=== PATIENT | female | born 1970 | race Caucasian/White ===

== ENCOUNTER 2017-04-11 14:15 | Inpatient (IN) | payer OTHER ==
[~2017-04-11] VITALS: Ht 160 cm; Wt 50.0 kg
[2017-04-11 13:40] VITALS: BP 138/69; RESP 18
[2017-04-11 14:41] VITALS: PULSE 62
[2017-04-11] MEDS ORDERED: DOCUSATE SODIUM 100 MG CAP PO PRN (15:30)
[2017-04-11] MEDS ORDERED: ALBUTEROL/IPRATROPIUM (NEB) 3 ML AMP HHN PRN (15:30)
[2017-04-11] MEDS ORDERED: hydrALAzine 20 MG INJ IV PRN (15:30)
[2017-04-11] MEDS ORDERED: ACETAMINOPHEN 325 MG TAB PO PRN (15:30)
[2017-04-11] MEDS ORDERED: NITROGLYCERIN (SL) 0.4 MG TAB SL PRN (15:30)
[2017-04-11] MEDS ORDERED: MAGNESIUM HYDROXIDE 30ML CUP PO PRN (15:30)
[2017-04-11] MEDS ORDERED: NA PHOSPHATE/BIPHOS 133 ML ENEMA PR PRN (15:30)
[2017-04-11] MEDS ORDERED: HYDROCODONE/APAP (5/325) TAB PO PRN (15:30)
--- NOTE | 2017-04-11 15:41 | HP ---
Date/Time of Note Date/Time of Note DATE: 04/11/17 TIME: 15:36 Assessment/Plan VTE Prophylaxis VTE Prophylaxis Intervention: heparin Assessment/Plan Chief Complaint/Hosp Course Assessment and plan: 46-year-old female with abdominal pain, with signs of acute cholecystitis, elevated LFTs, pancreatitis, positive drug screen 1. Abdominal pain: Secondary to combination of possible cholecystitis and pancreatitis and also UTI - admit patient to telemetry floor. Check TSH, A1c, lipid panel. Trend her LFTs. Order for MRCP. Get GI and surgery consults. IV fluids, antiemetics 2. UTI: Again broad-spectrum antibiotics, follow final culture results, Tylenol as needed pain fever 3. Positive drug screen: Again positive for lead, opiates, amphetamines. Prior history of heroin abuse -Monitor for withdrawal, counseled on cessation 4. Hypertension: Blood pressure presently stable, hydralazine as needed Problems: HPI/ROS Admit Date/Time Admit Date/Time Apr 11, 2017 at 14:15 Hx of Present Illness 46-year-old female past medical history of 4, IV drug abuse possibly heroin, and hypertension, who presented to outside hospital earlier today because of abdominal pain. Patient states the symptoms have been going on for the last 2 days. Apparently she had eaten some outside food at a fast food joint, a chicken Caesar salad, and the abdominal pain symptoms started right after that. She had nonbilious nonbloody vomiting symptoms and positive nausea , but no upper or lower GI bleeding, no diarrhea or constipation, no chest pain or shortness of breath, no headaches or dizziness or loss of consciousness. When she arrived at the outside hospital she was found with elevated lipase levels, signs of possible acute cholecystitis, positive drug screen for amphetamines, marijuana, and opiates. She also has a positive EU TI, and elevated liver enzymes. PMH/Family/Social Past Surgical History Past Surgical Hx: other ( 4, constructive hernia surgery) Family History Significant Family History: no pertinent family hx Social History Smoking Status: Current every day smoker (Half a pack of cigarettes a day 15 years) Drug Use: other (Methamphetamine, opiates, marijuana, possibly heroin) Exam/Review of Systems Vital Signs Vitals Vital Signs Date Time Temp Pulse Resp B/P Pulse Ox O2 Delivery O2 Flow Rate FiO2 04/11/17 14:41 62 Exam Exam General: Lying in bed, in mild to moderate distress, but answering questions HEENT: Pupils equal round reactive to light extraocular muscles intact Neck: Supple Oscillatory: Clear to auscultation bilaterally Cardiovascular: S1-S2 heard no rubs no gallops Abdomen: Tenderness to palpation epigastric area and right upper quadrant area, normal bowel sounds, no rebound or guarding Muscular skeletal: No lower extremity edema bilaterally Neurologic: No focal deficits Medications Medications Current Medications Ondansetron HCl (Zofran Inj) 4 mg Q6H PRN IV NAUSEA AND/OR VOMITING; Start at 15:30 Acetaminophen (Tylenol Tab) 650 mg Q6H PRN PO PAIN LEVEL 1-3 OR FEVER; Start at 15:30 Acetaminophen/ Hydrocodone Bitart ([place] (5/325)) 1 tab Q6H PRN PO MODERATE PAIN LEVEL 4-6; Start 04/11/17 at 15:30 Morphine Sulfate (morphine) 2 mg Q4H PRN IV SEVERE PAIN LEVEL 7-10; Start 04/11 at 15:30 Docusate Sodium (Colace) 100 mg Q12H PRN PO CONSTIPATION; Start 04/11/17 at 15: 30 Magnesium Hydroxide (Milk Of Mag) 30 ml DAILY PRN PO CONSTIPATION; Start at 15:30 Sodium Biphosphate/ Sodium Phosphate (Fleet Enema) 133 ml DAILY PRN [place] CONSTIPATION; Start 04/11/17 at 15:30 Heparin Sodium (Porcine) (Heparin (5000 Units/0.5 ml)) 5,000 unit Q12 SC ; Start 04/11/17 at 21:00 Lorazepam 0.5 mg 0.5 mg Q6H PRN IV ANXIETY; Start 04/11/17 at 15:30 Sodium Chloride (NS) 1,000 ml @ 100 mls/hr Q10H IV ; Start 04/11/17 at 15:13 Hydralazine HCl (Apresoline) 10 mg Q6H PRN IV ELEVATED BLOOD PRESSURE; Start at 15:30 Nitroglycerin (Nitroglycerin (Sl Tab) 0.4 Mg) 1 tab Q5M PRN SL ANGINA; Start at 15:30 LUCIANO MAIER Apr 11, 2017 15:41
[2017-04-11 15:59] VITALS: BP 158/83; RESP 17
[2017-04-11 16:12] LABS: ALBUMIN 3.3 g/dl (3.3-4.9); BILIRUBIN,DIRECT 2.3 mg/dl (0.00-0.20); BILIRUBIN,INDIRECT 0.6 mg/dl (0-1.1); BILIRUBIN,TOTAL 2.9 mg/dl (0.2-1.3); TOTAL PROTEIN 6.7 g/dl (6.1-8.1)
[2017-04-11] MEDS: ONDANSETRON 4 MG INJ IV PRN ×2 (16:17→22:45)
[2017-04-11] MEDS: SOD CHLORIDE 0.9% 1,000 ML IV SCH (16:17)
[2017-04-11] MEDS: morphine 2 MG INJ IV PRN ×2 (16:17→21:36)
[2017-04-11 16:20] VITALS: Ht 160 cm; Wt 50.0 kg
--- NOTE | 2017-04-11 16:48 | CONS ---
Date/Time of Note Date/Time of Note DATE: 04/11/17 TIME: 16:32 Assessment/Plan Assessment/Plan Additional Assessment/Plan Assessment * Right upper quadrant pain cholelithiasis by CT scan * Elevated transaminases R/O intrahepatic vs extrahepatic etiology R/O choledocholithiasis vs infectious vs others * Drug abuse * History of hypertension Plan * Pain control * Hepatitis profile/RUBY testing * MRCP * NPO * case discussed with Dr Arora * Further orders will depend on clinical course Consultation Date/Type/Reason Admit Date/Time Apr 11, 2017 at 14:15 Date of Consultation: Apr 11, 2017 Type of Consultation: Gastroenterology Reason for Consultation transaminitis/pancreatitis Referring Provider: LUCIANO MAIER Hx of Present Illness 46 year old female with history of drug abuse ,hypertension was transferred to our facility because of abdominal pain and insurance issues.Present condition apparently started 2 day prior to consult at epigastric pain radiating to right upper abdomen and to the back with associated nausea and vomiting She denies any fever ,hematemesis nor chest pain.Workup performed at [facility] revealed Total bilirubin 3.8,alkaline phosphatase 338,ALT 2047,AST 3648 ,WBC 6.[address] abdomen gallbladder thickening,possibility of cholecystitis.Ultrasound revealed multiple gallstones with pericholecystic edema ,gallbladder thickening. Patient was subsequently transferred here Presently patient still right upper quadrant nauseated. Constitutional: improved, no complaints Eyes: no complaints ENT: no complaints Respiratory: no complaints Cardiovascular: no complaints Gastrointestinal: nausea, pain, vomiting Genitourinary: no complaints Musculoskeletal: no complaints Skin: no complaints Neurologic: no complaints Endocrine: no complaints Lymphatic: no complaints Psychological: nl mood/affect, no complaints Immunologic: no complaints Past Medical History Medical History: hypertension Past Surgical History Past Surgical Hx: other ( section) Social History Smoking Status: Current every day smoker (Half a pack of cigarettes a day 15 years) Drug Use: other (Methamphetamine, opiates, marijuana, possibly heroin) Exam/Review of Systems Vital Signs Vitals Vital Signs Date Time Temp Pulse Resp B/P Pulse Ox O2 Delivery O2 Flow Rate FiO2 04/11/17 14:41 62 Exam Constitutional: alert, oriented, well developed Psych: nl mood/affect, no complaints Head: atraumatic, normocephalic Eyes: EOMI, PERRL, nl conjunctiva, nl lids, nl sclera ENMT: nl external ears & nose, nl lips & teeth, nl nasal mucosa & septum Neck: non-tender, supple Respiratory: clear to auscultation, normal air movement Cardiovascular: nl pulses, regular rate and rhythm Gastrointestinal: bowel sounds, other ((+) [place] sign), soft, tender (right upper quadrant) Musculoskeletal: nl extremities to inspection, nl gait and stance Extremities: normal pulses Neurological: nl speech, nl strength Skin: nl turgor, No rash or lesions Lymph: nl lymph nodes Results Results 24 hrs Laboratory Tests Test 04/11/17 15:41 Free Thyroxine 0.76 Medications Medications Current Medications Ondansetron HCl (Zofran Inj) 4 mg Q6H PRN IV NAUSEA AND/OR VOMITING Last administered on 04/11/17 16:17; Admin Dose 4 MG; Start 04/11/17 at 15:30 Acetaminophen (Tylenol Tab) 650 mg Q6H PRN PO PAIN LEVEL 1-3 OR FEVER; Start at 15:30 Acetaminophen/ Hydrocodone Bitart ([place] (5/325)) 1 tab Q6H PRN PO MODERATE PAIN LEVEL 4-6; Start 04/11/17 at 15:30 Morphine Sulfate (morphine) 2 mg Q4H PRN IV SEVERE PAIN LEVEL 7-10 Last administered on 04/11/17 16:17; Admin Dose 2 MG; Start 04/11/17 at 15:30 Docusate Sodium (Colace) 100 mg Q12H PRN PO CONSTIPATION; Start 04/11/17 at 15: 30 Magnesium Hydroxide (Milk Of Mag) 30 ml DAILY PRN PO CONSTIPATION; Start at 15:30 Sodium Biphosphate/ Sodium Phosphate (Fleet Enema) 133 ml DAILY PRN [place] CONSTIPATION; Start 04/11/17 at 15:30 Heparin Sodium (Porcine) (Heparin (5000 Units/0.5 ml)) 5,000 unit Q12 SC ; Start 04/11/17 at 21:00 Lorazepam 0.5 mg 0.5 mg Q6H PRN IV ANXIETY; Start 04/11/17 at 15:30 Sodium Chloride (NS) 1,000 ml @ 100 mls/hr Q10H IV Last administered on 16:17; Admin Dose 100 MLS/HR; Start 04/11/17 at 15:13 Hydralazine HCl (Apresoline) 10 mg Q6H PRN IV ELEVATED BLOOD PRESSURE; Start at 15:30 Nitroglycerin 1 tab 1 tab Q5M PRN SL ANGINA; Start 04/11/17 at 15:30 Piperacillin Sod/ Tazobactam Sod (Zosyn 3.375gm/ 100 ml (Pmx)) 100 ml @ 25 mls/ hr TID@02,10,18 IVPB ; Start 04/11/17 at 18:00 NAVEED IRIZARRY NP Apr 11, 2017 16:42
[2017-04-11] MEDS: PIPER-TAZO 3.375 GM IV (PMX) 100 ML IVPB SCH (17:44)
[2017-04-11 19:47] VITALS: BP 158/97; RESP 19
[2017-04-11 20:10] VITALS: PULSE 55
[2017-04-11] MEDS: HEPARIN 5,000 UNIT/0.5 ML VIAL SC SCH (21:32)
[2017-04-12] MEDS: KETOROLAC 30 MG INJ IV PRN ×3 (00:24→22:59)
[2017-04-12] MEDS: morphine 4 MG/ML VIAL IV PRN ×2 (01:05→14:21)
[2017-04-12] MEDS: SOD CHLORIDE 0.9% 1,000 ML IV SCH ×3 (01:13→11:13)
[2017-04-12] MEDS: PIPER-TAZO 3.375 GM IV (PMX) 100 ML IVPB SCH ×3 (01:51→18:06)
[2017-04-12] MEDS: LORAZEPAM 2 MG INJ IV PRN ×2 (02:04→18:10)
[2017-04-12 07:33] VITALS: BP 159/88; RESP 16
[2017-04-12 08:18] LABS: HAAIG REFLEX REFLEX FILED
[2017-04-12 08:24] LABS: HEMOGLOBIN 13.3 g/dl (12.0-16.0); MEAN CORPUSCULAR HEMOGLOBIN 28.3 pg (29.0-33.0); MEAN CORPUSCULAR HGB CONC 32.4 g/dl (32.0-37.0); MEAN CORPUSCULAR VOLUME 87.2 fl (82.0-101.0); MEAN PLATELET VOLUME 11.6 fl (7.4-10.4); PLATELET COUNT 252 10^3/UL (140-415); RED CELL DISTRIBUTION WIDTH 14.8 % (11.5-14.5); WHITE BLOOD COUNT 5.7 10^3/ul (4.8-10.8)
[2017-04-12 08:36] LABS: POSITIVE DIFF @See below
[2017-04-12 08:46] LABS: ALBUMIN 3.2 g/dl (3.3-4.9); BILIRUBIN,DIRECT 2.8 mg/dl (0.00-0.20); BILIRUBIN,INDIRECT 0.8 mg/dl (0-1.1); BILIRUBIN,TOTAL 3.6 mg/dl (0.2-1.3); TOTAL PROTEIN 6.3 g/dl (6.1-8.1)
[2017-04-12 08:49] LABS: CALCIUM 8.7 mg/dl (8.4-10.2); CHOL/HDL RATIO 7.2 RATIO; CREATININE 0.64 mg/dl (0.44-1.00); MAGNESIUM 1.9 mg/dl (1.7-2.5); PHOSPHORUS 3.3 mg/dl (2.5-4.9); POTASSIUM 3.9 mmol/L (3.5-5.1)
[2017-04-12 09:00] LABS: INR 1.19; PROTIME 15.2 Sec (12.2-14.2); PT RATIO 1.2
[2017-04-12] MEDS: HEPARIN 5,000 UNIT/0.5 ML VIAL SC SCH ×2 (09:14→21:03)
[2017-04-12 09:35] LABS: ANISOCYTOSIS 2+ (0-0); BURR CELLS 2+ (0-0); HYPOCHROMASIA 2+ (0-0); MONOCYTES % (M) 7 % (0-11); PLATELET ESTIMATE NORMAL; POIKILOCYTOSIS 2+ (0-0); POLYCHROMASIA 1+ (0-0)
[2017-04-12 12:59] LABS: THYROID STIMULATING HORMONE 6.81 MIU/L (0.465-4.680)
[2017-04-12 13:17] LABS: HEPATITIS B CORE ANTIBODY REACTIVE (NEGATIVE)
--- NOTE | 2017-04-12 15:01 | PN ---
Date/Time of Note Date/Time of Note DATE: 04/12/17 TIME: 14:58 Assessment/Plan VTE Prophylaxis VTE Prophylaxis Intervention: heparin Lines/Catheters IV Catheter Type (from [facility]): Peripheral IV Urinary Cath still in place: No Assessment/Plan Chief Complaint/Hosp Course Assessment and plan: 46-year-old female with abdominal pain, with signs of acute cholecystitis, elevated LFTs, pancreatitis, positive drug screen, now with positive hepatitis B antigen and antibody findings. 1. Abdominal pain: Secondary to combination of possible cholecystitis, UTI, and possibly active hepatitis B inflammation/infection. Her AST and ALT are significantly elevated, in 4485-6137 range. Also elevated total bilirubin and direct bilirubin. -Continue to trend her LFTs. -Follow-up MRCP result. -Follow-up GI and surgery consult recommended -Continue IV fluids, antiemetics -We will order for more hepatitis B antibodies including delta, core, surface , as well as try to obtain hepatitis B viral load. Also get infectious disease consult. 2. UTI: Again broad-spectrum antibiotics, follow final culture results, Tylenol as needed pain fever 3. Positive drug screen: Again positive for lead, opiates, amphetamines. Prior history of heroin abuse -Monitor for withdrawal, counseled on cessation 4. Hypertension: Blood pressure presently stable, hydralazine as needed Problems: Subjective 24 Hr Interval Summary Free Text/Dictation Patient still with moderate amount of abdominal pain, seen by GI team. Awaiting MRCP. Being evaluated by surgery team right now. Exam/Review of Systems Vital Signs Vitals Vital Signs Date Time Temp Pulse Resp B/P Pulse Ox O2 Delivery O2 Flow Rate FiO2 04/12/17 07:33 98.2 87 16 159/88 97 Intake and Output 04/11/17 04/11/17 04/12/17 15:00 23:00 07:00 Intake Total 1150 ml Balance 1150 ml Exam General: Lying in bed, in mild to moderate distress, but answering questions HEENT: Pupils equal round reactive to light extraocular muscles intact Neck: Supple Oscillatory: Clear to auscultation bilaterally Cardiovascular: S1-S2 heard no rubs no gallops Abdomen: Tenderness to palpation epigastric area and right upper quadrant area, normal bowel sounds, no rebound or guarding Muscular skeletal: No lower extremity edema bilaterally Neurologic: No focal deficits Results Result Diagram: 04/12/1764304/12/1744 Results 24 hrs Laboratory Tests Test 04/11/17 15:41 04/12/17 06:44 Total Bilirubin 2.9 H 3.6 H Direct Bilirubin 2.30 H 2.80 H Indirect Bilirubin 0.6 0.8 Aspartate Amino Transf (AST/SGOT) 3697 H 3830 H Alanine Aminotransferase (ALT/SGPT) 2234 H 2309 H Alkaline Phosphatase 332 H 330 H Total Protein 6.7 6.3 Albumin 3.3 3.2 L Free Thyroxine 0.76 White Blood Count 5.7 Red Blood Count 4.70 Hemoglobin 13.3 Hematocrit 41.0 Mean Corpuscular Volume 87.2 Mean Corpuscular Hemoglobin 28.3 L Mean Corpuscular Hemoglobin Concent 32.4 Red Cell Distribution Width 14.8 H Platelet Count 252 Mean Platelet Volume 11.6 H Neutrophils % Segmented Neutrophils % (Manual) 67 Band Neutrophils % (Manual) 5 H Lymphocytes % Lymphocytes % (Manual) 21 Monocytes % Monocytes % (Manual) 7 Eosinophils % Basophils % Nucleated Red Blood Cells % 0.0 Neutrophils # (Manual) 4 Band Neutrophils # 0.2 Absolute Lymphocytes (Manual) 1.1 Lymphocytes # Monocytes # Absolute Monocytes (Manual) 0.3 Eosinophils # Basophils # Nucleated Red Blood Cells # Platelet Estimate NORMAL Polychromasia 1+ Hypochromasia 2+ Poikilocytosis 2+ Anisocytosis 2+ Macrocytosis 2+ Prothrombin Time 15.2 H Prothrombin Time Ratio 1.2 INR International Normalized Ratio 1.19 Sodium Level 137 Potassium Level 3.9 Chloride Level 105 Carbon Dioxide Level 26 Anion Gap 10 Blood Urea Nitrogen 9 Creatinine 0.64 Glucose Level 82 Hemoglobin A1c 5.5 Calcium Level 8.7 Phosphorus Level 3.3 Magnesium Level 1.9 Ferritin 126.0 Triglycerides Level 152 H Cholesterol Level 101 LDL Cholesterol, Calculated 57 HDL Cholesterol 14 L Cholesterol/HDL Ratio 7.2 Lipase 92 Thyroid Stimulating Hormone (TSH) 6.810 H Hepatitis B Surface Antigen POSITIVE H Hepatitis B Core Total Antibody REACTIVE H Hepatitis C Antibody NEGATIVE Medications Medications Current Medications Ondansetron HCl (Zofran Inj) 4 mg Q6H PRN IV NAUSEA AND/OR VOMITING Last administered on 04/11/17t 22:45; Admin Dose 4 MG; Start 04/11/17 at 15:30 Acetaminophen (Tylenol Tab) 650 mg Q6H PRN PO PAIN LEVEL 1-3 OR FEVER; Start at 15:30 Acetaminophen/ Hydrocodone Bitart ([place] (5/325)) 1 tab Q6H PRN PO MODERATE PAIN LEVEL 4-6 Last administered on 04/12/17 02:04; Admin Dose 1 TAB; Start at 15:30 Docusate Sodium (Colace) 100 mg Q12H PRN PO CONSTIPATION; Start 04/11/17 at 15: 30 Magnesium Hydroxide (Milk Of Mag) 30 ml DAILY PRN PO CONSTIPATION; Start at 15:30 Sodium Biphosphate/ Sodium Phosphate (Fleet Enema) 133 ml DAILY PRN [place] CONSTIPATION; Start 04/11/17 at 15:30 Heparin Sodium (Porcine) (Heparin (5000 Units/0.5 ml)) 5,000 unit Q12 SC Last administered on 04/12/17 09:14; Admin Dose 5,000 UNIT; Start 04/11/17 at 21:00 Lorazepam 0.5 mg 0.5 mg Q6H PRN IV ANXIETY Last administered on 04/12/17 02:04 ; Admin Dose 0.5 MG; Start 04/11/17 at 15:30 Sodium Chloride (NS) 1,000 ml @ 100 mls/hr Q10H IV Last administered on 06:54; Admin Dose 100 MLS/HR; Start 04/11/17 at 15:13 Hydralazine HCl (Apresoline) 10 mg Q6H PRN IV ELEVATED BLOOD PRESSURE; Start at 15:30 Nitroglycerin 1 tab 1 tab Q5M PRN SL ANGINA; Start 04/11/17 at 15:30 Piperacillin Sod/ Tazobactam Sod (Zosyn 3.375gm/ 100 ml (Pmx)) 100 ml @ 25 mls/ hr TID@02,10,18 IVPB Last administered on 04/12/17 10:10; Admin Dose 25 MLS/HR ; Start 04/11/17 at 18:00 Ketorolac Tromethamine (Toradol) 30 mg Q6H PRN IV PAIN Last administered on 14:20; Admin Dose 30 MG; Start 04/12/17 at 00:09; Stop 04/15/17 at 00:08 Morphine Sulfate (morphine) 4 mg Q4H PRN IV SEVERE PAIN LEVEL 7-10 Last administered on 04/12/17t 14:21; Admin Dose 4 MG; Start 04/12/17 at 00:30 LUCIANO MAIER Apr 12, 2017 15:01
--- NOTE | 2017-04-12 15:12 | CONS ---
Date/Time of Note Date/Time of Note DATE: 04/12/17 TIME: 15:11 Assessment/Plan Assessment/Plan Additional Assessment/Plan [facility] INPATIENT CONSULTATION NOTE DATE OF SERVICE: 04/12/2017 PLACE OF SERVICE: [facility], fifth floor [facility] ASSESSMENT AND PLAN: A very-pleasant but unfortunate 46-year-old lady with multiple comorbidities, admitted with active hepatitis B infection and possible acute cholecystitis. Will need to discuss case in a multidisciplinary fashion, especially with gastroenterology, regarding possible timing of surgical intervention. Suspect that we can wait a few days to see if the hepatitis B infection subsides prior to exposing the patient to the stress of an operation. I am not certain that a HIDA scan at this point would be useful since it is usually affected by active hepatitis B. Will discuss further with Dr. Arora. With above assessment, I've recommended the followin. Continue current management 2. Adequate pain control (patient likely has low threshold for pain and will require larger than normal doses) 3. Multidisciplinary discussion 4. If no surgery or endoscopic intervention planned, the patient may be able to take orals until procedure is planned 5. Likely will need laparoscopic cholecystectomy during this admission Thank you very much for having me involved in the care of this very pleasant patient and wonderful family. If you have any questions, please feel free to contact me at [phone]. Nature of presenting problem: High severity Please note that, given the extensive number of diagnoses or management options , the extensive amount and/or complexity of data needed to be reviewed ( including more than 50 pages of outside records and outside ultrasound, chest x- ray and CT scan of the abdomen and pelvis), and high risk of complications and/ or morbidity or mortality, this qualifies as high complexity type of decision- making. Disclaimer: Inadvertent spelling and grammatical errors are likely due to EHR/ dictation software use and do not reflect on the quality of delivered patient care. Also, please note that the electronic time recorded on this node does not necessarily reflect the actual time of the visit. Updated clinical summary: A very-pleasant but unfortunate 46-year-old lady with multiple comorbidities, admitted with active hepatitis B infection and possible acute cholecystitis. Comorbidities: 1. Active hepatitis B infection 2. Gallbladder wall thickening in the setting of #1 above, possibly indicating acute cholecystitis 3. Intravenous drug abuse (drug screen positive for opiates, amphetamines at [facility] March 2017) 4. Hypertension 5. Urinary tract infection 6. 4 CONSULTATION REQUESTED BY: Valeriy Naik MD HISTORY OF PRESENT ILLNESS: The patient is a very pleasant but unfortunate 46- year-old lady with above-mentioned comorbidities whom we were kindly asked consult regarding management of possible acute cholecystitis in the setting of acute hepatitis B infection with elevation in AST and ALT in the thousands. Patient was transferred from an outside hospital after presenting with 2 day history of abdominal pain associated with some nausea and some vomiting. No obvious blood in the emesis. No diarrhea. No constipation. No blood in the stool or urine. She was diagnosed with urinary tract infection during this phase as well. Drug screen was positive for amphetamines, marijuana, and opiates. Patient was emotional during my visit and was crying. No other major complaints and above. ALLERGIES: NO KNOWN DRUG ALLERGIES MEDICATIONS Documented in the electronic records and reviewed by me. Please see the electronic records for details, as well as details for inpatient medications which were also reviewed by me. SOCIAL HISTORY: + Tob (currently every day smoker; half a pack of cigarettes per day for 15 years); occasional ETOH; + IVDU (methamphetamines, opiates, marijuana, and possibly heroin loss. FAMILY HISTORY: There are no significant medical, surgical or oncologic issues in the family as reported by the patient or reflected in the chart. REVIEW OF SYSTEMS: Other than mentioned above, there were no other pertinent positives or pertinent negatives in an otherwise complete 14 point review of systems. PHYSICAL EXAMINATION GENERAL: The patient appears to be a very pleasant lady of non- descent lying in bed, appearing stated age, and otherwise in no acute distress. BMI: 19.5 VITAL SIGNS: AVSS (please also see auto important data if available as well as the electronic records) HEENT: Normocephalic and atraumatic. Extraocular muscles and hearing are grossly intact bilaterally and symmetrically. Sclerae are nonicteric. Oral cavity is clear; oral mucosa appear to be pink and moist. Dentition: fair. NECK: Supple. There is no lymphadenopathy or JVD. There is no submental, submandibular or supraclavicular lymphadenopathy. CHEST: Rises symmetrically with each breath; patient is breathing comfortably. There are no audible wheezes, rales or rhonchi on the gross exam. HEART: Pulse is regular and palpable on the right wrist. Capillary refill is normal. Carotid pulses are palpable bilaterally and symmetrically in the neck. EXTREMITIES: Lower extremities contain no pitting edema around the ankles bilaterally and symmetrically. ABDOMEN: Abdomen is soft, mildly tender to palpation in the right upper and mid upper quadrants and nondistended. No evidence of ascites, organomegaly, caput medusae, engorged subcutaneous veins, or other abnormalities. There are no peritoneal signs or guarding. SKIN: Appears to be pink and feels warm to touch. NEUROLOGIC: Awake, alert, and follows commands appropriately. LABORATORY DATA: See below IMAGING: See electronic chart. Please note that I've personally reviewed all pertinent available images and I agree in general with their overall reported findings. Outside images reviewed and show you can gallbladder wall but negative Pickett sign on the ultrasound. CT scan unremarkable. Consultation Date/Type/Reason Admit Date/Time Apr 11, 2017 at 14:15 Constitutional: improved, no complaints Eyes: no complaints ENT: no complaints Respiratory: no complaints Cardiovascular: no complaints Gastrointestinal: nausea, pain, vomiting Genitourinary: no complaints Musculoskeletal: no complaints Skin: no complaints Neurologic: no complaints Endocrine: no complaints Lymphatic: no complaints Psychological: nl mood/affect, no complaints Immunologic: no complaints Past Medical History Medical History: hypertension Past Surgical History Past Surgical Hx: other ( section) Social History Smoking Status: Current every day smoker (Half a pack of cigarettes a day 15 years) Drug Use: other (Methamphetamine, opiates, marijuana, possibly heroin) Exam/Review of Systems Vital Signs Vitals Vital Signs Date Time Temp Pulse Resp B/P Pulse Ox O2 Delivery O2 Flow Rate FiO2 04/12/17 07:33 98.2 87 16 159/88 97 Intake and Output 04/11/17 04/11/17 04/12/17 15:00 23:00 07:00 Intake Total 1150 ml Balance 1150 ml Results Result Diagram: 04/12/17 0644 04/12/17 0644 Results 24 hrs Laboratory Tests Test 04/11/17 15:41 04/12/17 06:44 Total Bilirubin 2.9 H 3.6 H Direct Bilirubin 2.30 H 2.80 H Indirect Bilirubin 0.6 0.8 Aspartate Amino Transf (AST/SGOT) 3697 H 3830 H Alanine Aminotransferase (ALT/SGPT) 2234 H 2309 H Alkaline Phosphatase 332 H 330 H Total Protein 6.7 6.3 Albumin 3.3 3.2 L Free Thyroxine 0.76 White Blood Count 5.7 Red Blood Count 4.70 Hemoglobin 13.3 Hematocrit 41.0 Mean Corpuscular Volume 87.2 Mean Corpuscular Hemoglobin 28.3 L Mean Corpuscular Hemoglobin Concent 32.4 Red Cell Distribution Width 14.8 H Platelet Count 252 Mean Platelet Volume 11.6 H Neutrophils % Segmented Neutrophils % (Manual) 67 Band Neutrophils % (Manual) 5 H Lymphocytes % Lymphocytes % (Manual) 21 Monocytes % Monocytes % (Manual) 7 Eosinophils % Basophils % Nucleated Red Blood Cells % 0.0 Neutrophils # (Manual) 4 Band Neutrophils # 0.2 Absolute Lymphocytes (Manual) 1.1 Lymphocytes # Monocytes # Absolute Monocytes (Manual) 0.3 Eosinophils # Basophils # Nucleated Red Blood Cells # Platelet Estimate NORMAL Polychromasia 1+ Hypochromasia 2+ Poikilocytosis 2+ Anisocytosis 2+ Macrocytosis 2+ Prothrombin Time 15.2 H Prothrombin Time Ratio 1.2 INR International Normalized Ratio 1.19 Sodium Level 137 Potassium Level 3.9 Chloride Level 105 Carbon Dioxide Level 26 Anion Gap 10 Blood Urea Nitrogen 9 Creatinine 0.64 Glucose Level 82 Hemoglobin A1c 5.5 Calcium Level 8.7 Phosphorus Level 3.3 Magnesium Level 1.9 Ferritin 126.0 Triglycerides Level 152 H Cholesterol Level 101 LDL Cholesterol, Calculated 57 HDL Cholesterol 14 L Cholesterol/HDL Ratio 7.2 Lipase 92 Thyroid Stimulating Hormone (TSH) 6.810 H Hepatitis B Surface Antigen POSITIVE H Hepatitis B Core Total Antibody REACTIVE H Hepatitis C Antibody NEGATIVE Medications Medications Current Medications Ondansetron HCl (Zofran Inj) 4 mg Q6H PRN IV NAUSEA AND/OR VOMITING Last administered on 04/11/17 22:45; Admin Dose 4 MG; Start 04/11/17 at 15:30 Acetaminophen (Tylenol Tab) 650 mg Q6H PRN PO PAIN LEVEL 1-3 OR FEVER; Start at 15:30 Acetaminophen/ Hydrocodone Bitart ([place] (5/325)) 1 tab Q6H PRN PO MODERATE PAIN LEVEL 4-6 Last administered on 04/12/17 02:04; Admin Dose 1 TAB; Start at 15:30 Docusate Sodium (Colace) 100 mg Q12H PRN PO CONSTIPATION; Start 04/11/17 at 15: 30 Magnesium Hydroxide (Milk Of Mag) 30 ml DAILY PRN PO CONSTIPATION; Start at 15:30 Sodium Biphosphate/ Sodium Phosphate (Fleet Enema) 133 ml DAILY PRN [place] CONSTIPATION; Start 04/11/17 at 15:30 Heparin Sodium (Porcine) (Heparin (5000 Units/0.5 ml)) 5,000 unit Q12 SC Last administered on 04/12/17 09:14; Admin Dose 5,000 UNIT; Start 04/11/17 at 21:00 Lorazepam (Ativan) 0.5 mg Q6H PRN IV ANXIETY Last administered on 04/12/17 02: 04; Admin Dose 0.5 MG; Start 04/11/17 at 15:30 Hydralazine HCl (Apresoline) 10 mg Q6H PRN IV ELEVATED BLOOD PRESSURE; Start at 15:30 Nitroglycerin 1 tab 1 tab Q5M PRN SL ANGINA; Start 04/11/17 at 15:30 Piperacillin Sod/ Tazobactam Sod (Zosyn 3.375gm/ 100 ml (Pmx)) 100 ml @ 25 mls/ hr TID@02,10,18 IVPB Last administered on 04/12/17 10:10; Admin Dose 25 MLS/HR ; Start 04/11/17 at 18:00 Ketorolac Tromethamine (Toradol) 30 mg Q6H PRN IV PAIN Last administered on 14:20; Admin Dose 30 MG; Start 04/12/17 at 00:09; Stop 04/15/17 at 00:08 Morphine Sulfate 4 mg 4 mg Q4H PRN IV SEVERE PAIN LEVEL 7-10 Last administered on 04/12/17 14:21; Admin Dose 4 MG; Start 04/12/17 at 00:30 Dextrose/Sodium Chloride (D5-1/2ns) 1,000 ml @ 75 mls/hr [id number] IV ; Start at 15:00 MILI MORELAND M.D. Apr 12, 2017 15:12
[2017-04-12] MEDS: DEXTROSE 5%-0.45% NACL 1,000 ML IV SCH (15:48)
--- NOTE | 2017-04-12 15:58 | PN ---
Date/Time of Note Date/Time of Note DATE: 04/12/17 TIME: 15:54 Assessment/Plan VTE Prophylaxis VTE Prophylaxis Intervention: SCD's Lines/Catheters IV Catheter Type (from Nrs): Peripheral IV Urinary Cath still in place: No Assessment/Plan Assessment/Plan Assessment * Right upper quadrant pain cholelithiasis by CT scan * Elevated transaminases R/O intrahepatic vs extrahepatic etiology R/O choledocholithiasis vs infectious vs others * Drug abuse * History of hypertension Plan * Pain control * Hepatitis profile/RUBY testing * MRCP * NPO * case discussed with Dr Arora * Further orders will depend on clinical course Subjective 24 Hr Interval Summary Free Text/Dictation * Course reviewed with RN * Patient seen and examined * Awaiting MRI * still with abdominal pain Exam/Review of Systems Vital Signs Vitals Vital Signs Date Time Temp Pulse Resp B/P Pulse Ox O2 Delivery O2 Flow Rate FiO2 04/12/17 07:33 98.2 87 16 159/88 97 Intake and Output 04/11/17 04/11/17 04/12/17 15:00 23:00 07:00 Intake Total 1150 ml Balance 1150 ml Exam Constitutional: alert, frail Neck: non-tender, supple Respiratory: clear to auscultation, normal air movement Cardiovascular: nl pulses, regular rate and rhythm Gastrointestinal: soft, tender, No rebound or guarding Extremities: normal pulses Neurological: nl mental status, nl speech Skin: nl turgor, No rash or lesions Results Result Diagram: 04/12/17 0644 04/12/17 0644 Results 24 hrs Laboratory Tests Test 04/12/17 06:44 White Blood Count 5.7 Red Blood Count 4.70 Hemoglobin 13.3 Hematocrit 41.0 Mean Corpuscular Volume 87.2 Mean Corpuscular Hemoglobin 28.3 L Mean Corpuscular Hemoglobin Concent 32.4 Red Cell Distribution Width 14.8 H Platelet Count 252 Mean Platelet Volume 11.6 H Neutrophils % Segmented Neutrophils % (Manual) 67 Band Neutrophils % (Manual) 5 H Lymphocytes % Lymphocytes % (Manual) 21 Monocytes % Monocytes % (Manual) 7 Eosinophils % Basophils % Nucleated Red Blood Cells % 0.0 Neutrophils # (Manual) 4 Band Neutrophils # 0.2 Absolute Lymphocytes (Manual) 1.1 Lymphocytes # Monocytes # Absolute Monocytes (Manual) 0.3 Eosinophils # Basophils # Nucleated Red Blood Cells # Platelet Estimate NORMAL Polychromasia 1+ Hypochromasia 2+ Poikilocytosis 2+ Anisocytosis 2+ Macrocytosis 2+ Prothrombin Time 15.2 H Prothrombin Time Ratio 1.2 INR International Normalized Ratio 1.19 Sodium Level 137 Potassium Level 3.9 Chloride Level 105 Carbon Dioxide Level 26 Anion Gap 10 Blood Urea Nitrogen 9 Creatinine 0.64 Glucose Level 82 Hemoglobin A1c 5.5 Calcium Level 8.7 Phosphorus Level 3.3 Magnesium Level 1.9 Ferritin 126.0 Total Bilirubin 3.6 H Direct Bilirubin 2.80 H Indirect Bilirubin 0.8 Aspartate Amino Transf (AST/SGOT) 3830 H Alanine Aminotransferase (ALT/SGPT) 2309 H Alkaline Phosphatase 330 H Total Protein 6.3 Albumin 3.2 L Triglycerides Level 152 H Cholesterol Level 101 LDL Cholesterol, Calculated 57 HDL Cholesterol 14 L Cholesterol/HDL Ratio 7.2 Lipase 92 Thyroid Stimulating Hormone (TSH) 6.810 H Hepatitis B Surface Antigen POSITIVE H Hepatitis B Core Total Antibody REACTIVE H Hepatitis C Antibody NEGATIVE Medications Medications Current Medications Ondansetron HCl (Zofran Inj) 4 mg Q6H PRN IV NAUSEA AND/OR VOMITING Last administered on 04/11/17 22:45; Admin Dose 4 MG; Start 04/11/17 at 15:30 Acetaminophen (Tylenol Tab) 650 mg Q6H PRN PO PAIN LEVEL 1-3 OR FEVER; Start at 15:30 Acetaminophen/ Hydrocodone Bitart ([place] (5/325)) 1 tab Q6H PRN PO MODERATE PAIN LEVEL 4-6 Last administered on 04/12/17 02:04; Admin Dose 1 TAB; Start at 15:30 Docusate Sodium (Colace) 100 mg Q12H PRN PO CONSTIPATION; Start 04/11/17 at 15: 30 Magnesium Hydroxide (Milk Of Mag) 30 ml DAILY PRN PO CONSTIPATION; Start at 15:30 Sodium Biphosphate/ Sodium Phosphate (Fleet Enema) 133 ml DAILY PRN [place] CONSTIPATION; Start 04/11/17 at 15:30 Heparin Sodium (Porcine) (Heparin (5000 Units/0.5 ml)) 5,000 unit Q12 SC Last administered on 04/12/17 09:14; Admin Dose 5,000 UNIT; Start 04/11/17 at 21:00 Lorazepam (Ativan) 0.5 mg Q6H PRN IV ANXIETY Last administered on 04/12/17 02: 04; Admin Dose 0.5 MG; Start 04/11/17 at 15:30 Hydralazine HCl (Apresoline) 10 mg Q6H PRN IV ELEVATED BLOOD PRESSURE; Start at 15:30 Nitroglycerin 1 tab 1 tab Q5M PRN SL ANGINA; Start 04/11/17 at 15:30 Piperacillin Sod/ Tazobactam Sod (Zosyn 3.375gm/ 100 ml (Pmx)) 100 ml @ 25 mls/ hr TID@,,18 IVPB Last administered on 04/12/17 10:10; Admin Dose 25 MLS/HR ; Start 04/11/17 at 18:00 Ketorolac Tromethamine (Toradol) 30 mg Q6H PRN IV PAIN Last administered on 14:20; Admin Dose 30 MG; Start 04/12/17 at 00:09; Stop 04/15/17 at 00:08 Morphine Sulfate 4 mg 4 mg Q4H PRN IV SEVERE PAIN LEVEL 7-10 Last administered on 04/12/17 14:21; Admin Dose 4 MG; Start 04/12/17 at 00:30 Dextrose/Sodium Chloride (D5-1/2ns) 1,000 ml @ 75 mls/hr [id number] IV Last administered on 04/12/17 15:48; Admin Dose 75 MLS/HR; Start 04/12/17 at 15:00 NAVEED IRIZARRY NP Apr 12, 2017 15:58
[2017-04-12] MEDS: HYDROmorphONE 1 MG/ML SYG IV PRN ×2 (16:42→21:03)
--- NOTE | 2017-04-12 17:05 | CONS ---
Date/Time of Note Date/Time of Note DATE: 04/12/17 TIME: 17:04 Consultation Date/Type/Reason Admit Date/Time Apr 11, 2017 at 14:15 Date of Consultation: Apr 12, 2017 Type of Consultation: ID Reason for Consultation Antibiotic management Constitutional: improved, no complaints Eyes: no complaints ENT: no complaints Respiratory: no complaints Cardiovascular: no complaints Gastrointestinal: nausea, pain, vomiting Genitourinary: no complaints Musculoskeletal: no complaints Skin: no complaints Neurologic: no complaints Endocrine: no complaints Lymphatic: no complaints Psychological: nl mood/affect, no complaints Immunologic: no complaints Past Medical History Medical History: hypertension Past Surgical History Past Surgical Hx: other ( section) Social History Smoking Status: Current every day smoker (Half a pack of cigarettes a day 15 years) Drug Use: other (Methamphetamine, opiates, marijuana, possibly heroin) Exam/Review of Systems Vital Signs Vitals Vital Signs Date Time Temp Pulse Resp B/P Pulse Ox O2 Delivery O2 Flow Rate FiO2 04/12/17 07:33 98.2 87 16 159/88 97 Intake and Output 04/11/17 04/11/17 04/12/17 15:00 23:00 07:00 Intake Total 1150 ml Balance 1150 ml Results Result Diagram: 04/12/17 0644 04/12/17 0644 Results 24 hrs Laboratory Tests Test 04/12/17 06:44 04/12/17 14:56 White Blood Count 5.7 Red Blood Count 4.70 Hemoglobin 13.3 Hematocrit 41.0 Mean Corpuscular Volume 87.2 Mean Corpuscular Hemoglobin 28.3 L Mean Corpuscular Hemoglobin Concent 32.4 Red Cell Distribution Width 14.8 H Platelet Count 252 Mean Platelet Volume 11.6 H Neutrophils % Segmented Neutrophils % (Manual) 67 Band Neutrophils % (Manual) 5 H Lymphocytes % Lymphocytes % (Manual) 21 Monocytes % Monocytes % (Manual) 7 Eosinophils % Basophils % Nucleated Red Blood Cells % 0.0 Neutrophils # (Manual) 4 Band Neutrophils # 0.2 Absolute Lymphocytes (Manual) 1.1 Lymphocytes # Monocytes # Absolute Monocytes (Manual) 0.3 Eosinophils # Basophils # Nucleated Red Blood Cells # Platelet Estimate NORMAL Polychromasia 1+ Hypochromasia 2+ Poikilocytosis 2+ Anisocytosis 2+ Macrocytosis 2+ Prothrombin Time 15.2 H Prothrombin Time Ratio 1.2 INR International Normalized Ratio 1.19 Sodium Level 137 Potassium Level 3.9 Chloride Level 105 Carbon Dioxide Level 26 Anion Gap 10 Blood Urea Nitrogen 9 Creatinine 0.64 Glucose Level 82 Hemoglobin A1c 5.5 Calcium Level 8.7 Phosphorus Level 3.3 Magnesium Level 1.9 Ferritin 126.0 Total Bilirubin 3.6 H Direct Bilirubin 2.80 H Indirect Bilirubin 0.8 Aspartate Amino Transf (AST/SGOT) 3830 H Alanine Aminotransferase (ALT/SGPT) 2309 H Alkaline Phosphatase 330 H Total Protein 6.3 Albumin 3.2 L Triglycerides Level 152 H Cholesterol Level 101 LDL Cholesterol, Calculated 57 HDL Cholesterol 14 L Cholesterol/HDL Ratio 7.2 Lipase 92 Thyroid Stimulating Hormone (TSH) 6.810 H Hepatitis B Surface Antigen POSITIVE H Hepatitis B Core Total Antibody REACTIVE H REACTIVE H Hepatitis C Antibody NEGATIVE Hepatitis B Surface Antibody NEGATIVE HIV (1&2) Antibody NEGATIVE Medications Medications Current Medications Ondansetron HCl (Zofran Inj) 4 mg Q6H PRN IV NAUSEA AND/OR VOMITING Last administered on 04/11/17 22:45; Admin Dose 4 MG; Start 04/11/17 at 15:30 Acetaminophen (Tylenol Tab) 650 mg Q6H PRN PO PAIN LEVEL 1-3 OR FEVER; Start at 15:30 Acetaminophen/ Hydrocodone Bitart ([place] (5/325)) 1 tab Q6H PRN PO MODERATE PAIN LEVEL 4-6 Last administered on 04/12/17 02:04; Admin Dose 1 TAB; Start at 15:30 Docusate Sodium (Colace) 100 mg Q12H PRN PO CONSTIPATION; Start 04/11/17 at 15: 30 Magnesium Hydroxide (Milk Of Mag) 30 ml DAILY PRN PO CONSTIPATION; Start at 15:30 Sodium Biphosphate/ Sodium Phosphate (Fleet Enema) 133 ml DAILY PRN [place] CONSTIPATION; Start 04/11/17 at 15:30 Heparin Sodium (Porcine) (Heparin (5000 Units/0.5 ml)) 5,000 unit Q12 SC Last administered on 04/12/17 09:14; Admin Dose 5,000 UNIT; Start 04/11/17 at 21:00 Lorazepam (Ativan) 0.5 mg Q6H PRN IV ANXIETY Last administered on 04/12/17 02: 04; Admin Dose 0.5 MG; Start 04/11/17 at 15:30 Hydralazine HCl (Apresoline) 10 mg Q6H PRN IV ELEVATED BLOOD PRESSURE; Start at 15:30 Nitroglycerin 1 tab 1 tab Q5M PRN SL ANGINA; Start 04/11/17 at 15:30 Piperacillin Sod/ Tazobactam Sod (Zosyn 3.375gm/ 100 ml (Pmx)) 100 ml @ 25 mls/ hr TID@02,,18 IVPB Last administered on 04/12/17 10:10; Admin Dose 25 MLS/HR ; Start 04/11/17 at 18:00 Ketorolac Tromethamine 30 mg 30 mg Q6H PRN IV PAIN Last administered on 14:20; Admin Dose 30 MG; Start 04/12/17 at 00:09; Stop 04/15/17 at 00:08 Dextrose/Sodium Chloride (D5-1/2ns) 1,000 ml @ 75 mls/hr [id number] IV Last administered on 04/12/17 15:48; Admin Dose 75 MLS/HR; Start 04/12/17 at 15:00 Hydromorphone HCl (Dilaudid) 0.5 mg Q4H PRN IV PAIN Last administered on 16:42; Admin Dose 0.5 MG; Start 04/12/17 at 17:00 KARL COSTELLO MD Apr 12, 2017 17:04
[2017-04-12 19:53] VITALS: BP 152/80; RESP 19
--- NOTE | 2017-04-12 20:43 | CONS ---
DATE OF ADMISSION: 04/11/2017 DATE OF CONSULTATION: 04/12/2017 Infectious Disease Consultation REASON FOR CONSULTATION: Antibiotic management. HISTORY OF PRESENT ILLNESS: The patient is a 46-year-old, pleasant, unfortunate female, with numerous problems, who comes in now with abdominal pain. Past problems include: 1. x4. 2. IV drug abuse, possibly heroin. 3. Hypertension. The patient presented with abdominal pain over the last 2 days prior to admission, which she felt was attributed to a chicken Caesar salad. She had some nonbilious vomiting, nausea. When she arrived at the hospital she was found to have elevated lipase levels, signs of acute cholecystitis, positive drug screen for amphetamines, marijuana and opiates. HOSPITAL COURSE: The patient came in with a white count of 5.7, H and H 13.3 and 41, platelet count of 252,000. BUN and creatinine was 9/0.64. Total bilirubin was 3.6, direct is 2.8. AST is 3830, ALT 2309, alkaline phosphatase today is 330, consistent with significant hepatitis. Her hepatitis B surface antigen is positive. The hepatitis B core antibody is also positive. She is hepatitis C negative, HIV negative, so it is unclear if she has active hepatitis B or some other entity, the core antibody is negative, reactive hepatitis surface antibody so far is negative, so she probably has hepatitis B at this point. The patient was seen in consultation by Dr. Alon Santacruz. He felt that the patient had multiple comorbidities, admitted with hepatitis B infection and possible acute cholecystitis. He recommended a HIDA scan. He felt she had active hepatitis B infection, gallbladder wall thickening and possible acute cholecystitis, IV drug abuse, hypertension, urinary tract infection, and C-sections x4. PAST MEDICAL HISTORY: Operations as outlined. FAMILY HISTORY: Noncontributory. SOCIAL HISTORY: She is an everyday smoker half a pack of cigarettes a day for 15 years. She uses amphetamine, opiates, marijuana and possibly heroin. ALLERGIES: NONE TO PENICILLIN, SULFA, OR FOODS. MEDICATION: Per chart. REVIEW OF SYSTEMS: As per HPI. PHYSICAL EXAMINATION: GENERAL APPEARANCE: The patient is a well-developed, well- nourished female, who is uncomfortable, lying in bed, in mild to moderate distress. VITAL SIGNS: Stable. She is afebrile. T-max 98.2. SKIN: Without generalized rash. HEENT: Within normal limits. NECK: Supple. Lymph nodes not palpable. CHEST: Decreased breath sounds at the bases. HEART: Without murmur or gallop. ABDOMEN: Soft. She has tenderness to palpation in the mid epigastrium and right upper quadrant. EXTREMITIES: Without cyanosis, clubbing, or edema. RECTAL/GENITAL: Deferred. NEUROLOGICAL: No focal neurological deficits. PLAN: The patient was also seen by Dr. Arora's PA. Currently the patient's white count is 5.7, hepatitis profile RUBY testing was done. The plan is to do an MRCP. Also, she is going for MRI scan of the abdomen, possibly MRCP. She is currently on Zosyn, though this is probably related to her possible cholecystitis. We will continue her on the antibiotics for the time being. We should do some blood cultures. I will dictate my findings to the hospitalist and to Dr. Alon Santacruz. Dictated By: Jabari Crowley MD JD/savannah/wanda /Document#: [id number]
[2017-04-13] MEDS: PIPER-TAZO 3.375 GM IV (PMX) 100 ML IVPB SCH ×3 (01:11→18:23)
[2017-04-13] MEDS: HYDROmorphONE 1 MG/ML SYG IV PRN ×6 (01:12→20:19)
[2017-04-13] MEDS: LORAZEPAM 2 MG INJ IV PRN ×3 (02:38→21:17)
[2017-04-13] MEDS: DEXTROSE 5%-0.45% NACL 1,000 ML IV SCH ×2 (04:20→11:28)
[2017-04-13 07:26] LABS: BASOPHILS % 0.7 % (0.0-2.0); EOSINOPHILS # 0.1 10^3/ul (0.0-0.5); EOSINOPHILS % 1.3 % (0.0-7.0); HEMATOCRIT 36.3 % (37.0-47.0); HEMOGLOBIN 11.9 g/dl (12.0-16.0); LYMPHOCYTES # 1.6 10^3/ul (0.8-2.9); LYMPHOCYTES % 30.5 % (15.0-51.0); MEAN CORPUSCULAR HEMOGLOBIN 28.6 pg (29.0-33.0); MEAN CORPUSCULAR HGB CONC 32.8 g/dl (32.0-37.0); MEAN CORPUSCULAR VOLUME 87.3 fl (82.0-101.0); MONOCYTE # 0.5 10^3/ul (0.3-0.9); MONOCYTES % 9.2 % (0.0-11.0); NEUTROPHILS % 57.9 % (39.0-77.0); PLATELET COUNT 215 10^3/UL (140-415); RED BLOOD COUNT 4.16 10^6/ul (4.20-5.40); RED CELL DISTRIBUTION WIDTH 15.1 % (11.5-14.5); WHITE BLOOD COUNT 5.3 10^3/ul (4.8-10.8)
[2017-04-13 07:29] LABS: POSITIVE DIFF @See below
[2017-04-13 07:43] VITALS: BP 136/82; RESP 16
[2017-04-13 07:51] LABS: ALBUMIN 2.9 g/dl (3.3-4.9); BILIRUBIN,DIRECT 3.4 mg/dl (0.00-0.20); BILIRUBIN,INDIRECT 0.9 mg/dl (0-1.1); BILIRUBIN,TOTAL 4.3 mg/dl (0.2-1.3); TOTAL PROTEIN 5.9 g/dl (6.1-8.1)
[2017-04-13 07:54] LABS: CALCIUM 8.5 mg/dl (8.4-10.2); CREATININE 0.63 mg/dl (0.44-1.00); POTASSIUM 3.6 mmol/L (3.5-5.1)
[2017-04-13] MEDS: KETOROLAC 30 MG INJ IV PRN (08:45)
[2017-04-13] MEDS: HEPARIN 5,000 UNIT/0.5 ML VIAL SC SCH (08:54)
--- NOTE | 2017-04-13 12:09 | PN ---
Date/Time of Note Date/Time of Note DATE: 04/13/17 TIME: 12:06 Assessment/Plan VTE Prophylaxis VTE Prophylaxis Intervention: SCD's Lines/Catheters IV Catheter Type (from [facility]): Peripheral IV Urinary Cath still in place: No Assessment/Plan Chief Complaint/Hosp Course Assessment and plan: 46-year-old female with abdominal pain, with signs of acute cholecystitis, elevated LFTs, pancreatitis, positive drug screen, now with positive hepatitis B antigen and antibody findings. 1. Abdominal pain: Secondary to combination of possible cholecystitis, UTI, and possibly active hepatitis B inflammation/infection. Her AST and ALT are significantly elevated, in 7273-1432 range. Also elevated total bilirubin and direct bilirubin. -Continue to trend her LFTs. -Follow-up MRCP result (pending). -Follow-up GI and surgery consult rec's -Continue IV fluids, antiemetics -Follow-up hepatitis B antibodies including delta, core, surface, as well as try to obtain hepatitis B viral load. Getting these results will help determine if patient needs antiretrovirals, interferon, or other treatment for hepatitis B. -Follow-up ID Recs 2. UTI: Diagnosed at outside hospital - again continue broad-spectrum antibiotics, follow final culture results, Tylenol as needed pain fever 3. Positive drug screen: Again positive for lead, opiates, amphetamines. Prior history of heroin abuse -Monitor for withdrawal, counseled on cessation 4. Hypertension: Blood pressure presently stable, hydralazine as needed Problems: Subjective 24 Hr Interval Summary Free Text/Dictation Patient still with abdominal pain. Had MRCP yesterday, results still pending. Seen by surgery GI and ID team as well yesterday. Exam/Review of Systems Vital Signs Vitals Vital Signs Date Time Temp Pulse Resp B/P Pulse Ox O2 Delivery O2 Flow Rate FiO2 04/13/17 07:43 98.0 81 16 136/82 98 Intake and Output 04/12/17 04/12/17 04/13/17 15:00 23:00 07:00 Intake Total 600 ml Balance 600 ml Exam General: Lying in bed, in mild to moderate distress, but answering questions HEENT: Pupils equal round reactive to light extraocular muscles intact Neck: Supple Oscillatory: Clear to auscultation bilaterally Cardiovascular: S1-S2 heard no rubs no gallops Abdomen: Tenderness to palpation epigastric area and right upper quadrant area, normal bowel sounds, no rebound or guarding Muscular skeletal: No lower extremity edema bilaterally Neurologic: No focal deficits Results Result Diagram: 04/13/17 0701 04/13/17 0701 Results 24 hrs Laboratory Tests Test 04/12/17 14:56 04/13/17 07:01 Hepatitis B Surface Antibody NEGATIVE Hepatitis B Core Total Antibody REACTIVE H HIV (1&2) Antibody NEGATIVE White Blood Count 5.3 Red Blood Count 4.16 L Hemoglobin 11.9 L Hematocrit 36.3 L Mean Corpuscular Volume 87.3 Mean Corpuscular Hemoglobin 28.6 L Mean Corpuscular Hemoglobin Concent 32.8 Red Cell Distribution Width 15.1 H Platelet Count 215 Mean Platelet Volume 11.0 H Neutrophils % 57.9 Lymphocytes % 30.5 Monocytes % 9.2 Eosinophils % 1.3 Basophils % 0.7 Nucleated Red Blood Cells % 0.0 Neutrophils # (Manual) 3 Lymphocytes # 1.6 Monocytes # 0.5 Eosinophils # 0.1 Basophils # 0.0 Nucleated Red Blood Cells # 0.0 Sodium Level 135 Potassium Level 3.6 Chloride Level 103 Carbon Dioxide Level 26 Anion Gap 10 Blood Urea Nitrogen 6 L Creatinine 0.63 Glucose Level 96 Calcium Level 8.5 Total Bilirubin 4.3 H Direct Bilirubin 3.40 H Indirect Bilirubin 0.9 Aspartate Amino Transf (AST/SGOT) 3777 H Alanine Aminotransferase (ALT/SGPT) 2253 H Alkaline Phosphatase 274 H Total Protein 5.9 L Albumin 2.9 L Medications Medications Current Medications Ondansetron HCl (Zofran Inj) 4 mg Q6H PRN IV NAUSEA AND/OR VOMITING Last administered on 04/11/17t 22:45; Admin Dose 4 MG; Start 04/11/17 at 15:30 Acetaminophen (Tylenol Tab) 650 mg Q6H PRN PO PAIN LEVEL 1-3 OR FEVER; Start at 15:30 Docusate Sodium (Colace) 100 mg Q12H PRN PO CONSTIPATION; Start 04/11/17 at 15: 30 Magnesium Hydroxide (Milk Of Mag) 30 ml DAILY PRN PO CONSTIPATION; Start at 15:30 Sodium Biphosphate/ Sodium Phosphate (Fleet Enema) 133 ml DAILY PRN [place] CONSTIPATION; Start 04/11/17 at 15:30 Lorazepam (Ativan) 0.5 mg Q6H PRN IV ANXIETY Last administered on 04/13/17 08: 56; Admin Dose 0.5 MG; Start 04/11/17 at 15:30 Hydralazine HCl (Apresoline) 10 mg Q6H PRN IV ELEVATED BLOOD PRESSURE; Start at 15:30 Nitroglycerin 1 tab 1 tab Q5M PRN SL ANGINA; Start 04/11/17 at 15:30 Piperacillin Sod/ Tazobactam Sod 100 ml @ 25 mls/hr TID@,,18 IVPB Last administered on 04/13/17 11:27; Admin Dose 25 MLS/HR; Start 04/11/17 at 18:00 Dextrose/Sodium Chloride (D5-1/2ns) 1,000 ml @ 75 mls/hr [id number] IV Last administered on 04/13/17 11:28; Admin Dose 75 MLS/HR; Start 04/12/17 at 15:00 Hydromorphone HCl (Dilaudid) 0.5 mg Q4H PRN IV PAIN Last administered on 11:27; Admin Dose 0.5 MG; Start 04/12/17 at 17:00 LUCIANO MAIER Apr 13, 2017 12:09
--- NOTE | 2017-04-13 12:17 | RADRPT ---
PROCEDURE: MRCP. CLINICAL INDICATION: Cholangitis. Abdominal pain. Elevated liver enzymes. TECHNIQUE: MRCP was performed on a high field MRI scanner. Patient was examined without contrast. 3-D coronal rotating MIP images of the biliary tree are available for review. COMPARISON: None available. FINDINGS: Motion artifact is present on all sequences limiting evaluation of fine detail. Despite this limitat ion, the liver, spleen, pancreas and adrenal glands are grossly unremarkable. Collapse of the gallb ladder lumen is observed with marked concentric gallbladder wall thickening / edema. There is no pe richolecystic fluid. Tiny signal voids are seen within the gallbladder lumen suggesting the presenc e of cholelithiasis. There is no intrahepatic biliary duct dilatation. The common bile duct measur es 4 mm in greatest diameter, which is within normal limits. There are no signal voids within the c ommon bile duct to suggest the presence of choledocholithiasis. There is no pancreatic duct dilatat ion. The kidneys are symmetric in size and signal intensity. There is no hydronephrosis or perinephric e manuel. The abdominal aorta is normal in caliber. There is no periaortic / retroperitoneal lymphadenopathy. The stomach is collapsed. The visualized portions of the small and large intestines are unremarkabl e. There is no ascites. IMPRESSION: Cholelithiasis with marked concentric gallbladder wall thickening / edema which may be a result of h epatic parenchymal disease given the history of elevated liver enzymes. Correlate with hepatitis gutierrez el. There is no pericholecystic fluid, biliary tract obstruction or choledocholithiasis. RPTAT: HLST .Ashwini Farmer MD, Date Time Electronically viewed and signed by .Ashwini Farmer MD, MD on 04/13/2017 12:16 .T/
[2017-04-13] MEDS: FAMOTIDINE 20 MG TAB PO SCH (12:51)
[2017-04-13] MEDS: ONDANSETRON 4 MG INJ IV PRN ×2 (12:52→18:46)
[2017-04-13 14:00] VITALS: BP 135/81; RESP 18
--- NOTE | 2017-04-13 15:12 | PN ---
Date/Time of Note Date/Time of Note DATE: 04/13/17 TIME: 15:09 Assessment/Plan Lines/Catheters IV Catheter Type (from Nrsg): Peripheral IV Liriano in Place (from [facility]rs[facility]): No Assessment/Plan Assessment/Plan [facility] Progress Note Date of Service: 04/13/2017 Place of service: [facility] fourth floor Today's Assessment & Plan: Overall stable with slightly improved AST and ALT.concentric gallbladder noted on the MRCP. No indication for acute surgical intervention until hepatitis has improved. Lap charles afterwards during this admission. With above assessment, I've recommended the followin. Continue current management 2. Adequate pain control (patient likely has low threshold for pain and will require larger than normal doses) 3. Multidisciplinary discussion 4. If no surgery or endoscopic intervention planned, the patient may be able to take orals until procedure is planned 5. Likely will need laparoscopic cholecystectomy during this admission 6. Monitor LFTs Thank you very much for having me involved in the care of this very pleasant patient and wonderful family. If you have any questions, please feel free to contact me at [phone]. Nature of presenting problem: High severity Please note that, given the extensive number of diagnoses or management options , the extensive amount and/or complexity of data needed to be reviewed ( including more than 50 pages of outside records and outside ultrasound, chest x- ray and CT scan of the abdomen and pelvis), and high risk of complications and/ or morbidity or mortality, this qualifies as high complexity type of decision- making. Disclaimer: Inadvertent spelling and grammatical errors are likely due to EHR/ dictation software use and do not reflect on the quality of delivered patient care. Also, please note that the electronic time recorded on this node does not necessarily reflect the actual time of the visit. Updated clinical summary: A very-pleasant but unfortunate 46-year-old lady with multiple comorbidities, admitted with active hepatitis B infection and possible acute cholecystitis. Comorbidities: 1. Active hepatitis B infection 2. Gallbladder wall thickening in the setting of #1 above, possibly indicating acute cholecystitis 3. Intravenous drug abuse (drug screen positive for opiates, amphetamines at [facility] March 2017) 4. Hypertension 5. Urinary tract infection 6. 4 Subjective: No major events or complaints; still with abd pain and under semi-adequate control with medications; no n/v/d; no sob or cp; + flatus; - BM; - activity Objective: Vitals: See below I's & O's: See below Exam: GENERAL: On exam, the patient was lying in bed and appeared to be comfortable and in no acute distress. Quickly becomes emotional during the conversation. ABDOMEN: Soft, minimally to no tenderness to palpation in the right upper quadrant and no tenderness in the rest of the abdominal cavity, and nondistended. There are no peritoneal signs or guarding. SKIN: Skin appears to be pink and feels warm to touch. NEUROLOGIC: Patient is awake, alert, and follows commands appropriately. Labs: See below Exam/Review of Systems Vital Signs Vitals Vital Signs Date Time Temp Pulse Resp B/P Pulse Ox O2 Delivery O2 Flow Rate FiO2 04/13/17 14:00 97.9 71 18 135/81 100 Intake and Output 04/12/17 04/12/17 04/13/17 15:00 23:00 07:00 Intake Total 600 ml Balance 600 ml Results Result Diagram: 04/13/17 0701 04/13/17 0701 MILI MORELAND M.D. Apr 13, 2017 15:11
[2017-04-13 15:31] LABS: MYELOPEROXIDASE ANTIBODY <1.0 AI; PROTEINASE-3 ANTIBODY <1.0 AI
[2017-04-13 17:40] LABS: ANA SCREEN POSITIVE (NEGATIVE)
--- NOTE | 2017-04-13 18:19 | PN ---
DATE: 04/13/2017 SUBJECTIVE: No acute changes overnight. The patient is awake, lying down in bed. Denies pain. Complaining of feeling hungry and wants to eat. LABORATORY AND DIAGNOSTIC DATA: WBC 5.3, no shift, no bands. Serology for hepatitis B core total antibody came back positive. IgM pending. Antimicrobials: The patient is on Zosyn. PHYSICAL EXAMINATION: This is a well-developed, middle-aged white woman, who is awake, in no distress. HEENT: Head atraumatic, normocephalic. Sclerae anicteric. Buccal mucosa dry. NECK: Supple. CHEST: Chest rise symmetrical. Breath sounds clear. HEART: S1, S2. ABDOMEN: Soft with some tenderness on palpation. Bowel sounds present. EXTREMITIES: No cyanosis. ASSESSMENT: 1. Possible acute cholecystitis. Surgery on case. No indication for acute surgical intervention for now. 2. Possible hepatitis, pending final hepatitis serology. Gastroenterology on case. 3. IV drug abuse. 4. Hypertension. PLAN: The patient remains stable. She is on appropriate antimicrobials which we will continue for now. Follow Surgical and GI recommendations. Dictated By: Jocelyn Morse NP /savannah/aguilar /Document#: [id number]
--- NOTE | 2017-04-13 18:38 | PN ---
Date/Time of Note Date/Time of Note DATE: 04/13/17 TIME: 18:33 Assessment/Plan VTE Prophylaxis VTE Prophylaxis Intervention: SCD's Lines/Catheters IV [facility] (from [facility]): Peripheral IV Urinary Cath still in place: No Assessment/Plan Assessment/Plan Assessment/Plan Assessment/Plan Assessment * Right upper quadrant pain/abnormal liver function tests with hepatocellular pattern * Rule out acute hepatitis B, positive HBc total antibody, HBc IgM pending * Cholelithiasis, no evidence of choledocholithiasis * Drug abuse * History of hypertension Plan * Awaiting HBc IgM * Clear liquid diet * Avoid opiates if at all possible * Further orders will depend on clinical course Subjective Subjective 24 Hr Interval Summary Free Text/Dictation * Course reviewed with RN * Patient seen and examined * Complaining of epigastric abdominal pain * Also hungry Exam Constitutional: alert, frail, jaundice Neck: non-tender, supple Respiratory: clear to auscultation, normal air movement Cardiovascular: nl pulses, regular rate and rhythm Gastrointestinal: soft, tender, moderately tender epigastrium and right upper quadrant area No rebound or guarding Extremities: normal pulses Neurological: nl mental status, nl speech Skin: nl turgor, No rash or lesions Exam/Review of Systems Vital Signs Vitals Vital Signs Date Time Temp Pulse Resp B/P Pulse Ox O2 Delivery O2 Flow Rate FiO2 04/13/17 14:00 97.9 71 18 135/81 100 Intake and Output 04/12/17 04/12/17 04/13/17 15:00 23:00 07:00 Intake Total 600 ml Balance 600 ml Results Result Diagram: 04/13/17 0701 04/13/17 0701 Results 24 hrs Laboratory Tests Test 04/13/17 07:01 White Blood Count 5.3 Red Blood Count 4.16 L Hemoglobin 11.9 L Hematocrit 36.3 L Mean Corpuscular Volume 87.3 Mean Corpuscular Hemoglobin 28.6 L Mean Corpuscular Hemoglobin Concent 32.8 Red Cell Distribution Width 15.1 H Platelet Count 215 Mean Platelet Volume 11.0 H Neutrophils % 57.9 Lymphocytes % 30.5 Monocytes % 9.2 Eosinophils % 1.3 Basophils % 0.7 Nucleated Red Blood Cells % 0.0 Neutrophils # (Manual) 3 Lymphocytes # 1.6 Monocytes # 0.5 Eosinophils # 0.1 Basophils # 0.0 Nucleated Red Blood Cells # 0.0 Sodium Level 135 Potassium Level 3.6 Chloride Level 103 Carbon Dioxide Level 26 Anion Gap 10 Blood Urea Nitrogen 6 L Creatinine 0.63 Glucose Level 96 Calcium Level 8.5 Total Bilirubin 4.3 H Direct Bilirubin 3.40 H Indirect Bilirubin 0.9 Aspartate Amino Transf (AST/SGOT) 3777 H Alanine Aminotransferase (ALT/SGPT) 2253 H Alkaline Phosphatase 274 H Total Protein 5.9 L Albumin 2.9 L Medications Medications Current Medications Ondansetron HCl (Zofran Inj) 4 mg Q6H PRN IV NAUSEA AND/OR VOMITING Last administered on 04/13/17 12:52; Admin Dose 4 MG; Start 04/11/17 at 15:30 Acetaminophen (Tylenol Tab) 650 mg Q6H PRN PO PAIN LEVEL 1-3 OR FEVER; Start at 15:30 Docusate Sodium (Colace) 100 mg Q12H PRN PO CONSTIPATION; Start 04/11/17 at 15: 30 Magnesium Hydroxide (Milk Of Mag) 30 ml DAILY PRN PO CONSTIPATION; Start at 15:30 Sodium Biphosphate/ Sodium Phosphate (Fleet Enema) 133 ml DAILY PRN [place] CONSTIPATION; Start 04/11/17 at 15:30 Lorazepam (Ativan) 0.5 mg Q6H PRN IV ANXIETY Last administered on 04/13/17 08: 56; Admin Dose 0.5 MG; Start 04/11/17 at 15:30 Hydralazine HCl (Apresoline) 10 mg Q6H PRN IV ELEVATED BLOOD PRESSURE; Start at 15:30 Nitroglycerin 1 tab 1 tab Q5M PRN SL ANGINA; Start 04/11/17 at 15:30 Piperacillin Sod/ Tazobactam Sod 100 ml @ 25 mls/hr TID@02,10,18 IVPB Last administered on 04/13/17 18:23; Admin Dose 25 MLS/HR; Start 04/11/17 at 18:00 Dextrose/Sodium Chloride (D5-1/2ns) 1,000 ml @ 75 mls/hr [id number] IV Last administered on 04/13/17 11:28; Admin Dose 75 MLS/HR; Start 04/12/17 at 15:00 Hydromorphone HCl (Dilaudid) 1 mg Q3H PRN IV PAIN Last administered on 17:24; Admin Dose 1 MG; Start 04/13/17 at 12:30 Famotidine (Pepcid) 20 mg DAILY PO Last administered on 04/13/17 12:51; Admin Dose 20 MG; Start 04/13/17 at 13:00 DEEPAK SELLERS MD Apr 13, 2017 18:38
[2017-04-13 19:48] VITALS: BP 149/88; RESP 20
[2017-04-14] MEDS: KETOROLAC 30 MG INJ IV PRN ×4 (00:13→19:35)
[2017-04-14] MEDS: HYDROmorphONE 1 MG/ML SYG IV PRN ×4 (02:05→17:41)
[2017-04-14] MEDS: PIPER-TAZO 3.375 GM IV (PMX) 100 ML IVPB SCH ×3 (02:05→17:41)
[2017-04-14 02:19] VITALS: BP 118/63; RESP 20
[2017-04-14] MEDS: LORAZEPAM 2 MG INJ IV PRN ×3 (04:52→20:48)
[2017-04-14 05:16] LABS: BASOPHIL # 0.1 10^3/ul (0.0-0.1); BASOPHILS % 1.1 % (0.0-2.0); EOSINOPHILS # 0.1 10^3/ul (0.0-0.5); EOSINOPHILS % 1.1 % (0.0-7.0); HEMATOCRIT 33.3 % (37.0-47.0); HEMOGLOBIN 10.9 g/dl (12.0-16.0); LYMPHOCYTES # 1.9 10^3/ul (0.8-2.9); LYMPHOCYTES % 41.4 % (15.0-51.0); MEAN CORPUSCULAR HEMOGLOBIN 27.9 pg (29.0-33.0); MEAN CORPUSCULAR HGB CONC 32.7 g/dl (32.0-37.0); MEAN CORPUSCULAR VOLUME 85.2 fl (82.0-101.0); MEAN PLATELET VOLUME 11.1 fl (7.4-10.4); MONOCYTE # 0.4 10^3/ul (0.3-0.9); MONOCYTES % 9.7 % (0.0-11.0); NEUTROPHILS % 46.5 % (39.0-77.0); PLATELET COUNT 203 10^3/UL (140-415); RED BLOOD COUNT 3.91 10^6/ul (4.20-5.40); RED CELL DISTRIBUTION WIDTH 15.2 % (11.5-14.5); WHITE BLOOD COUNT 4.5 10^3/ul (4.8-10.8)
[2017-04-14 05:45] LABS: CALCIUM 8.4 mg/dl (8.4-10.2); CREATININE 0.61 mg/dl (0.44-1.00); POTASSIUM 3.7 mmol/L (3.5-5.1)
[2017-04-14 06:15] LABS: POSITIVE DIFF @See below
[2017-04-14] MEDS: DEXTROSE 5%-0.45% NACL 1,000 ML IV SCH (06:22)
[2017-04-14 07:00] VITALS: BP 127/83; RESP 18
[2017-04-14] MEDS: FAMOTIDINE 20 MG TAB PO SCH (08:17)
[2017-04-14 08:32] LABS: ALBUMIN 2.5 g/dl (3.3-4.9); BILIRUBIN,DIRECT 2.6 mg/dl (0.00-0.20); BILIRUBIN,TOTAL 3.6 mg/dl (0.2-1.3); TOTAL PROTEIN 5.5 g/dl (6.1-8.1)
--- NOTE | 2017-04-14 10:35 | PN ---
Date/Time of Note Date/Time of Note DATE: 04/14/17 TIME: 10:30 Assessment/Plan VTE Prophylaxis VTE Prophylaxis Intervention: SCD's Lines/Catheters IV C[facility]ter Type (from [facility]): Peripheral IV Urinary Cath still in place: No Assessment/Plan Chief Complaint/Hosp Course Assessment and plan: 46-year-old female with abdominal pain, with signs of acute cholecystitis, elevated LFTs, pancreatitis, positive drug screen, now with positive hepatitis B antigen and antibody findings. 1. Abdominal pain: Secondary to combination of possible cholecystitis, UTI, and possibly active hepatitis B inflammation/infection. Her AST and ALT are significantly elevated, in 2478-2919 range, and still elevated. Also elevated total bilirubin and direct bilirubin. MRCP results noted -Continue to trend her LFTs. -Follow-up GI and surgery consult rec's, for now on clear liquid diet. Per surgery team will likely need laparoscopic cholecystectomy when patient is more clinically stable -Continue IV fluids, antiemetics -Hepatitis B total core antibody levels are elevated - follow-up hepatitis B antibodies including delta, core IgM, surface, as well as hepatitis B viral load. Getting these results will help determine if patient needs antiretrovirals, interferon, or other treatment for hepatitis B. -Follow-up ID Recs 2. UTI: Diagnosed at outside hospital - again continue broad-spectrum antibiotics, follow final culture results, Tylenol as needed pain fever 3. Positive drug screen: Again positive for lead, opiates, amphetamines on admission. Prior history of heroin abuse -Monitor for withdrawal, counseled on cessation 4. Hypertension: Blood pressure presently stable, hydralazine as needed Problems: Subjective 24 Hr Interval Summary Free Text/Dictation Patient with some less right upper quadrant pain presently. Tolerating liquid diet. Exam/Review of Systems Vital Signs Vitals Vital Signs Date Time Temp Pulse Resp B/P Pulse Ox O2 Delivery O2 Flow Rate FiO2 04/14/17 07:00 97.7 88 18 127/83 97 Intake and Output 04/13/17 04/13/17 04/14/17 15:00 23:00 07:00 Intake Total 950 ml 350 ml Balance 950 ml 350 ml Exam General: Lying in bed, presently sleeping HEENT: Pupils equal round reactive to light extraocular muscles intact Neck: Supple Oscillatory: Clear to auscultation bilaterally Cardiovascular: S1-S2 heard no rubs no gallops Abdomen: some tenderness to palpation epigastric area and right upper quadrant area, normal bowel sounds, no rebound or guarding Muscular skeletal: No lower extremity edema bilaterally Neurologic: No focal deficits Results Result Diagram: 04/14/17 0438 04/14/17 0449 Results 24 hrs Laboratory Tests Test 04/14/17 04:38 04/14/17 04:49 04/14/17 08:41 White Blood Count 4.5 L Red Blood Count 3.91 L Hemoglobin 10.9 L Hematocrit 33.3 L Mean Corpuscular Volume 85.2 Mean Corpuscular Hemoglobin 27.9 L Mean Corpuscular Hemoglobin Concent 32.7 Red Cell Distribution Width 15.2 H Platelet Count 203 Mean Platelet Volume 11.1 H Neutrophils % 46.5 Lymphocytes % 41.4 Monocytes % 9.7 Eosinophils % 1.1 Basophils % 1.1 Nucleated Red Blood Cells % 0.0 Neutrophils # (Manual) 2 Lymphocytes # 1.9 Monocytes # 0.4 Eosinophils # 0.1 Basophils # 0.1 Nucleated Red Blood Cells # 0.0 Sodium Level 140 Potassium Level 3.7 Chloride Level 101 Carbon Dioxide Level 29 Anion Gap 14 Blood Urea Nitrogen 6 L Creatinine 0.61 Glucose Level 84 Calcium Level 8.4 Total Bilirubin 3.6 H Direct Bilirubin 2.60 H Indirect Bilirubin 1.0 Aspartate Amino Transf (AST/SGOT) 4179 H Alanine Aminotransferase (ALT/SGPT) 2254 H Alkaline Phosphatase 225 H Total Protein 5.5 L Albumin 2.5 L Bedside Glucose 101 Medications Medications Current Medications Ondansetron HCl (Zofran Inj) 4 mg Q6H PRN IV NAUSEA AND/OR VOMITING Last administered on 04/13/17t 18:46; Admin Dose 4 MG; Start 04/11/17 at 15:30 Acetaminophen (Tylenol Tab) 650 mg Q6H PRN PO PAIN LEVEL 1-3 OR FEVER; Start at 15:30 Docusate Sodium (Colace) 100 mg Q12H PRN PO CONSTIPATION; Start 04/11/17 at 15: 30 Magnesium Hydroxide (Milk Of Mag) 30 ml DAILY PRN PO CONSTIPATION; Start at 15:30 Sodium Biphosphate/ Sodium Phosphate (Fleet Enema) 133 ml DAILY PRN [place] CONSTIPATION; Start 04/11/17 at 15:30 Lorazepam (Ativan) 0.5 mg Q6H PRN IV ANXIETY Last administered on 04/14/17 04: 52; Admin Dose 0.5 MG; Start 04/11/17 at 15:30 Hydralazine HCl (Apresoline) 10 mg Q6H PRN IV ELEVATED BLOOD PRESSURE; Start at 15:30 Nitroglycerin 1 tab 1 tab Q5M PRN SL ANGINA; Start 04/11/17 at 15:30 Piperacillin Sod/ Tazobactam Sod 100 ml @ 25 mls/hr TID@02,,18 IVPB Last administered on 04/14/17 02:05; Admin Dose 25 MLS/HR; Start 04/11/17 at 18:00 Dextrose/Sodium Chloride (D5-1/2ns) 1,000 ml @ 75 mls/hr [id number] IV Last administered on 04/13/17 11:28; Admin Dose 75 MLS/HR; Start 04/12/17 at 15:00 Hydromorphone HCl (Dilaudid) 1 mg Q3H PRN IV PAIN Last administered on 08:18; Admin Dose 1 MG; Start 04/13/17 at 12:30 Famotidine (Pepcid) 20 mg DAILY PO Last administered on 04/14/17 08:17; Admin Dose 20 MG; Start 04/13/17 at 13:00 Ketorolac Tromethamine (Toradol) 30 mg Q6H PRN IV PAIN Last administered on 06:36; Admin Dose 30 MG; Start 04/13/17 at 22:00; Stop 04/16/17 at 21:59 Procedures Procedures MRCP: Impression: Cholelithiasis with marked concentric gallbladder wall thickening / edema which may be a result of hepatic parenchymal disease given the history of elevated liver enzymes. Correlate with hepatitis panel. There is no pericholecystic fluid, biliary tract obstruction or choledocholithiasis. LUCIANO MAIER Apr 14, 2017 10:34
[2017-04-14] MEDS: SOD CHLORIDE 0.45% 1,000 ML IV SCH ×2 (10:58→23:50)
--- NOTE | 2017-04-14 11:38 | PN ---
Date/Time of Note Date/Time of Note DATE: 04/14/17 TIME: 11:34 Assessment/Plan VTE Prophylaxis VTE Prophylaxis Intervention: SCD's Lines/Catheters IV [facility] (from [facility]): Peripheral IV Urinary Cath still in place: No Assessment/Plan Assessment/Plan Assessment * Right upper quadrant pain/abnormal liver function tests with hepatocellular pattern * Rule out acute hepatitis B, positive HBc total antibody, HBc IgM pending * Cholelithiasis, no evidence of choledocholithiasis * Drug abuse * History of hypertension * Opiate seeking behavior * Anxiety Plan * Awaiting HBc IgM and HBs Ag to confirm acute hepatitis B * Clear liquid diet * Avoid opiates if at all possible * Further orders will depend on clinical course Exam Subjective 24 Hr Interval Summary Free Text/Dictation * Course reviewed with RN * Patient seen and examined * Very lethargic * Complaining of epigastric abdominal pain and nausea * Tolerating clears * Hepatitis B surface antigen and hepatitis B core IgM antibody pending Exam/Review of Systems Vital Signs Vitals Vital Signs Date Time Temp Pulse Resp B/P Pulse Ox O2 Delivery O2 Flow Rate FiO2 04/14/17 07:00 97.7 88 18 127/83 97 Intake and Output 04/13/17 04/13/17 04/14/17 15:00 23:00 07:00 Intake Total 950 ml 350 ml Balance 950 ml 350 ml Exam Constitutional: alert, frail, jaundiced, lethargic (received Ativan) Neck: non-tender, supple Respiratory: clear to auscultation, normal air movement Cardiovascular: nl pulses, regular rate and rhythm Gastrointestinal: soft, moderately tender epigastrium and right upper quadrant area No rebound or guarding Extremities: normal pulses Neurological: nl mental status, nl speech Skin: nl turgor, No rash or lesions Results Result Diagram: 04/14/17 0438 04/14/17 0449 Results 24 hrs Laboratory Tests Test 04/14/17 04:38 04/14/17 04:49 04/14/17 08:41 White Blood Count 4.5 L Red Blood Count 3.91 L Hemoglobin 10.9 L Hematocrit 33.3 L Mean Corpuscular Volume 85.2 Mean Corpuscular Hemoglobin 27.9 L Mean Corpuscular Hemoglobin Concent 32.7 Red Cell Distribution Width 15.2 H Platelet Count 203 Mean Platelet Volume 11.1 H Neutrophils % 46.5 Lymphocytes % 41.4 Monocytes % 9.7 Eosinophils % 1.1 Basophils % 1.1 Nucleated Red Blood Cells % 0.0 Neutrophils # (Manual) 2 Lymphocytes # 1.9 Monocytes # 0.4 Eosinophils # 0.1 Basophils # 0.1 Nucleated Red Blood Cells # 0.0 Sodium Level 140 Potassium Level 3.7 Chloride Level 101 Carbon Dioxide Level 29 Anion Gap 14 Blood Urea Nitrogen 6 L Creatinine 0.61 Glucose Level 84 Calcium Level 8.4 Total Bilirubin 3.6 H Direct Bilirubin 2.60 H Indirect Bilirubin 1.0 Aspartate Amino Transf (AST/SGOT) 4179 H Alanine Aminotransferase (ALT/SGPT) 2254 H Alkaline Phosphatase 225 H Total Protein 5.5 L Albumin 2.5 L Bedside Glucose 101 Medications Medications Current Medications Ondansetron HCl (Zofran Inj) 4 mg Q6H PRN IV NAUSEA AND/OR VOMITING Last administered on 04/13/17 18:46; Admin Dose 4 MG; Start 04/11/17 at 15:30 Acetaminophen (Tylenol Tab) 650 mg Q6H PRN PO PAIN LEVEL 1-3 OR FEVER; Start at 15:30 Docusate Sodium (Colace) 100 mg Q12H PRN PO CONSTIPATION; Start 04/11/17 at 15: 30 Magnesium Hydroxide (Milk Of Mag) 30 ml DAILY PRN PO CONSTIPATION; Start at 15:30 Sodium Biphosphate/ Sodium Phosphate (Fleet Enema) 133 ml DAILY PRN [place] CONSTIPATION; Start 04/11/17 at 15:30 Lorazepam (Ativan) 0.5 mg Q6H PRN IV ANXIETY Last administered on 04/14/17 10: 52; Admin Dose 0.5 MG; Start 04/11/17 at 15:30 Hydralazine HCl (Apresoline) 10 mg Q6H PRN IV ELEVATED BLOOD PRESSURE; Start at 15:30 Nitroglycerin 1 tab 1 tab Q5M PRN SL ANGINA; Start 04/11/17 at 15:30 Piperacillin Sod/ Tazobactam Sod (Zosyn 3.375gm/ 100 ml (Pmx)) 100 ml @ 25 mls/ hr TID@02,10,18 IVPB Last administered on 04/14/17 10:51; Admin Dose 25 MLS/HR ; Start 04/11/17 at 18:00 Famotidine (Pepcid) 20 mg DAILY PO Last administered on 04/14/17 08:17; Admin Dose 20 MG; Start 04/13/17 at 13:00 Hydromorphone HCl (Dilaudid) 0.5 mg Q3H PRN IV PAIN; Start 04/14/17 at 12:30 Ketorolac Tromethamine 15 mg 15 mg Q6H PRN IV PAIN; Start 04/14/17 at 16:00; Stop 04/17/17 at 15:59 Sodium Chloride (1/2 NS) 1,000 ml @ 75 mls/hr [id number] IV Last administered on 04/14/17t 10:58; Admin Dose 75 MLS/HR; Start 04/14/17 at 10:30 DEEPAK SELLERS MD Apr 14, 2017 11:38
--- NOTE | 2017-04-14 14:05 | PN ---
Date/Time of Note Date/Time of Note DATE: 04/14/17 TIME: 14:03 Assessment/Plan Lines/Catheters IV Catheter Type (from Nrsg): Peripheral IV Liriano in Place (from Nrsg): No Assessment/Plan Assessment/Plan [facility] Progress Note Date of Service: 04/14/2017 Place of service: [facility] fourth floor Today's Assessment & Plan: Overall stable and somewhat clinically improved, but with persistently abnormal AST and ALT but improved T. bili. Concentric gallbladder noted on the MRCP. No indication for acute surgical intervention until hepatitis has improved. Lap charles afterwards during this admission. Discussed with patient and . Answered questions. With above assessment, I've recommended the followin. Continue current management 2. Adequate pain control (patient likely has low threshold for pain and will require larger than normal doses) 3. Multidisciplinary discussion 4. If no surgery or endoscopic intervention planned, the patient may be able to take orals until procedure is planned 5. Likely will need laparoscopic cholecystectomy during this admission 6. Monitor LFTs Thank you very much for having me involved in the care of this very pleasant patient and wonderful family. If you have any questions, please feel free to contact me at [phone]. Nature of presenting problem: High severity Please note that, given the extensive number of diagnoses or management options , the extensive amount and/or complexity of data needed to be reviewed ( including more than 50 pages of outside records and outside ultrasound, chest x- ray and CT scan of the abdomen and pelvis), and high risk of complications and/ or morbidity or mortality, this qualifies as high complexity type of decision- making. Disclaimer: Inadvertent spelling and grammatical errors are likely due to EHR/ dictation software use and do not reflect on the quality of delivered patient care. Also, please note that the electronic time recorded on this node does not necessarily reflect the actual time of the visit. Updated clinical summary: A very-pleasant but unfortunate 46-year-old lady with multiple comorbidities, admitted with active hepatitis B infection and possible acute cholecystitis. Comorbidities: 1. Active hepatitis B infection 2. Gallbladder wall thickening in the setting of #1 above, possibly indicating acute cholecystitis 3. Intravenous drug abuse (drug screen positive for opiates, amphetamines at [facility] March 2017) 4. Hypertension 5. Urinary tract infection 6. 4 Subjective: No major events or complaints; still with abd pain and under semi-adequate control with medications; reports feeling the same than the last few days; no n/ v/d; no sob or cp; + flatus; - BM; - activity Objective: Vitals: See below I's & O's: See below Exam: GENERAL: On exam, the patient was lying in bed and appeared to be comfortable and in no acute distress. Less emotional during the conversation. ABDOMEN: Soft, minimally to no tenderness to palpation in the right upper quadrant and no tenderness in the rest of the abdominal cavity, and nondistended. There are no peritoneal signs or guarding. SKIN: Skin appears to be pink and feels warm to touch. NEUROLOGIC: Patient is awake, alert, and follows commands appropriately. Labs: See below Exam/Review of Systems Vital Signs Vitals Vital Signs Date Time Temp Pulse Resp B/P Pulse Ox O2 Delivery O2 Flow Rate FiO2 04/14/17 07:00 97.7 88 18 127/83 97 Intake and Output 04/13/17 04/13/17 04/14/17 15:00 23:00 07:00 Intake Total 950 ml 350 ml Balance 950 ml 350 ml Results Result Diagram: 04/14/17 0438 04/14/17 0449 MILI MORELAND M.D. Apr 14, 2017 14:05
[2017-04-14 19:54] VITALS: BP 145/80; RESP 20
--- NOTE | 2017-04-14 21:58 | PN ---
DATE: 04/14/2017 SUBJECTIVE DATA: No events overnight per report. The patient is sleeping, looks comfortable, afebrile. OBJECTIVE DATA: VITAL SIGNS: Temperature 98.7, pulse 88, respirations 18, blood pressure 127/82, and saturation 97 on room air. LABORATORY AND DIAGNOSTIC DATA: WBC 4.5, platelets 203, no shift, no bands. BUN 6 and creatinine 0.61. ANTIMICROBIAL: Zosyn. PHYSICAL EXAMINATION: GENERAL: This is a well-developed, well-nourished, middle-aged woman who is in no distress. HEENT: Head atraumatic, normocephalic. Sclerae anicteric. Buccal mucosa dry. NECK: Supple. CHEST: Rise symmetrical. Breath sounds diminished at the bases. ABDOMEN: Soft, bowel sounds hypoactive. EXTREMITIES: Without cyanosis. ASSESSMENT: 1. Right upper quadrant abdominal pain with abnormal liver function tests, questionable acute hepatitis. 2. Cholelithiasis without evidence of choledocholithiasis. 3. Hypertension. 4. Drug abuse. 5. Opiate and drug-seeking behavior. PLAN: 1. Patient remains stable as per surgical note. There is no indication for acute surgical intervention at this point. 2. She is being followed by Gastroenterology pending final hepatitis panel. 3. Continue antibiotics. 4. Of note, her HIV serology was negative. Dictated By: Jocelyn Morse NP /savannah/juan f /Document#: [id number]
[2017-04-15] MEDS: PIPER-TAZO 3.375 GM IV (PMX) 100 ML IVPB SCH (01:20)
[2017-04-15] MEDS: HYDROmorphONE 1 MG/ML SYG IV PRN ×5 (01:21→19:37)
[2017-04-15 01:33] VITALS: BP 140/93; RESP 18
[2017-04-15] MEDS: KETOROLAC 30 MG INJ IV PRN ×2 (04:19→10:12)
[2017-04-15] MEDS: LORAZEPAM 2 MG INJ IV PRN ×3 (04:19→20:06)
[2017-04-15 05:09] LABS: BASOPHILS % 0.7 % (0.0-2.0); EOSINOPHILS # 0.1 10^3/ul (0.0-0.5); EOSINOPHILS % 1.1 % (0.0-7.0); HEMATOCRIT 33.7 % (37.0-47.0); LYMPHOCYTES # 1.8 10^3/ul (0.8-2.9); MEAN CORPUSCULAR HEMOGLOBIN 28.2 pg (29.0-33.0); MEAN CORPUSCULAR HGB CONC 32.6 g/dl (32.0-37.0); MEAN CORPUSCULAR VOLUME 86.4 fl (82.0-101.0); MEAN PLATELET VOLUME 11.6 fl (7.4-10.4); MONOCYTE # 0.4 10^3/ul (0.3-0.9); MONOCYTES % 8.9 % (0.0-11.0); NEUTROPHILS % 47.7 % (39.0-77.0); PLATELET COUNT 191 10^3/UL (140-415); RED CELL DISTRIBUTION WIDTH 15.3 % (11.5-14.5); WHITE BLOOD COUNT 4.4 10^3/ul (4.8-10.8)
[2017-04-15 05:43] LABS: CALCIUM 8.4 mg/dl (8.4-10.2); CREATININE 0.6 mg/dl (0.44-1.00); POTASSIUM 4.2 mmol/L (3.5-5.1)
[2017-04-15 06:29] LABS: POSITIVE DIFF @See below
[2017-04-15 06:30] LABS: LYMPHOCYTES % 41.1 % (15.0-51.0)
[2017-04-15] MEDS: FAMOTIDINE 20 MG TAB PO SCH (08:27)
[2017-04-15 08:30] VITALS: BP 154/88; RESP 18
--- NOTE | 2017-04-15 11:08 | PN ---
Date/Time of Note Date/Time of Note DATE: 04/15/17 TIME: 11:05 Assessment/Plan VTE Prophylaxis VTE Prophylaxis Intervention: SCD's Lines/Catheters IV [facility] Type (from [facility]): Peripheral IV Urinary Cath still in place: No Assessment/Plan Chief Complaint/Hosp Course Assessment and plan: 46-year-old female with abdominal pain, with signs of acute cholecystitis, elevated LFTs, pancreatitis, positive drug screen, now with positive hepatitis B antigen and antibody findings. 1. Abdominal pain: Secondary to combination of possible cholecystitis, UTI, and possibly active hepatitis B inflammation/infection as again hepatitis panel showed positive hepatitis B core antibody. Her AST and ALT are significantly elevated, in 5427-6140 range, and still elevated. Also elevated total bilirubin and direct bilirubin. MRCP results noted -Continue to trend her LFTs. -Follow-up GI and surgery consult rec's, for now on clear liquid diet. Per surgery team will likely need laparoscopic cholecystectomy when patient is more clinically stable -Continue IV fluids, antiemetics -Hepatitis B total core antibody levels are elevated - follow-up hepatitis B antibodies including delta, core IgM, surface, as well as hepatitis B viral load , and hepatitis B surface antigen test result (all of these are still pending). Getting these results will help determine if patient needs antiretrovirals, interferon, or other treatment for hepatitis B. -Follow-up ID Recs 2. UTI: Diagnosed at outside hospital - again continue broad-spectrum antibiotics, follow final culture results, Tylenol as needed pain fever 3. Positive drug screen: Again positive for lead, opiates, amphetamines on admission. Prior history of heroin abuse -Monitor for withdrawal, counseled on cessation, only low-dose Dilaudid IV and low-dose Toradol for now 4. Hypertension: Blood pressure presently stable, hydralazine as needed Problems: Subjective 24 Hr Interval Summary Free Text/Dictation No acute events overnight. Seen by GI, infectious disease, surgery teams and last 24 hours. Exam/Review of Systems Vital Signs Vitals Vital Signs Date Time Temp Pulse Resp B/P Pulse Ox O2 Delivery O2 Flow Rate FiO2 04/15/17 08:30 98.4 90 18 154/88 99 Intake and Output 04/14/17 04/14/17 04/15/17 15:00 23:00 07:00 Intake Total 100 ml 1100 ml 720 ml Balance 100 ml 1100 ml 720 ml Exam General: Lying in bed, presently sleeping HEENT: Pupils equal round reactive to light extraocular muscles intact Neck: Supple Oscillatory: Clear to auscultation bilaterally Cardiovascular: S1-S2 heard no rubs no gallops Abdomen: some tenderness to palpation epigastric area and right upper quadrant area, normal bowel sounds, no rebound or guarding Muscular skeletal: No lower extremity edema bilaterally Neurologic: No focal deficits Results Result Diagram: 04/15/17 0424 04/15/17 0424 Results 24 hrs Laboratory Tests Test 04/15/17 04:24 White Blood Count 4.4 L Red Blood Count 3.90 L Hemoglobin 11.0 L Hematocrit 33.7 L Mean Corpuscular Volume 86.4 Mean Corpuscular Hemoglobin 28.2 L Mean Corpuscular Hemoglobin Concent 32.6 Red Cell Distribution Width 15.3 H Platelet Count 191 Mean Platelet Volume 11.6 H Neutrophils % 47.7 Lymphocytes % 41.1 Monocytes % 8.9 Eosinophils % 1.1 Basophils % 0.7 Nucleated Red Blood Cells % 0.0 Neutrophils # (Manual) 2 Lymphocytes # 1.8 Monocytes # 0.4 Eosinophils # 0.1 Basophils # 0.0 Nucleated Red Blood Cells # 0.0 Sodium Level 142 Potassium Level 4.2 Chloride Level 104 Carbon Dioxide Level 28 Anion Gap 14 Blood Urea Nitrogen 7 Creatinine 0.60 Glucose Level 84 Calcium Level 8.4 Medications Medications Current Medications Ondansetron HCl (Zofran Inj) 4 mg Q6H PRN IV NAUSEA AND/OR VOMITING Last administered on 04/13/17 18:46; Admin Dose 4 MG; Start 04/11/17 at 15:30 Acetaminophen (Tylenol Tab) 650 mg Q6H PRN PO PAIN LEVEL 1-3 OR FEVER; Start at 15:30 Docusate Sodium (Colace) 100 mg Q12H PRN PO CONSTIPATION; Start 04/11/17 at 15: 30 Magnesium Hydroxide (Milk Of Mag) 30 ml DAILY PRN PO CONSTIPATION; Start at 15:30 Sodium Biphosphate/ Sodium Phosphate (Fleet Enema) 133 ml DAILY PRN [place] CONSTIPATION; Start 04/11/17 at 15:30 Lorazepam (Ativan) 0.5 mg Q6H PRN IV ANXIETY Last administered on 04/15/17 10: 07; Admin Dose 0.5 MG; Start 04/11/17 at 15:30 Hydralazine HCl (Apresoline) 10 mg Q6H PRN IV ELEVATED BLOOD PRESSURE; Start at 15:30 Nitroglycerin (Nitroglycerin (Sl Tab) 0.4 Mg) 1 tab Q5M PRN SL ANGINA; Start at 15:30 Famotidine (Pepcid) 20 mg DAILY PO Last administered on 04/15/17 08:27; Admin Dose 20 MG; Start 04/13/17 at 13:00 Hydromorphone HCl (Dilaudid) 0.5 mg Q3H PRN IV PAIN Last administered on 08:28; Admin Dose 0.5 MG; Start 04/14/17 at 12:30 Ketorolac Tromethamine 15 mg 15 mg Q6H PRN IV PAIN Last administered on 10:12; Admin Dose 15 MG; Start 04/14/17 at 12:00; Stop 04/17/17 at 11:59 Sodium Chloride 1,000 ml @ 75 mls/hr [id number] IV Last administered on 10:58; Admin Dose 75 MLS/HR; Start 04/14/17 at 10:30 Ceftriaxone Sodium (Rocephin) 50 ml @ 100 mls/hr Q24H IVPB ; Start 04/15/17 at 11:00; Status LUCIANO MOCK Apr 15, 2017 11:08
--- NOTE | 2017-04-15 12:38 | PN ---
Date/Time of Note Date/Time of Note DATE: 04/15/17 TIME: 12:36 Assessment/Plan VTE Prophylaxis VTE Prophylaxis Intervention: SCD's Lines/Catheters [facility] (from [facility] Peripheral IV Urinary Cath still in place: No Assessment/Plan Assessment/Plan [facility] Assessment/Plan Assessment/Plan Assessment * Right upper quadrant pain/abnormal liver function tests with hepatocellular pattern * Rule out acute hepatitis B, positive HBc total antibody, HBc IgM pending * Cholelithiasis, no evidence of choledocholithiasis * Drug abuse * History of hypertension * Opiate seeking behavior * Anxiety Plan * Awaiting HBc IgM and HBs Ag to confirm acute hepatitis B * HIDA scan to rule out cholecystitis * Clear liquid diet * Avoid opiates if at all possible * Further orders will depend on clinical course Exam Subjective Subjective 24 Hr Interval Summary Free Text/Dictation * Course reviewed with RN * Patient seen and examined * Very lethargic * Complaining of epigastric and right upper quadrant abdominal pain and nausea * Tolerating clears * Hepatitis B surface antigen and hepatitis B core IgM antibody still pending Exam Constitutional: alert, frail, jaundiced, lethargic (received Ativan) Neck: non-tender, supple Respiratory: clear to auscultation, normal air movement Cardiovascular: nl pulses, regular rate and rhythm Gastrointestinal: soft, moderately tender epigastrium and right upper quadrant area No rebound or guarding Extremities: normal pulses Neurological: nl mental status, nl speech Skin: nl turgor, No rash or lesions Exam/Review of Systems Vital Signs Vitals Vital Signs Date Time Temp Pulse Resp B/P Pulse Ox O2 Delivery O2 Flow Rate FiO2 04/15/17 08:30 98.4 90 18 154/88 99 Intake and Output 04/14/17 04/14/17 04/15/17 14:59 22:59 06:59 Intake Total 100 ml 1100 ml 720 ml Balance 100 ml 1100 ml 720 ml Results Result Diagram: 04/15/17 0424 04/15/17 0424 Results 24 hrs Laboratory Tests Test 04/15/17 04:24 White Blood Count 4.4 L Red Blood Count 3.90 L Hemoglobin 11.0 L Hematocrit 33.7 L Mean Corpuscular Volume 86.4 Mean Corpuscular Hemoglobin 28.2 L Mean Corpuscular Hemoglobin Concent 32.6 Red Cell Distribution Width 15.3 H Platelet Count 191 Mean Platelet Volume 11.6 H Neutrophils % 47.7 Lymphocytes % 41.1 Monocytes % 8.9 Eosinophils % 1.1 Basophils % 0.7 Nucleated Red Blood Cells % 0.0 Neutrophils # (Manual) 2 Lymphocytes # 1.8 Monocytes # 0.4 Eosinophils # 0.1 Basophils # 0.0 Nucleated Red Blood Cells # 0.0 Sodium Level 142 Potassium Level 4.2 Chloride Level 104 Carbon Dioxide Level 28 Anion Gap 14 Blood Urea Nitrogen 7 Creatinine 0.60 Glucose Level 84 Calcium Level 8.4 Medications Medications Current Medications Ondansetron HCl (Zofran Inj) 4 mg Q6H PRN IV NAUSEA AND/OR VOMITING Last administered on 04/13/17 18:46; Admin Dose 4 MG; Start 04/11/17 at 15:30 Acetaminophen (Tylenol Tab) 650 mg Q6H PRN PO PAIN LEVEL 1-3 OR FEVER; Start at 15:30 Docusate Sodium (Colace) 100 mg Q12H PRN PO CONSTIPATION; Start 04/11/17 at 15: 30 Magnesium Hydroxide (Milk Of Mag) 30 ml DAILY PRN PO CONSTIPATION; Start at 15:30 Sodium Biphosphate/ Sodium Phosphate (Fleet Enema) 133 ml DAILY PRN [place] CONSTIPATION; Start 04/11/17 at 15:30 Lorazepam (Ativan) 0.5 mg Q6H PRN IV ANXIETY Last administered on 04/15/17 10: 07; Admin Dose 0.5 MG; Start 04/11/17 at 15:30 Hydralazine HCl (Apresoline) 10 mg Q6H PRN IV ELEVATED BLOOD PRESSURE; Start at 15:30 Nitroglycerin (Nitroglycerin (Sl Tab) 0.4 Mg) 1 tab Q5M PRN SL ANGINA; Start at 15:30 Famotidine (Pepcid) 20 mg DAILY PO Last administered on 04/15/17 08:27; Admin Dose 20 MG; Start 04/13/17 at 13:00 Hydromorphone HCl (Dilaudid) 0.5 mg Q3H PRN IV PAIN Last administered on 08:28; Admin Dose 0.5 MG; Start 04/14/17 at 12:30 Ketorolac Tromethamine 15 mg 15 mg Q6H PRN IV PAIN Last administered on 10:12; Admin Dose 15 MG; Start 04/14/17 at 12:00; Stop 04/17/17 at 11:59 Sodium Chloride 1,000 ml @ 75 mls/hr [id number] IV Last administered on 10:58; Admin Dose 75 MLS/HR; Start 04/14/17 at 10:30 Ceftriaxone Sodium (Rocephin) 50 ml @ 100 mls/hr Q24H IVPB ; Start 04/15/17 at 12:30 DEEPAK SELLERS MD Apr 15, 2017 12:37
[2017-04-15] MEDS: CEFTRIAXONE 2 GM/50 ML (PMX) 50 ML IVPB SCH (12:43)
--- NOTE | 2017-04-15 12:48 | PN ---
Date/Time of Note Date/Time of Note DATE: 04/15/17 TIME: 12:47 Assessment/Plan Lines/Catheters IV Catheter Type (from Nrsg): Peripheral IV Liriano in Place (from Nrsg): No Assessment/Plan Assessment/Plan [facility] Progress Note Date of Service: 04/15/2017 Place of service: [facility] fourth floor Today's Assessment & Plan: Overall stable and somewhat clinically improved, but with persistently abnormal AST and ALT but improved T. bili. Concentric gallbladder noted on the MRCP. No indication for acute surgical intervention until hepatitis has improved. Lap charles afterwards during this admission. Discussed with patient and answered questions. With above assessment, I've recommended the followin. Continue current management 2. Adequate pain control (patient likely has low threshold for pain and will require larger than normal doses) 3. Multidisciplinary discussion 4. If no surgery or endoscopic intervention planned, the patient may be able to take orals until procedure is planned 5. Likely will need laparoscopic cholecystectomy during this admission 6. Monitor LFTs Thank you very much for having me involved in the care of this very pleasant patient and wonderful family. If you have any questions, please feel free to contact me at [phone]. Nature of presenting problem: High severity Please note that, given the extensive number of diagnoses or management options , the extensive amount and/or complexity of data needed to be reviewed ( including more than 50 pages of outside records and outside ultrasound, chest x- ray and CT scan of the abdomen and pelvis), and high risk of complications and/ or morbidity or mortality, this qualifies as high complexity type of decision- making. Disclaimer: Inadvertent spelling and grammatical errors are likely due to EHR/ dictation software use and do not reflect on the quality of delivered patient care. Also, please note that the electronic time recorded on this node does not necessarily reflect the actual time of the visit. Updated clinical summary: A very-pleasant but unfortunate 46-year-old lady with multiple comorbidities, admitted with active hepatitis B infection and possible acute cholecystitis. Comorbidities: 1. Active hepatitis B infection 2. Gallbladder wall thickening in the setting of #1 above, possibly indicating acute cholecystitis 3. Intravenous drug abuse (drug screen positive for opiates, amphetamines at [facility] March 2017) 4. Hypertension 5. Urinary tract infection 6. 4 Subjective: No major events or complaints; still with abd pain and under semi-adequate control with medications; reports feeling the same than the last few days and still fairly emotional during the discussions; no n/v/d; no sob or cp; + flatus ; - BM; - activity Objective: Vitals: See below I's & O's: See below Exam: GENERAL: On exam, the patient was lying in bed and appeared to be comfortable and in no acute distress. Today she was more emotional during the conversation then yesterday. ABDOMEN: Soft, minimally to no tenderness to palpation in the right upper quadrant and no tenderness in the rest of the abdominal cavity, and nondistended. There are no peritoneal signs or guarding. SKIN: Skin appears to be pink and feels warm to touch. NEUROLOGIC: Patient is awake, alert, and follows commands appropriately. Labs: See below Exam/Review of Systems Vital Signs Vitals Vital Signs Date Time Temp Pulse Resp B/P Pulse Ox O2 Delivery O2 Flow Rate FiO2 04/15/17 08:30 98.4 90 18 154/88 99 Intake and Output 04/14/17 04/14/17 04/15/17 15:00 23:00 07:00 Intake Total 100 ml 1100 ml 720 ml Balance 100 ml 1100 ml 720 ml Results Result Diagram: 04/15/17 0424 04/15/17 0424 MILI MORELAND M.D. Apr 15, 2017 12:48
--- NOTE | 2017-04-15 13:16 | CONS ---
Date/Time of Note Date/Time of Note DATE: 04/15/17 TIME: 13:15 Assessment/Plan Assessment/Plan Chief Complaint/Hosp Course SUBJECTIVE DATA: No events overnight per report. The patient is sleeping, looks comfortable, afebrile. ANTIMICROBIAL: Zosyn. PHYSICAL EXAMINATION: GENERAL: This is a well-developed, well-nourished, middle-aged woman who is in no distress. HEENT: Head atraumatic, normocephalic. Sclerae anicteric. Buccal mucosa dry. NECK: Supple. CHEST: Rise symmetrical. Breath sounds diminished at the bases. ABDOMEN: Soft, bowel sounds hypoactive. EXTREMITIES: Without cyanosis. ASSESSMENT: 1. Right upper quadrant abdominal pain with abnormal liver function tests, questionable acute hepatitis. 2. Cholelithiasis without evidence of choledocholithiasis. 3. Hypertension. 4. Drug abuse. 5. Opiate and drug-seeking behavior. PLAN: 1. Patient remains stable, continue abx, f/u surgical/GI rec-s [facility] staff Problems: Consultation Date/Type/Reason Admit Date/Time Apr 11, 2017 at 14:15 Initial Consult Date 04/12/17 Type of Consultation: ID Referring Provider: LUCIANO MAIER Exam/Review of Systems Vital Signs Vitals Vital Signs Date Time Temp Pulse Resp B/P Pulse Ox O2 Delivery O2 Flow Rate FiO2 04/15/17 08:30 98.4 90 18 154/88 99 Intake and Output 04/14/17 04/14/17 04/15/17 15:00 23:00 07:00 Intake Total 100 ml 1100 ml 720 ml Balance 100 ml 1100 ml 720 ml Results Result Diagram: 04/15/17 0424 04/15/17 0424 Results 24 hrs Laboratory Tests Test 04/15/17 04:24 White Blood Count 4.4 L Red Blood Count 3.90 L Hemoglobin 11.0 L Hematocrit 33.7 L Mean Corpuscular Volume 86.4 Mean Corpuscular Hemoglobin 28.2 L Mean Corpuscular Hemoglobin Concent 32.6 Red Cell Distribution Width 15.3 H Platelet Count 191 Mean Platelet Volume 11.6 H Neutrophils % 47.7 Lymphocytes % 41.1 Monocytes % 8.9 Eosinophils % 1.1 Basophils % 0.7 Nucleated Red Blood Cells % 0.0 Neutrophils # (Manual) 2 Lymphocytes # 1.8 Monocytes # 0.4 Eosinophils # 0.1 Basophils # 0.0 Nucleated Red Blood Cells # 0.0 Sodium Level 142 Potassium Level 4.2 Chloride Level 104 Carbon Dioxide Level 28 Anion Gap 14 Blood Urea Nitrogen 7 Creatinine 0.60 Glucose Level 84 Calcium Level 8.4 Medications Medications Current Medications Ondansetron HCl (Zofran Inj) 4 mg Q6H PRN IV NAUSEA AND/OR VOMITING Last administered on 04/13/17 18:46; Admin Dose 4 MG; Start 04/11/17 at 15:30 Acetaminophen (Tylenol Tab) 650 mg Q6H PRN PO PAIN LEVEL 1-3 OR FEVER; Start at 15:30 Docusate Sodium (Colace) 100 mg Q12H PRN PO CONSTIPATION; Start 04/11/17 at 15: 30 Magnesium Hydroxide (Milk Of Mag) 30 ml DAILY PRN PO CONSTIPATION; Start at 15:30 Sodium Biphosphate/ Sodium Phosphate (Fleet Enema) 133 ml DAILY PRN [place] CONSTIPATION; Start 04/11/17 at 15:30 Lorazepam (Ativan) 0.5 mg Q6H PRN IV ANXIETY Last administered on 04/15/17 10: 07; Admin Dose 0.5 MG; Start 04/11/17 at 15:30 Hydralazine HCl (Apresoline) 10 mg Q6H PRN IV ELEVATED BLOOD PRESSURE; Start at 15:30 Nitroglycerin (Nitroglycerin (Sl Tab) 0.4 Mg) 1 tab Q5M PRN SL ANGINA; Start at 15:30 Famotidine (Pepcid) 20 mg DAILY PO Last administered on 04/15/17 08:27; Admin Dose 20 MG; Start 04/13/17 at 13:00 Hydromorphone HCl (Dilaudid) 0.5 mg Q3H PRN IV PAIN Last administered on 12:42; Admin Dose 0.5 MG; Start 04/14/17 at 12:30 Ketorolac Tromethamine 15 mg 15 mg Q6H PRN IV PAIN Last administered on 10:12; Admin Dose 15 MG; Start 04/14/17 at 12:00; Stop 04/17/17 at 11:59 Sodium Chloride 1,000 ml @ 75 mls/hr [id number] IV Last administered on 10:58; Admin Dose 75 MLS/HR; Start 04/14/17 at 10:30 Ceftriaxone Sodium (Rocephin) 50 ml @ 100 mls/hr Q24H IVPB Last administered on 04/15/17 12:43; Admin Dose 100 MLS/HR; Start 04/15/17 at 12:30 HORTENSIA RICO NP Apr 15, 2017 13:16
[2017-04-15 15:30] VITALS: BP 155/99; RESP 18
[2017-04-15] MEDS: SOD CHLORIDE 0.45% 1,000 ML IV SCH (16:11)
[2017-04-15 19:10] VITALS: BP 156/92; RESP 20
[2017-04-16] MEDS: HYDROmorphONE 1 MG/ML SYG IV PRN ×5 (00:52→17:51)
[2017-04-16] MEDS: ONDANSETRON 4 MG INJ IV PRN ×2 (00:58→08:13)
[2017-04-16 02:23] VITALS: BP 165/97; PULSE 75; RESP 17
[2017-04-16] MEDS: SOD CHLORIDE 0.45% 1,000 ML IV SCH ×2 (02:30→04:49)
[2017-04-16 05:38] LABS: BASOPHILS % 0.9 % (0.0-2.0); EOSINOPHILS % 0.9 % (0.0-7.0); HEMOGLOBIN 10.7 g/dl (12.0-16.0); LYMPHOCYTES # 2.1 10^3/ul (0.8-2.9); MEAN CORPUSCULAR HEMOGLOBIN 28.5 pg (29.0-33.0); MEAN CORPUSCULAR HGB CONC 33.4 g/dl (32.0-37.0); MEAN CORPUSCULAR VOLUME 85.3 fl (82.0-101.0); MEAN PLATELET VOLUME 11.6 fl (7.4-10.4); MONOCYTE # 0.4 10^3/ul (0.3-0.9); MONOCYTES % 9.7 % (0.0-11.0); NEUTROPHILS % 40.3 % (39.0-77.0); PLATELET COUNT 198 10^3/UL (140-415); RED BLOOD COUNT 3.75 10^6/ul (4.20-5.40); RED CELL DISTRIBUTION WIDTH 15.4 % (11.5-14.5); WHITE BLOOD COUNT 4.4 10^3/ul (4.8-10.8)
[2017-04-16 06:07] LABS: ALBUMIN 2.4 g/dl (3.3-4.9); BILIRUBIN,DIRECT 3.4 mg/dl (0.00-0.20); BILIRUBIN,TOTAL 4.4 mg/dl (0.2-1.3); TOTAL PROTEIN 5.5 g/dl (6.1-8.1)
[2017-04-16 06:08] LABS: POSITIVE DIFF @See below
[2017-04-16 06:19] LABS: CALCIUM 8.4 mg/dl (8.4-10.2); CREATININE 0.59 mg/dl (0.44-1.00); POTASSIUM 3.6 mmol/L (3.5-5.1)
[2017-04-16 07:33] VITALS: BP 138/83; RESP 20
[2017-04-16] MEDS: FAMOTIDINE 20 MG TAB PO SCH (08:14)
[2017-04-16] MEDS: LORAZEPAM 2 MG INJ IV PRN (10:07)
[2017-04-16] MEDS: CEFTRIAXONE 2 GM/50 ML (PMX) 50 ML IVPB SCH (12:03)
--- NOTE | 2017-04-16 14:10 | CONS ---
Date/Time of Note Date/Time of Note DATE: 04/16/17 TIME: 14:09 Assessment/Plan Assessment/Plan Chief Complaint/Hosp Course No acute changes. Patient is awake ambulating in the room, no fevers ANTIMICROBIAL: Zosyn. PHYSICAL EXAMINATION: GENERAL: This is a well-developed, well-nourished, middle-aged woman who is in no distress. HEENT: Head atraumatic, normocephalic. Sclerae anicteric. Buccal mucosa dry. NECK: Supple. CHEST: Rise symmetrical. Breath sounds diminished at the bases. ABDOMEN: Soft, bowel sounds hypoactive. EXTREMITIES: Without cyanosis. ASSESSMENT: 1. Right upper quadrant abdominal pain with abnormal liver function tests, questionable acute hepatitis. 2. Cholelithiasis without evidence of choledocholithiasis. 3. Hypertension. 4. Drug abuse. 5. Opiate and drug-seeking behavior. PLAN: Patient remains stable, we are going to change antibiotics to Levaquin and Flagyl, await for final workup, f/u surgical/GI rec-s [facility] staff Problems: Consultation Date/Type/Reason Admit Date/Time Apr 11, 2017 at 14:15 Initial Consult Date 04/12/17 Type of Consultation: ID Referring Provider: LUCIANO MAIER Exam/Review of Systems Vital Signs Vitals Vital Signs Date Time Temp Pulse Resp B/P Pulse Ox O2 Delivery O2 Flow Rate FiO2 04/16/17 07:33 98.2 90 20 138/83 98 04/16/17 02:23 Room Air Intake and Output 04/15/17 04/15/17 04/16/17 15:00 23:00 07:00 Intake Total 50 ml 1650 ml 805 ml Balance 50 ml 1650 ml 805 ml Results Result Diagram: 04/16/17 0436 04/16/17 0436 Results 24 hrs Laboratory Tests Test 04/16/17 04:36 White Blood Count 4.4 L Red Blood Count 3.75 L Hemoglobin 10.7 L Hematocrit 32.0 L Mean Corpuscular Volume 85.3 Mean Corpuscular Hemoglobin 28.5 L Mean Corpuscular Hemoglobin Concent 33.4 Red Cell Distribution Width 15.4 H Platelet Count 198 Mean Platelet Volume 11.6 H Neutrophils % 40.3 Lymphocytes % 48.0 Monocytes % 9.7 Eosinophils % 0.9 Basophils % 0.9 Nucleated Red Blood Cells % 0.0 Neutrophils # (Manual) 2 Lymphocytes # 2.1 Monocytes # 0.4 Eosinophils # 0.0 Basophils # 0.0 Nucleated Red Blood Cells # 0.0 Sodium Level 136 Potassium Level 3.6 Chloride Level 103 Carbon Dioxide Level 27 Anion Gap 10 Blood Urea Nitrogen 5 L Creatinine 0.59 Glucose Level 68 #L Calcium Level 8.4 Total Bilirubin 4.4 H Direct Bilirubin 3.40 H Indirect Bilirubin 1.0 Aspartate Amino Transf (AST/SGOT) 3306 H Alanine Aminotransferase (ALT/SGPT) 2059 H Alkaline Phosphatase 213 H Total Protein 5.5 L Albumin 2.4 L Medications Medications Current Medications Ondansetron HCl (Zofran Inj) 4 mg Q6H PRN IV NAUSEA AND/OR VOMITING Last administered on 04/16/17 08:13; Admin Dose 4 MG; Start 04/11/17 at 15:30 Acetaminophen (Tylenol Tab) 650 mg Q6H PRN PO PAIN LEVEL 1-3 OR FEVER; Start at 15:30 Docusate Sodium (Colace) 100 mg Q12H PRN PO CONSTIPATION; Start 04/11/17 at 15: 30 Magnesium Hydroxide (Milk Of Mag) 30 ml DAILY PRN PO CONSTIPATION; Start at 15:30 Sodium Biphosphate/ Sodium Phosphate (Fleet Enema) 133 ml DAILY PRN [place] CONSTIPATION; Start 04/11/17 at 15:30 Lorazepam (Ativan) 0.5 mg Q6H PRN IV ANXIETY Last administered on 04/16/17 10: 07; Admin Dose 0.5 MG; Start 04/11/17 at 15:30 Hydralazine HCl (Apresoline) 10 mg Q6H PRN IV ELEVATED BLOOD PRESSURE; Start at 15:30 Nitroglycerin (Nitroglycerin (Sl Tab) 0.4 Mg) 1 tab Q5M PRN SL ANGINA; Start at 15:30 Famotidine (Pepcid) 20 mg DAILY PO Last administered on 04/16/17 08:14; Admin Dose 20 MG; Start 04/13/17 at 13:00 Hydromorphone HCl (Dilaudid) 0.5 mg Q3H PRN IV PAIN Last administered on 11:45; Admin Dose 0.5 MG; Start 04/14/17 at 12:30 Ketorolac Tromethamine 15 mg 15 mg Q6H PRN IV PAIN Last administered on 10:12; Admin Dose 15 MG; Start 04/14/17 at 12:00; Stop 04/17/17 at 11:59 Sodium Chloride 1,000 ml @ 75 mls/hr [id number] IV Last administered on 04:49; Admin Dose 75 MLS/HR; Start 04/14/17 at 10:30 Ceftriaxone Sodium (Rocephin) 50 ml @ 100 mls/hr Q24H IVPB Last administered on 04/16/17 12:03; Admin Dose 100 MLS/HR; Start 04/15/17 at 12:30 HORTENSIA RICO NP Apr 16, 2017 14:10
[2017-04-16 14:57] VITALS: BP 148/84; RESP 20
[2017-04-16] MEDS: metroNIDAZOLE 500 MG TAB PO SCH ×2 (15:00→21:15)
--- NOTE | 2017-04-16 15:31 | PN ---
Date/Time of Note Date/Time of Note DATE: 04/16/17 TIME: 15:30 Assessment/Plan VTE Prophylaxis VTE Prophylaxis Intervention: SCD's Lines/Catheters [facility] Peripheral IV Urinary Cath still in place: No Assessment/Plan Assessment/Plan 46-year-old female presented with abdominal pain and transaminitis of unclear etiology. Also cholecystitis on imaging. GI, gen surg already on consult, etiology unclear. New hepatitis B v other PLAN cont to await remaining hep b serologies defer lap charles pending hep b results await HIDA results abx as per ID re crying, pt not endorsing HI/SI. defer inpatient psychiatric eval at this time Subjective 24 Hr Interval Summary Free Text/Dictation Pt tearful again this morning. However when explicitly asked, denies that she is considering hurting herself or anyone else. Exam/Review of Systems Vital Signs Vitals Vital Signs Date Time Temp Pulse Resp B/P Pulse Ox O2 Delivery O2 Flow Rate FiO2 04/16/17 14:57 97.9 88 20 148/84 100 04/16/17 02:23 Room Air Intake and Output 04/15/17 04/15/17 04/16/17 14:59 22:59 06:59 Intake Total 50 ml 1650 ml 805 ml Balance 50 ml 1650 ml 805 ml Exam nad, sitting up in bed, tearful resp nonlabored no jaundice responds to questions appropriately no edema hepatitis B serologies still in process Results Result Diagram: 04/16/17 0436 04/16/17 0436 Results 24 hrs Laboratory Tests Test 04/16/17 04:36 White Blood Count 4.4 L Red Blood Count 3.75 L Hemoglobin 10.7 L Hematocrit 32.0 L Mean Corpuscular Volume 85.3 Mean Corpuscular Hemoglobin 28.5 L Mean Corpuscular Hemoglobin Concent 33.4 Red Cell Distribution Width 15.4 H Platelet Count 198 Mean Platelet Volume 11.6 H Neutrophils % 40.3 Lymphocytes % 48.0 Monocytes % 9.7 Eosinophils % 0.9 Basophils % 0.9 Nucleated Red Blood Cells % 0.0 Neutrophils # (Manual) 2 Lymphocytes # 2.1 Monocytes # 0.4 Eosinophils # 0.0 Basophils # 0.0 Nucleated Red Blood Cells # 0.0 Sodium Level 136 Potassium Level 3.6 Chloride Level 103 Carbon Dioxide Level 27 Anion Gap 10 Blood Urea Nitrogen 5 L Creatinine 0.59 Glucose Level 68 #L Calcium Level 8.4 Total Bilirubin 4.4 H Direct Bilirubin 3.40 H Indirect Bilirubin 1.0 Aspartate Amino Transf (AST/SGOT) 3306 H Alanine Aminotransferase (ALT/SGPT) 2059 H Alkaline Phosphatase 213 H Total Protein 5.5 L Albumin 2.4 L Medications Medications Current Medications Ondansetron HCl (Zofran Inj) 4 mg Q6H PRN IV NAUSEA AND/OR VOMITING Last administered on 04/16/17 08:13; Admin Dose 4 MG; Start 04/11/17 at 15:30 Acetaminophen (Tylenol Tab) 650 mg Q6H PRN PO PAIN LEVEL 1-3 OR FEVER; Start at 15:30 Docusate Sodium (Colace) 100 mg Q12H PRN PO CONSTIPATION; Start 04/11/17 at 15: 30 Magnesium Hydroxide (Milk Of Mag) 30 ml DAILY PRN PO CONSTIPATION; Start at 15:30 Sodium Biphosphate/ Sodium Phosphate (Fleet Enema) 133 ml DAILY PRN OR CONSTIPATION; Start 04/11/17 at 15:30 Lorazepam (Ativan) 0.5 mg Q6H PRN IV ANXIETY Last administered on 04/16/17 10: 07; Admin Dose 0.5 MG; Start 04/11/17 at 15:30 Hydralazine HCl (Apresoline) 10 mg Q6H PRN IV ELEVATED BLOOD PRESSURE; Start at 15:30 Nitroglycerin (Nitroglycerin (Sl Tab) 0.4 Mg) 1 tab Q5M PRN SL ANGINA; Start at 15:30 Famotidine (Pepcid) 20 mg DAILY PO Last administered on 04/16/17 08:14; Admin Dose 20 MG; Start 04/13/17 at 13:00 Hydromorphone HCl (Dilaudid) 0.5 mg Q3H PRN IV PAIN Last administered on 11:45; Admin Dose 0.5 MG; Start 04/14/17 at 12:30 Ketorolac Tromethamine 15 mg 15 mg Q6H PRN IV PAIN Last administered on 10:12; Admin Dose 15 MG; Start 04/14/17 at 12:00; Stop 04/17/17 at 11:59 Sodium Chloride (1/2 NS) 1,000 ml @ 75 mls/hr [id number] IV Last administered on 04/16/17t 04:49; Admin Dose 75 MLS/HR; Start 04/14/17 at 10:30 Levofloxacin (Levaquin) 500 mg DAILY@06 PO ; Start 04/17/17 at 06:00 Metronidazole (Flagyl) 500 mg Q8 PO ; Start 04/16/17 at 15:00 EZRA WATTS MD Apr 16, 2017 15:31
--- NOTE | 2017-04-16 16:13 | PN ---
Date/Time of Note Date/Time of Note DATE: 04/16/17 TIME: 16:11 Assessment/Plan Lines/Catheters IV Catheter Type (from Nrsg): Peripheral IV Liriano in Place (from Nrsg): No Assessment/Plan Assessment/Plan [facility] Progress Note Date of Service: 04/16/2017 Place of service: [facility] fourth floor Today's Assessment & Plan: Overall stable and somewhat clinically improved, but with persistently abnormal AST and ALT but improved T. bili. Concentric gallbladder noted on the MRCP. No indication for acute surgical intervention until hepatitis has improved. Lap charles afterwards during this admission. Discussed with team (patient not in room ) and answered questions. With above assessment, I've recommended the followin. Continue current management 2. Adequate pain control (patient likely has low threshold for pain and will require larger than normal doses) 3. Multidisciplinary discussion 4. If no surgery or endoscopic intervention planned, the patient may be able to take orals until procedure is planned 5. Likely will need laparoscopic cholecystectomy during this admission 6. Monitor LFTs Thank you very much for having me involved in the care of this very pleasant patient and wonderful family. If you have any questions, please feel free to contact me at [phone]. Nature of presenting problem: High severity Please note that, given the extensive number of diagnoses or management options , the extensive amount and/or complexity of data needed to be reviewed ( including more than 50 pages of outside records and outside ultrasound, chest x- ray and CT scan of the abdomen and pelvis), and high risk of complications and/ or morbidity or mortality, this qualifies as high complexity type of decision- making. Disclaimer: Inadvertent spelling and grammatical errors are likely due to EHR/ dictation software use and do not reflect on the quality of delivered patient care. Also, please note that the electronic time recorded on this node does not necessarily reflect the actual time of the visit. Updated clinical summary: A very-pleasant but unfortunate 46-year-old lady with multiple comorbidities, admitted with active hepatitis B infection and possible acute cholecystitis. Comorbidities: 1. Active hepatitis B infection 2. Gallbladder wall thickening in the setting of #1 above, possibly indicating acute cholecystitis 3. Intravenous drug abuse (drug screen positive for opiates, amphetamines at [facility] March 2017) 4. Hypertension 5. Urinary tract infection 6. 4 Subjective: No major reported events or complaints; still with reported abd pain and under semi-adequate control with medications; reportedly feeling the same than the last few days and still fairly emotional during the discussions; no n/v/d; no sob or cp; + flatus; - BM; - activity Objective: Vitals: See below I's & O's: See below Exam: Patient not in room Labs: See below Exam/Review of Systems Vital Signs Vitals Vital Signs Date Time Temp Pulse Resp B/P Pulse Ox O2 Delivery O2 Flow Rate FiO2 04/16/17 14:57 97.9 88 20 148/84 100 04/16/17 02:23 Room Air Intake and Output 04/15/17 04/15/17 04/16/17 15:00 23:00 07:00 Intake Total 50 ml 1650 ml 805 ml Balance 50 ml 1650 ml 805 ml Results Result Diagram: 04/16/17 0436 04/16/17 0436 MILI MORELAND M.D. Apr 16, 2017 16:13
[2017-04-16 19:05] VITALS: BP 179/99; RESP 20
[2017-04-16] MEDS: KETOROLAC 30 MG INJ IV PRN (19:46)
--- NOTE | 2017-04-16 20:40 | RADRPT ---
PROCEDURE: HIDA scan CLINICAL INDICATION: 46 -year-old patient with abdominal pain. TECHNIQUE: Following the intravenous injection of 7.8 mCi of Tc-99m mebrofenin, multiple images of the abdomen were obtained up to 90 minutes post injection. COMPARISON: No prior studies. FINDINGS: The liver is promptly visualized, demonstrates homogeneous distribution of radionuclide. Multiple images of the abdomen obtained up to 90 minutes post injection failed to demonstrate biliar y clearance of activity. IMPRESSION: 1. No biliary clearance of uptake up to 90 minutes post injection. 2. Persistent liver activity. RPTAT: QQ .Elizabet Abebe MD, Date Time Electronically viewed and signed by .Elizabet Abebe MD, on 04/16/2017 20:40 .L/
[2017-04-16] MEDS: ALPRAZOLAM 0.25 MG TAB PO PRN (21:20)
[2017-04-16 23:20] VITALS: BP 173/97; PULSE 68; RESP 20
[2017-04-16] MEDS ORDERED: hydrALAzine 20 MG INJ IV PRN (23:30)
[2017-04-16 23:59] VITALS: BP 155/86; PULSE 69; RESP 20
[2017-04-17 02:15] VITALS: BP 147/83; RESP 18
[2017-04-17] MEDS: HYDROmorphONE 1 MG/ML SYG IV PRN ×6 (04:00→23:07)
[2017-04-17 05:42] LABS: BASOPHIL # 0.1 10^3/ul (0.0-0.1); BASOPHILS % 1.2 % (0.0-2.0); EOSINOPHILS # 0.1 10^3/ul (0.0-0.5); EOSINOPHILS % 1.7 % (0.0-7.0); HEMATOCRIT 32.6 % (37.0-47.0); HEMOGLOBIN 10.7 g/dl (12.0-16.0); LYMPHOCYTES # 1.9 10^3/ul (0.8-2.9); LYMPHOCYTES % 45.1 % (15.0-51.0); MEAN CORPUSCULAR HEMOGLOBIN 27.9 pg (29.0-33.0); MEAN CORPUSCULAR HGB CONC 32.8 g/dl (32.0-37.0); MEAN CORPUSCULAR VOLUME 84.9 fl (82.0-101.0); MEAN PLATELET VOLUME 11.4 fl (7.4-10.4); MONOCYTE # 0.4 10^3/ul (0.3-0.9); MONOCYTES % 10.4 % (0.0-11.0); NEUTROPHILS % 41.4 % (39.0-77.0); PLATELET COUNT 237 10^3/UL (140-415); RED BLOOD COUNT 3.84 10^6/ul (4.20-5.40); WHITE BLOOD COUNT 4.1 10^3/ul (4.8-10.8)
[2017-04-17] MEDS: LEVOFLOXACIN 500 MG TAB PO SCH (06:03)
[2017-04-17] MEDS: metroNIDAZOLE 500 MG TAB PO SCH ×3 (06:03→21:16)
[2017-04-17] MEDS: KETOROLAC 30 MG INJ IV PRN (06:07)
[2017-04-17 06:19] LABS: ALBUMIN 2.6 g/dl (3.3-4.9); ALBUMIN/GLOBULIN RATIO 0.76; BILIRUBIN,DIRECT 4.1 mg/dl (0.00-0.20); BILIRUBIN,INDIRECT 1.1 mg/dl (0-1.1); BILIRUBIN,TOTAL 5.2 mg/dl (0.2-1.3); CALCIUM 8.8 mg/dl (8.4-10.2); CREATININE 0.54 mg/dl (0.44-1.00); POTASSIUM 3.7 mmol/L (3.5-5.1)
[2017-04-17 06:22] LABS: POSITIVE DIFF @See below
[2017-04-17 07:29] VITALS: BP 149/82; RESP 18
[2017-04-17] MEDS: ONDANSETRON 4 MG INJ IV PRN ×3 (10:25→16:40)
[2017-04-17] MEDS: ALPRAZOLAM 0.25 MG TAB PO PRN ×2 (10:26→19:00)
[2017-04-17 14:30] VITALS: BP 148/84; RESP 17
[2017-04-17 15:08] LABS: HEPATITIS B DELTA ANTIBODY NEGATIVE
--- NOTE | 2017-04-17 15:25 | CONS ---
Date/Time of Note Date/Time of Note DATE: 04/17/17 TIME: 15:23 Assessment/Plan Assessment/Plan Chief Complaint/Hosp Course No acute changes. Patient is awake, c/o pain, no fevers, nad ANTIMICROBIAL: Levaquin, Flagyl PHYSICAL EXAMINATION: GENERAL: This is a well-developed, well-nourished, middle-aged woman who is in no distress. HEENT: Head atraumatic, normocephalic. Sclerae anicteric. Buccal mucosa dry. NECK: Supple. CHEST: Rise symmetrical. Breath sounds diminished at the bases. ABDOMEN: Soft, bowel sounds hypoactive. EXTREMITIES: Without cyanosis. ASSESSMENT: 1. Right upper quadrant abdominal pain with abnormal liver function tests, questionable acute hepatitis. 2. Cholecystitis 3. Hypertension. 4. Drug abuse. 5. Opiate and drug-seeking behavior. PLAN: Patient remains stable, continue abx, f/u surgical/GI rec-s [facility] staff Problems: Consultation Date/Type/Reason Admit Date/Time Apr 11, 2017 at 14:15 Initial Consult Date 04/12/17 Type of Consultation: ID Referring Provider: LUCIANO MAIER Exam/Review of Systems Vital Signs Vitals Vital Signs Date Time Temp Pulse Resp B/P Pulse Ox O2 Delivery O2 Flow Rate FiO2 04/17/17 07:29 98.1 82 18 149/82 99 04/16/17 23:59 Room Air Intake and Output 04/16/17 04/16/17 04/17/17 15:00 23:00 07:00 Intake Total 945 ml 450 ml Output Total 850 ml Balance 945 ml -400 ml Results Result Diagram: 04/17/17 0455 04/17/17 0455 Results 24 hrs Laboratory Tests Test 04/17/17 04:55 04/17/17 10:52 White Blood Count 4.1 L Red Blood Count 3.84 L Hemoglobin 10.7 L Hematocrit 32.6 L Mean Corpuscular Volume 84.9 Mean Corpuscular Hemoglobin 27.9 L Mean Corpuscular Hemoglobin Concent 32.8 Red Cell Distribution Width 16.0 H Platelet Count 237 Mean Platelet Volume 11.4 H Neutrophils % 41.4 Lymphocytes % 45.1 Monocytes % 10.4 Eosinophils % 1.7 Basophils % 1.2 Nucleated Red Blood Cells % 0.0 Neutrophils # (Manual) 2 Lymphocytes # 1.9 Monocytes # 0.4 Eosinophils # 0.1 Basophils # 0.1 Nucleated Red Blood Cells # 0.0 Sodium Level 142 Potassium Level 3.7 Chloride Level 101 Carbon Dioxide Level 30 Anion Gap 15 Blood Urea Nitrogen 5 L Creatinine 0.54 Glucose Level 73 Calcium Level 8.8 Total Bilirubin 5.2 H Direct Bilirubin 4.10 H Indirect Bilirubin 1.1 Aspartate Amino Transf (AST/SGOT) 2290 H Alanine Aminotransferase (ALT/SGPT) 1726 H Alkaline Phosphatase 218 H Total Protein 6.0 L Albumin 2.6 L Globulin 3.40 H Albumin/Globulin Ratio 0.76 Lab Scanned Report REFERENCE LAB Medications Medications Current Medications Ondansetron HCl (Zofran Inj) 4 mg Q6H PRN IV NAUSEA AND/OR VOMITING Last administered on 04/17/17 10:25; Admin Dose 4 MG; Start 04/11/17 at 15:30 Acetaminophen (Tylenol Tab) 650 mg Q6H PRN PO PAIN LEVEL 1-3 OR FEVER; Start at 15:30 Docusate Sodium (Colace) 100 mg Q12H PRN PO CONSTIPATION; Start 04/11/17 at 15: 30 Magnesium Hydroxide (Milk Of Mag) 30 ml DAILY PRN PO CONSTIPATION; Start at 15:30 Sodium Biphosphate/ Sodium Phosphate (Fleet Enema) 133 ml DAILY PRN [place] CONSTIPATION; Start 04/11/17 at 15:30 Nitroglycerin (Nitroglycerin (Sl Tab) 0.4 Mg) 1 tab Q5M PRN SL ANGINA; Start at 15:30 Hydromorphone HCl (Dilaudid) 0.5 mg Q3H PRN IV PAIN Last administered on 13:26; Admin Dose 0.5 MG; Start 04/14/17 at 12:30 Levofloxacin (Levaquin) 500 mg DAILY@06 PO Last administered on 04/17/17 06:03 ; Admin Dose 500 MG; Start 04/17/17 at 06:00 Metronidazole (Flagyl) 500 mg Q8 PO Last administered on 04/17/17 14:51; Admin Dose 500 MG; Start 04/16/17 at 15:00 Alprazolam (Xanax) 0.25 mg Q8H PRN PO ANXIETY Last administered on 04/17/17 10 :26; Admin Dose 0.25 MG; Start 04/16/17 at 21:30 Hydralazine HCl (Apresoline) 10 mg Q6H PRN IV SBP >160; Start 04/16/17 at 23:30 HORTENSIA RICO NP Apr 17, 2017 15:24
--- NOTE | 2017-04-17 16:46 | PN ---
Date/Time of Note Date/Time of Note DATE: 04/17/17 TIME: 16:45 Assessment/Plan VTE Prophylaxis VTE Prophylaxis Intervention: SCD's Lines/Catheters IV [facility] (from [facility] [place] Urinary Cath still in place: No Assessment/Plan Assessment/Plan 46-year-old female presented with abdominal pain and transaminitis of unclear etiology. Also cholecystitis on imaging. GI, gen surg already on consult, etiology unclear. New hepatitis B (unlikely given + sAg and cAb) v other PLAN ID following re hepatitis B await HIDA results abx as per ID gen surg following, surgical planning for lap charles in process Subjective 24 Hr Interval Summary Free Text/Dictation Pt texting on her phone Exam/Review of Systems Vital Signs Vitals Vital Signs Date Time Temp Pulse Resp B/P Pulse Ox O2 Delivery O2 Flow Rate FiO2 04/17/17 07:29 98.1 82 18 149/82 99 04/16/17 23:59 Room Air Intake and Output 04/16/17 04/16/17 04/17/17 15:00 23:00 07:00 Intake Total 945 ml 450 ml Output Total 850 ml Balance 945 ml -400 ml Exam nad resp nonlabored no gross abd distension no rashes no edema transaminases slightly better, hep B serologies still pending though presents of +sAg, +cAb most consistent with chronic infection Results Result Diagram: 04/17/17 0455 04/17/17 0455 Results 24 hrs Laboratory Tests Test 04/17/17 04:55 04/17/17 10:52 White Blood Count 4.1 L Red Blood Count 3.84 L Hemoglobin 10.7 L Hematocrit 32.6 L Mean Corpuscular Volume 84.9 Mean Corpuscular Hemoglobin 27.9 L Mean Corpuscular Hemoglobin Concent 32.8 Red Cell Distribution Width 16.0 H Platelet Count 237 Mean Platelet Volume 11.4 H Neutrophils % 41.4 Lymphocytes % 45.1 Monocytes % 10.4 Eosinophils % 1.7 Basophils % 1.2 Nucleated Red Blood Cells % 0.0 Neutrophils # (Manual) 2 Lymphocytes # 1.9 Monocytes # 0.4 Eosinophils # 0.1 Basophils # 0.1 Nucleated Red Blood Cells # 0.0 Sodium Level 142 Potassium Level 3.7 Chloride Level 101 Carbon Dioxide Level 30 Anion Gap 15 Blood Urea Nitrogen 5 L Creatinine 0.54 Glucose Level 73 Calcium Level 8.8 Total Bilirubin 5.2 H Direct Bilirubin 4.10 H Indirect Bilirubin 1.1 Aspartate Amino Transf (AST/SGOT) 2290 H Alanine Aminotransferase (ALT/SGPT) 1726 H Alkaline Phosphatase 218 H Total Protein 6.0 L Albumin 2.6 L Globulin 3.40 H Albumin/Globulin Ratio 0.76 Lab Scanned Report REFERENCE LAB Medications Medications Current Medications Ondansetron HCl (Zofran Inj) 4 mg Q6H PRN IV NAUSEA AND/OR VOMITING Last administered on 04/17/17 16:40; Admin Dose 4 MG; Start 04/11/17 at 15:30 Acetaminophen (Tylenol Tab) 650 mg Q6H PRN PO PAIN LEVEL 1-3 OR FEVER; Start at 15:30 Docusate Sodium (Colace) 100 mg Q12H PRN PO CONSTIPATION; Start 04/11/17 at 15: 30 Magnesium Hydroxide (Milk Of Mag) 30 ml DAILY PRN PO CONSTIPATION; Start at 15:30 Sodium Biphosphate/ Sodium Phosphate (Fleet Enema) 133 ml DAILY PRN [place] CONSTIPATION; Start 04/11/17 at 15:30 Nitroglycerin (Nitroglycerin (Sl Tab) 0.4 Mg) 1 tab Q5M PRN SL ANGINA; Start at 15:30 Hydromorphone HCl (Dilaudid) 0.5 mg Q3H PRN IV PAIN Last administered on 16:40; Admin Dose 0.5 MG; Start 04/14/17 at 12:30 Levofloxacin (Levaquin) 500 mg DAILY@06 PO Last administered on 04/17/17 06:03 ; Admin Dose 500 MG; Start 04/17/17 at 06:00 Metronidazole (Flagyl) 500 mg Q8 PO Last administered on 04/17/17 14:51; Admin Dose 500 MG; Start 04/16/17 at 15:00 Alprazolam (Xanax) 0.25 mg Q8H PRN PO ANXIETY Last administered on 04/17/17 10 :26; Admin Dose 0.25 MG; Start 04/16/17 at 21:30 Hydralazine HCl (Apresoline) 10 mg Q6H PRN IV SBP >160; Start 04/16/17 at 23:30 EZRA WATTS MD Apr 17, 2017 16:46
[2017-04-17 19:05] VITALS: BP 172/98; RESP 17
--- NOTE | 2017-04-17 19:53 | PN ---
Date/Time of Note Date/Time of Note DATE: 04/17/17 TIME: 19:50 Assessment/Plan Lines/Catheters IV Catheter Type (from Nrsg): Saline Lock Liriano in Place (from Nrsg): No Assessment/Plan Assessment/Plan [facility] Progress Note Date of Service: 04/17/2017 Place of service: [facility] fourth floor Today's Assessment & Plan: Overall stable and somewhat clinically improved, but with persistently abnormal AST and ALT but improved T. bili. Concentric gallbladder noted on the MRCP. No indication for acute surgical intervention until hepatitis has improved. Lap charles after significant resolution of hepatitis. Discussed with the patient and the team (much appreciate Dr. Arora's input) and answered questions. With above assessment, I've recommended the followin. Continue current management 2. Adequate pain control (patient likely has low threshold for pain and will require larger than normal doses) 3. Multidisciplinary discussion 4. If no surgery or endoscopic intervention planned, the patient may be able to take orals until procedure is planned 5. Likely will need laparoscopic cholecystectomy in a few weeks when hepatitis is improved 6. Monitor LFTs Thank you very much for having me involved in the care of this very pleasant patient and wonderful family. If you have any questions, please feel free to contact me at [phone]. Nature of presenting problem: High severity Please note that, given the extensive number of diagnoses or management options , the extensive amount and/or complexity of data needed to be reviewed ( including more than 50 pages of outside records and outside ultrasound, chest x- ray and CT scan of the abdomen and pelvis), and high risk of complications and/ or morbidity or mortality, this qualifies as high complexity type of decision- making. Disclaimer: Inadvertent spelling and grammatical errors are likely due to EHR/ dictation software use and do not reflect on the quality of delivered patient care. Also, please note that the electronic time recorded on this node does not necessarily reflect the actual time of the visit. Updated clinical summary: A very-pleasant but unfortunate 46-year-old lady with multiple comorbidities, admitted with active hepatitis B infection and possible acute cholecystitis. Comorbidities: 1. Active hepatitis B infection 2. Gallbladder wall thickening in the setting of #1 above, possibly indicating acute cholecystitis 3. Intravenous drug abuse (drug screen positive for opiates, amphetamines at [facility] March 2017) 4. Hypertension 5. Urinary tract infection 6. 4 Subjective: No major events or complaints; still with abd pain and under semi-adequate control with medications; feeling the same than the last few days and still fairly emotional during the discussions; no n/v/d; no sob or cp; + flatus; + BM ; minimal activity Objective: Vitals: See below I's & O's: See below Exam: GENERAL: On exam, the patient was lying in bed and appeared to be comfortable and in no acute distress. Today she was still emotional during the conversation. ABDOMEN: Soft, minimally to no tenderness to palpation in the right upper quadrant and no tenderness in the rest of the abdominal cavity, and nondistended. There are no peritoneal signs or guarding. SKIN: Skin appears to be pink and feels warm to touch. NEUROLOGIC: Patient is awake, alert, and follows commands appropriately. Labs: See below Exam/Review of Systems Vital Signs Vitals Vital Signs Date Time Temp Pulse Resp B/P Pulse Ox O2 Delivery O2 Flow Rate FiO2 04/17/17 14:30 98.3 81 17 148/84 98 04/16/17 23:59 Room Air Intake and Output 04/16/17 04/16/17 04/17/17 15:00 23:00 07:00 Intake Total 945 ml 450 ml Output Total 850 ml Balance 945 ml -400 ml Results Result Diagram: 04/17/17 0455 04/17/17 0455 MILI MORELAND M.D. Apr 17, 2017 19:53
[2017-04-17 21:35] VITALS: BP 163/89; PULSE 73; RESP 20
[2017-04-17 23:00] VITALS: BP 138/76; PULSE 89; RESP 20
[2017-04-18] MEDS: ONDANSETRON 4 MG INJ IV PRN ×3 (01:50→20:16)
[2017-04-18] MEDS: HYDROmorphONE 1 MG/ML SYG IV PRN ×5 (01:54→20:19)
[2017-04-18] MEDS ORDERED: KETOROLAC 15 MG INJ IV ONE (03:14)
[2017-04-18] MEDS ORDERED: METOCLOPRAMIDE 10 MG INJ IV ONE (03:30)
[2017-04-18 05:29] LABS: BASOPHIL # 0.1 10^3/ul (0.0-0.1); BASOPHILS % 0.9 % (0.0-2.0); EOSINOPHILS # 0.1 10^3/ul (0.0-0.5); EOSINOPHILS % 1.6 % (0.0-7.0); HEMATOCRIT 34.3 % (37.0-47.0); HEMOGLOBIN 11.6 g/dl (12.0-16.0); LYMPHOCYTES # 1.6 10^3/ul (0.8-2.9); LYMPHOCYTES % 28.3 % (15.0-51.0); MEAN CORPUSCULAR HEMOGLOBIN 28.8 pg (29.0-33.0); MEAN CORPUSCULAR HGB CONC 33.8 g/dl (32.0-37.0); MEAN CORPUSCULAR VOLUME 85.1 fl (82.0-101.0); MEAN PLATELET VOLUME 11.5 fl (7.4-10.4); MONOCYTE # 0.6 10^3/ul (0.3-0.9); MONOCYTES % 10.4 % (0.0-11.0); NEUTROPHILS % 58.3 % (39.0-77.0); PLATELET COUNT 259 10^3/UL (140-415); RED BLOOD COUNT 4.03 10^6/ul (4.20-5.40); RED CELL DISTRIBUTION WIDTH 16.1 % (11.5-14.5); WHITE BLOOD COUNT 5.8 10^3/ul (4.8-10.8)
[2017-04-18 06:13] LABS: ALBUMIN 2.9 g/dl (3.3-4.9); ALBUMIN/GLOBULIN RATIO 0.76; BILIRUBIN,DIRECT 4.2 mg/dl (0.00-0.20); BILIRUBIN,INDIRECT 1.3 mg/dl (0-1.1); BILIRUBIN,TOTAL 5.5 mg/dl (0.2-1.3); CALCIUM 8.7 mg/dl (8.4-10.2); CREATININE 0.62 mg/dl (0.44-1.00); POTASSIUM 3.2 mmol/L (3.5-5.1); TOTAL PROTEIN 6.7 g/dl (6.1-8.1)
[2017-04-18] MEDS: LEVOFLOXACIN 500 MG TAB PO SCH (06:58)
[2017-04-18] MEDS: metroNIDAZOLE 500 MG TAB PO SCH ×3 (06:58→22:41)
[2017-04-18 08:13] VITALS: BP 165/83; RESP 18
[2017-04-18] MEDS ORDERED: POTASSIUM CHLORIDE (SR) 20 MEQ TAB PO STA (12:34)
--- NOTE | 2017-04-18 12:41 | PN ---
Date/Time of Note Date/Time of Note DATE: 04/18/17 TIME: 12:32 Assessment/Plan VTE Prophylaxis VTE Prophylaxis Intervention: SCD's Lines/Catheters IV Catheter Type (from Nrs): Saline Lock Urinary Cath still in place: No Assessment/Plan Assessment/Plan 1. Active hepatitis B infection, from IVDA, follow up with enzymes 2. Gallbladder wall thickening in the setting of #1 above, possibly indicating acute cholecystitis, on antibiotics 3. Polysubstance abuse with IVDA with heroin, amphetamines, alcohol, and others 4. Hypertension, stable 5. Urinary tract infection, on levaquin 6. 4 DVT prophylaxis: SCD Subjective 24 Hr Interval Summary Free Text/Dictation abdominal pain, nausea Exam/Review of Systems Vital Signs Vitals Vital Signs Date Time Temp Pulse Resp B/P Pulse Ox O2 Delivery O2 Flow Rate FiO2 04/18/17 08:13 98.0 79 18 165/83 98 04/17/17 23:00 Room Air Intake and Output 04/17/17 04/17/17 04/18/17 15:00 23:00 07:00 Intake Total 650 ml Balance 650 ml Exam Constitutional: alert, oriented, well developed Psych: nl mood/affect, no complaints Head: atraumatic, normocephalic Eyes: EOMI, PERRL, nl conjunctiva, nl lids ENMT: mucosa pink and moist, nl external ears & nose, nl lips & teeth, nl nasal mucosa & septum Neck: non-tender, supple Respiratory: clear to auscultation, normal air movement, No congested cough, No crackles/rales, No diminished breath sounds, No intercostal retraction, No labored breathing, No other, No respirations, No tactile fremitus, No wheezing Cardiovascular: nl pulses, regular rate and rhythm, No S3, No S4, No bruits, No diastolic murmur, No edema, No gallop, No irregular rhythm, No jugular venous distention (JVD), No murmurs/extra sounds, No other, No rub, No systolic murmur Gastrointestinal: hepatomegaly, soft, No ascites, No bowel sounds, No firm, No mass, No other, No rebound or guarding, No splenomegaly, No surgical scars Musculoskeletal: nl extremities to inspection Extremities: normal pulses, No calf tenderness, No clubbing, No cyanosis, No edema, No other, No palpable cord, No pitting pedal edema, No tenderness Neurological: GRE[employer] KEEPER II-XII intact, nl mental status, nl speech, nl strength Skin: nl turgor Results Result Diagram: 04/18/1742804/18/17428 Results 24 hrs Laboratory Tests Test 04/18/17 04:29 White Blood Count 5.8 # Red Blood Count 4.03 L Hemoglobin 11.6 L Hematocrit 34.3 L Mean Corpuscular Volume 85.1 Mean Corpuscular Hemoglobin 28.8 L Mean Corpuscular Hemoglobin Concent 33.8 Red Cell Distribution Width 16.1 H Platelet Count 259 Mean Platelet Volume 11.5 H Neutrophils % 58.3 Lymphocytes % 28.3 Monocytes % 10.4 Eosinophils % 1.6 Basophils % 0.9 Nucleated Red Blood Cells % 0.0 Neutrophils # (Manual) 3 Lymphocytes # 1.6 Monocytes # 0.6 Eosinophils # 0.1 Basophils # 0.1 Nucleated Red Blood Cells # 0.0 Sodium Level 137 Potassium Level 3.2 L Chloride Level 100 Carbon Dioxide Level 28 Anion Gap 12 Blood Urea Nitrogen 4 L Creatinine 0.62 Glucose Level 106 Calcium Level 8.7 Total Bilirubin 5.5 H Direct Bilirubin 4.20 H Indirect Bilirubin 1.3 H Aspartate Amino Transf (AST/SGOT) 1427 H Alanine Aminotransferase (ALT/SGPT) 1374 H Alkaline Phosphatase 222 H Total Protein 6.7 Albumin 2.9 L Globulin 3.80 H Albumin/Globulin Ratio 0.76 Medications Medications Current Medications Ondansetron HCl (Zofran Inj) 4 mg Q6H PRN IV NAUSEA AND/OR VOMITING Last administered on 04/18/17t 01:50; Admin Dose 4 MG; Start 04/11/17 at 15:30 Acetaminophen (Tylenol Tab) 650 mg Q6H PRN PO PAIN LEVEL 1-3 OR FEVER; Start at 15:30 Docusate Sodium (Colace) 100 mg Q12H PRN PO CONSTIPATION; Start 04/11/17 at 15: 30 Magnesium Hydroxide (Milk Of Mag) 30 ml DAILY PRN PO CONSTIPATION; Start at 15:30 Sodium Biphosphate/ Sodium Phosphate (Fleet Enema) 133 ml DAILY PRN [place] CONSTIPATION; Start 04/11/17 at 15:30 Nitroglycerin (Nitroglycerin (Sl Tab) 0.4 Mg) 1 tab Q5M PRN SL ANGINA; Start at 15:30 Hydromorphone HCl (Dilaudid) 0.5 mg Q3H PRN IV PAIN Last administered on 09:44; Admin Dose 0.5 MG; Start 04/14/17 at 12:30 Levofloxacin (Levaquin) 500 mg DAILY@06 PO Last administered on 04/18/17 06:58 ; Admin Dose 500 MG; Start 04/17/17 at 06:00 Metronidazole (Flagyl) 500 mg Q8 PO Last administered on 04/18/17 06:58; Admin Dose 500 MG; Start 04/16/17 at 15:00 Alprazolam (Xanax) 0.25 mg Q8H PRN PO ANXIETY Last administered on 04/17/17 19 :00; Admin Dose 0.25 MG; Start 04/16/17 at 21:30 Hydralazine HCl (Apresoline) 10 mg Q6H PRN IV SBP >160 Last administered on 21:42; Admin Dose 10 MG; Start 04/16/17 at 23:30 Zolpidem Tartrate (Ambien) 10 mg HS PRN PO INSOMNIA; Start 04/17/17 at 21:30 NIRU WRIGHT MD Apr 18, 2017 12:40
[2017-04-18 14:22] VITALS: BP 140/82; RESP 18
--- NOTE | 2017-04-18 14:23 | CONS ---
Date/Time of Note Date/Time of Note DATE: 04/18/17 TIME: 14:17 Assessment/Plan Assessment/Plan Chief Complaint/Hosp Course No acute changes. Patient is awake, no fevers, nad ANTIMICROBIAL: Levaquin, Flagyl PHYSICAL EXAMINATION: GENERAL: This is a well-developed, well-nourished, middle-aged woman who is in no distress. HEENT: Head atraumatic, normocephalic. Sclerae anicteric. Buccal mucosa dry. NECK: Supple. CHEST: Rise symmetrical. Breath sounds diminished at the bases. ABDOMEN: Soft, bowel sounds hypoactive. EXTREMITIES: Without cyanosis. ASSESSMENT: 1. Right upper quadrant abdominal pain with abnormal liver function tests, questionable acute hepatitis. 2. Cholecystitis 3. Hypertension. 4. Drug abuse. 5. Opiate and drug-seeking behavior. PLAN: Patient remains stable, continue abx, f/u surgical/GI rec-s [facility] staff Problems: Consultation Date/Type/Reason Admit Date/Time Apr 11, 2017 at 14:15 Initial Consult Date 04/12/17 Type of Consultation: ID Referring Provider: LUCIANO MAIER Exam/Review of Systems Vital Signs Vitals Vital Signs Date Time Temp Pulse Resp B/P Pulse Ox O2 Delivery O2 Flow Rate FiO2 04/18/17 08:13 98.0 79 18 165/83 98 04/17/17 23:00 Room Air Intake and Output 04/17/17 04/17/17 04/18/17 15:00 23:00 07:00 Intake Total 650 ml Balance 650 ml Results Result Diagram: 04/18/17 0429 04/18/17 0429 Results 24 hrs Laboratory Tests Test 04/18/17 04:29 White Blood Count 5.8 # Red Blood Count 4.03 L Hemoglobin 11.6 L Hematocrit 34.3 L Mean Corpuscular Volume 85.1 Mean Corpuscular Hemoglobin 28.8 L Mean Corpuscular Hemoglobin Concent 33.8 Red Cell Distribution Width 16.1 H Platelet Count 259 Mean Platelet Volume 11.5 H Neutrophils % 58.3 Lymphocytes % 28.3 Monocytes % 10.4 Eosinophils % 1.6 Basophils % 0.9 Nucleated Red Blood Cells % 0.0 Neutrophils # (Manual) 3 Lymphocytes # 1.6 Monocytes # 0.6 Eosinophils # 0.1 Basophils # 0.1 Nucleated Red Blood Cells # 0.0 Sodium Level 137 Potassium Level 3.2 L Chloride Level 100 Carbon Dioxide Level 28 Anion Gap 12 Blood Urea Nitrogen 4 L Creatinine 0.62 Glucose Level 106 Calcium Level 8.7 Total Bilirubin 5.5 H Direct Bilirubin 4.20 H Indirect Bilirubin 1.3 H Aspartate Amino Transf (AST/SGOT) 1427 H Alanine Aminotransferase (ALT/SGPT) 1374 H Alkaline Phosphatase 222 H Total Protein 6.7 Albumin 2.9 L Globulin 3.80 H Albumin/Globulin Ratio 0.76 Medications Medications Current Medications Ondansetron HCl (Zofran Inj) 4 mg Q6H PRN IV NAUSEA AND/OR VOMITING Last administered on 04/18/17 13:01; Admin Dose 4 MG; Start 04/11/17 at 15:30 Acetaminophen (Tylenol Tab) 650 mg Q6H PRN PO PAIN LEVEL 1-3 OR FEVER; Start at 15:30 Docusate Sodium (Colace) 100 mg Q12H PRN PO CONSTIPATION; Start 04/11/17 at 15: 30 Magnesium Hydroxide (Milk Of Mag) 30 ml DAILY PRN PO CONSTIPATION; Start at 15:30 Sodium Biphosphate/ Sodium Phosphate (Fleet Enema) 133 ml DAILY PRN [place] CONSTIPATION; Start 04/11/17 at 15:30 Nitroglycerin (Nitroglycerin (Sl Tab) 0.4 Mg) 1 tab Q5M PRN SL ANGINA; Start at 15:30 Hydromorphone HCl (Dilaudid) 0.5 mg Q3H PRN IV PAIN Last administered on 13:01; Admin Dose 0.5 MG; Start 04/14/17 at 12:30 Levofloxacin (Levaquin) 500 mg DAILY@06 PO Last administered on 04/18/17 06:58 ; Admin Dose 500 MG; Start 04/17/17 at 06:00 Metronidazole (Flagyl) 500 mg Q8 PO Last administered on 04/18/17 06:58; Admin Dose 500 MG; Start 04/16/17 at 15:00 Alprazolam (Xanax) 0.25 mg Q8H PRN PO ANXIETY Last administered on 04/17/17 19 :00; Admin Dose 0.25 MG; Start 04/16/17 at 21:30 Hydralazine HCl (Apresoline) 10 mg Q6H PRN IV SBP >160 Last administered on t 21:42; Admin Dose 10 MG; Start 04/16/17 at 23:30 Zolpidem Tartrate (Ambien) 10 mg HS PRN PO INSOMNIA; Start 04/17/17 at 21:30 HORTENSIA RICO NP Apr 18, 2017 14:23
[2017-04-18] MEDS: ALPRAZOLAM 0.25 MG TAB PO PRN (14:41)
--- NOTE | 2017-04-18 17:57 | PN ---
Date/Time of Note Date/Time of Note DATE: 04/18/17 TIME: 17:54 Assessment/Plan VTE Prophylaxis VTE Prophylaxis Intervention: SCD's Lines/Catheters [facility] Saline Lock Urinary Cath still in place: No Assessment/Plan Assessment/Plan Assessment * Right upper quadrant pain/abnormal liver function tests with hepatocellular pattern * Acute hepatitis B * Cholelithiasis, no evidence of choledocholithiasis * Polysubstance abuse/IV drug abuse * History of hypertension * Opiate seeking behavior * Anxiety Plan * Continue present regimen * Monitor liver function tests * The for cholecystectomy until resolution of acute hepatitis Subjective Subjective 24 Hr Interval Summary Free Text/Dictation * Course reviewed with RN * Patient seen and examined * Complaining of epigastric and right upper quadrant abdominal pain and nausea * Tolerating diet * Hepatitis serologies consistent with acute hepatitis B * Suggest holding off on cholecystectomy until fully recovered from acute hepatitis Exam Constitutional: alert, frail, jaundiced, lethargic (received Ativan) Neck: non-tender, supple Respiratory: clear to auscultation, normal air movement Cardiovascular: nl pulses, regular rate and rhythm Gastrointestinal: soft, moderately tender epigastrium and right upper quadrant area No rebound or guarding Extremities: normal pulses Neurological: nl mental status, nl speech Skin: nl turgor, No rash or lesions Exam/Review of Systems Vital Signs Vitals Vital Signs Date Time Temp Pulse Resp B/P Pulse Ox O2 Delivery O2 Flow Rate FiO2 04/18/17 14:22 98.2 76 18 140/82 90 04/17/17 23:00 Room Air Intake and Output 04/17/17 04/17/17 04/18/17 15:00 23:00 07:00 Intake Total 650 ml Balance 650 ml Results Result Diagram: 04/18/17 0429 04/18/17 0429 Results 24 hrs Laboratory Tests Test 04/18/17 04:29 White Blood Count 5.8 # Red Blood Count 4.03 L Hemoglobin 11.6 L Hematocrit 34.3 L Mean Corpuscular Volume 85.1 Mean Corpuscular Hemoglobin 28.8 L Mean Corpuscular Hemoglobin Concent 33.8 Red Cell Distribution Width 16.1 H Platelet Count 259 Mean Platelet Volume 11.5 H Neutrophils % 58.3 Lymphocytes % 28.3 Monocytes % 10.4 Eosinophils % 1.6 Basophils % 0.9 Nucleated Red Blood Cells % 0.0 Neutrophils # (Manual) 3 Lymphocytes # 1.6 Monocytes # 0.6 Eosinophils # 0.1 Basophils # 0.1 Nucleated Red Blood Cells # 0.0 Sodium Level 137 Potassium Level 3.2 L Chloride Level 100 Carbon Dioxide Level 28 Anion Gap 12 Blood Urea Nitrogen 4 L Creatinine 0.62 Glucose Level 106 Calcium Level 8.7 Total Bilirubin 5.5 H Direct Bilirubin 4.20 H Indirect Bilirubin 1.3 H Aspartate Amino Transf (AST/SGOT) 1427 H Alanine Aminotransferase (ALT/SGPT) 1374 H Alkaline Phosphatase 222 H Total Protein 6.7 Albumin 2.9 L Globulin 3.80 H Albumin/Globulin Ratio 0.76 Medications Medications Current Medications Ondansetron HCl (Zofran Inj) 4 mg Q6H PRN IV NAUSEA AND/OR VOMITING Last administered on 04/18/17 13:01; Admin Dose 4 MG; Start 04/11/17 at 15:30 Acetaminophen (Tylenol Tab) 650 mg Q6H PRN PO PAIN LEVEL 1-3 OR FEVER; Start at 15:30 Docusate Sodium (Colace) 100 mg Q12H PRN PO CONSTIPATION; Start 04/11/17 at 15: 30 Magnesium Hydroxide (Milk Of Mag) 30 ml DAILY PRN PO CONSTIPATION; Start at 15:30 Sodium Biphosphate/ Sodium Phosphate (Fleet Enema) 133 ml DAILY PRN [place] CONSTIPATION; Start 04/11/17 at 15:30 Nitroglycerin (Nitroglycerin (Sl Tab) 0.4 Mg) 1 tab Q5M PRN SL ANGINA; Start at 15:30 Hydromorphone HCl (Dilaudid) 0.5 mg Q3H PRN IV PAIN Last administered on 17:31; Admin Dose 0.5 MG; Start 04/14/17 at 12:30 Levofloxacin (Levaquin) 500 mg DAILY@06 PO Last administered on 04/18/17 06:58 ; Admin Dose 500 MG; Start 04/17/17 at 06:00 Metronidazole (Flagyl) 500 mg Q8 PO Last administered on 04/18/17 14:41; Admin Dose 500 MG; Start 04/16/17 at 15:00 Alprazolam (Xanax) 0.25 mg Q8H PRN PO ANXIETY Last administered on 04/18/17 14 :41; Admin Dose 0.25 MG; Start 04/16/17 at 21:30 Hydralazine HCl (Apresoline) 10 mg Q6H PRN IV SBP >160 Last administered on 21:42; Admin Dose 10 MG; Start 04/16/17 at 23:30 Zolpidem Tartrate (Ambien) 10 mg HS PRN PO INSOMNIA; Start 04/17/17 at 21:30 DEEPAK SELLERS MD Apr 18, 2017 17:57
[2017-04-18 19:05] VITALS: BP 168/94; RESP 18
[2017-04-18] MEDS: ZOLPIDEM 5 MG TAB PO PRN (22:13)
[2017-04-19] MEDS: HYDROCODONE/APAP (7.5/325) TAB PO PRN ×2 (00:10→20:06)
[2017-04-19 02:05] VITALS: BP 139/86; RESP 18
[2017-04-19] MEDS: HYDROmorphONE 1 MG/ML SYG IV PRN ×7 (02:11→21:17)
[2017-04-19] MEDS: ONDANSETRON 4 MG INJ IV PRN ×4 (02:11→19:23)
[2017-04-19] MEDS: ALPRAZOLAM 0.25 MG TAB PO PRN ×2 (04:51→22:25)
[2017-04-19 05:33] LABS: BASOPHIL # 0.1 10^3/ul (0.0-0.1); BASOPHILS % 0.8 % (0.0-2.0); EOSINOPHILS # 0.1 10^3/ul (0.0-0.5); EOSINOPHILS % 1.2 % (0.0-7.0); HEMATOCRIT 33.7 % (37.0-47.0); HEMOGLOBIN 11.4 g/dl (12.0-16.0); LYMPHOCYTES # 2.3 10^3/ul (0.8-2.9); LYMPHOCYTES % 38.7 % (15.0-51.0); MEAN CORPUSCULAR HEMOGLOBIN 28.6 pg (29.0-33.0); MEAN CORPUSCULAR HGB CONC 33.8 g/dl (32.0-37.0); MEAN CORPUSCULAR VOLUME 84.5 fl (82.0-101.0); MEAN PLATELET VOLUME 11.4 fl (7.4-10.4); MONOCYTE # 0.5 10^3/ul (0.3-0.9); MONOCYTES % 8.6 % (0.0-11.0); NEUTROPHILS % 50.4 % (39.0-77.0); PLATELET COUNT 289 10^3/UL (140-415); RED BLOOD COUNT 3.99 10^6/ul (4.20-5.40); RED CELL DISTRIBUTION WIDTH 16.5 % (11.5-14.5); WHITE BLOOD COUNT 6.1 10^3/ul (4.8-10.8)
[2017-04-19 06:09] LABS: ALBUMIN 2.8 g/dl (3.3-4.9); ALBUMIN/GLOBULIN RATIO 0.75; BILIRUBIN,DIRECT 3.3 mg/dl (0.00-0.20); BILIRUBIN,INDIRECT 1.1 mg/dl (0-1.1); BILIRUBIN,TOTAL 4.4 mg/dl (0.2-1.3); CALCIUM 8.6 mg/dl (8.4-10.2); CREATININE 0.71 mg/dl (0.44-1.00); POTASSIUM 3.7 mmol/L (3.5-5.1); TOTAL PROTEIN 6.5 g/dl (6.1-8.1)
[2017-04-19] MEDS: metroNIDAZOLE 500 MG TAB PO SCH ×3 (06:10→21:17)
[2017-04-19] MEDS: LEVOFLOXACIN 500 MG TAB PO SCH (06:10)
[2017-04-19 07:26] VITALS: BP 138/77; RESP 18
--- NOTE | 2017-04-19 07:59 | PN ---
Date/Time of Note Date/Time of Note DATE: 04/18/17 TIME: 07:55 Assessment/Plan Lines/Catheters IV Catheter Type (from Nrsg): Saline Lock Liriano in Place (from Nrsg): No Assessment/Plan Assessment/Plan [facility] Progress Note (late entry) Date of Service: 04/18/2017 Place of service: [facility] fourth floor Today's Assessment & Plan: Overall stable and with improvements in LFT's overall. Concentric gallbladder noted on the MRCP. No indication for acute surgical intervention until hepatitis has improved. Lap charles after significant resolution of hepatitis. Discussed with the patient and the team (much appreciate Dr. Arora's input) and answered questions. With above assessment, I've recommended the followin. Continue current management 2. Adequate pain control (patient likely has low threshold for pain and will require larger than normal doses) 3. Multidisciplinary discussion 4. If no surgery or endoscopic intervention planned, the patient may be able to take orals until procedure is planned 5. Likely will need laparoscopic cholecystectomy in a few weeks when hepatitis is improved 6. Monitor LFTs Thank you very much for having me involved in the care of this very pleasant patient and wonderful family. If you have any questions, please feel free to contact me at [phone]. Nature of presenting problem: High severity Please note that, given the extensive number of diagnoses or management options , the extensive amount and/or complexity of data needed to be reviewed ( including more than 50 pages of outside records and outside ultrasound, chest x- ray and CT scan of the abdomen and pelvis), and high risk of complications and/ or morbidity or mortality, this qualifies as high complexity type of decision- making. Disclaimer: Inadvertent spelling and grammatical errors are likely due to EHR/ dictation software use and do not reflect on the quality of delivered patient care. Also, please note that the electronic time recorded on this node does not necessarily reflect the actual time of the visit. Updated clinical summary: A very-pleasant but unfortunate 46-year-old lady with multiple comorbidities, admitted with active hepatitis B infection and possible acute cholecystitis. Comorbidities: 1. Active hepatitis B infection 2. Gallbladder wall thickening in the setting of #1 above, possibly indicating acute cholecystitis 3. Intravenous drug abuse (drug screen positive for opiates, amphetamines at [facility] March 2017) 4. Hypertension 5. Urinary tract infection 6. 4 Subjective: No major events or complaints; still with reported abd pain and under semi- adequate control with medications; reportedly feeling the same as the last few days and still fairly emotional during the discussions; no n/v/d; no sob or cp; + flatus; + BM; minimal activity Objective: Vitals: See below I's & O's: See below Exam: GENERAL: On exam, the patient was lying in bed and appeared to be soundly asleep ; I did not wake her up SKIN: Skin appears to be pink NEUROLOGIC: Patient is sound asleep Labs: See below Exam/Review of Systems Vital Signs Vitals Vital Signs Date Time Temp Pulse Resp B/P Pulse Ox O2 Delivery O2 Flow Rate FiO2 04/19/17 07:26 98.4 73 18 138/77 97 04/17/17 23:00 Room Air Intake and Output 04/18/17 04/18/17 04/19/17 15:00 23:00 07:00 Intake Total 760 ml 650 ml Balance 760 ml 650 ml Results Result Diagram: 04/19/17 0443 04/19/17 0443 MILI MORELAND M.D. Apr 19, 2017 07:59
--- NOTE | 2017-04-19 08:00 | PN ---
Date/Time of Note Date/Time of Note DATE: 04/19/17 TIME: 08:00 Assessment/Plan Lines/Catheters IV Catheter Type (from Nrsg): Saline Lock Liriano in Place (from Nrsg): No Assessment/Plan Assessment/Plan [facility] Progress Note Date of Service: 04/19/2017 Place of service: [facility] fourth floor Today's Assessment & Plan: Overall stable and continues to slowly improve clinically including her LFT's. Concentric gallbladder noted on the MRCP. Still with fair amount of reported pain; unclear as to how much is from active hepatitis, GB issues and possible drug seeking behavior. No indication for acute surgical intervention until hepatitis has improved. RUQ US to better delineate. Lap charles after significant resolution of hepatitis. Discussed with the patient and the team ( much appreciate Dr. Arora's input) and answered questions. With above assessment, I've recommended the followin. Continue current management 2. Adequate pain control (patient likely has low threshold for pain and will require larger than normal doses) 3. Multidisciplinary discussion 4. If no surgery or endoscopic intervention planned, the patient may be able to take orals until procedure is planned 5. Likely will need laparoscopic cholecystectomy in a few weeks when hepatitis is improved 6. Monitor LFTs 7. RUQ US today Thank you very much for having me involved in the care of this very pleasant patient and wonderful family. If you have any questions, please feel free to contact me at [phone]. Nature of presenting problem: High severity Please note that, given the extensive number of diagnoses or management options , the extensive amount and/or complexity of data needed to be reviewed ( including more than 50 pages of outside records and outside ultrasound, chest x- ray and CT scan of the abdomen and pelvis), and high risk of complications and/ or morbidity or mortality, this qualifies as high complexity type of decision- making. Disclaimer: Inadvertent spelling and grammatical errors are likely due to EHR/ dictation software use and do not reflect on the quality of delivered patient care. Also, please note that the electronic time recorded on this node does not necessarily reflect the actual time of the visit. Updated clinical summary: A very-pleasant but unfortunate 46-year-old lady with multiple comorbidities, admitted with active hepatitis B infection and possible acute cholecystitis. Comorbidities: 1. Active hepatitis B infection 2. Gallbladder wall thickening in the setting of #1 above, possibly indicating acute cholecystitis 3. Intravenous drug abuse (drug screen positive for opiates, amphetamines at [facility] March 2017) 4. Hypertension 5. Urinary tract infection 6. 4 Subjective: No major events or complaints; still with abd pain and under semi-adequate control with medications; feeling the same than the last few days and still fairly emotional during the discussions; no n/v/d; no sob or cp; + flatus; + BM ; minimal activity Objective: Vitals: See below I's & O's: See below Exam: GENERAL: On exam, the patient was lying in bed and appeared to be comfortable and in no acute distress. Today she was still emotional during the conversation. ABDOMEN: Soft, minimally to no tenderness to palpation in the right upper quadrant and no tenderness in the rest of the abdominal cavity, and nondistended. There are no peritoneal signs or guarding. SKIN: Skin appears to be pink and feels warm to touch. NEUROLOGIC: Patient is awake, alert, and follows commands appropriately. Labs: See below Exam/Review of Systems Vital Signs Vitals Vital Signs Date Time Temp Pulse Resp B/P Pulse Ox O2 Delivery O2 Flow Rate FiO2 04/19/17 07:26 98.4 73 18 138/77 97 04/17/17 23:00 Room Air Intake and Output 04/18/17 04/18/17 04/19/17 15:00 23:00 07:00 Intake Total 760 ml 650 ml Balance 760 ml 650 ml Results Result Diagram: 04/19/17 0443 04/19/17 0443 MILI MORELAND M.D. Apr 19, 2017 08:00
[2017-04-19 12:00] VITALS: BP 188/103; PULSE 75; RESP 18
--- NOTE | 2017-04-19 13:09 | CONS ---
Date/Time of Note Date/Time of Note DATE: 04/19/17 TIME: 13:08 Assessment/Plan Assessment/Plan Chief Complaint/Hosp Course No acute changes. Patient is awake, eating, no n/v/d, no fevers, nad ANTIMICROBIAL: Levaquin, Flagyl PHYSICAL EXAMINATION: GENERAL: This is a well-developed, well-nourished, middle-aged woman who is in no distress. HEENT: Head atraumatic, normocephalic. Sclerae anicteric. Buccal mucosa dry. NECK: Supple. CHEST: Rise symmetrical. Breath sounds diminished at the bases. ABDOMEN: Soft, bowel sounds hypoactive. EXTREMITIES: Without cyanosis. ASSESSMENT: 1. Right upper quadrant abdominal pain with abnormal liver function tests, questionable acute hepatitis. 2. Cholecystitis 3. Hypertension. 4. Drug abuse. 5. Opiate and drug-seeking behavior. PLAN: Patient remains stable, wbc normalized, continue abx, f/u surgical/GI rec- s [facility] staff Problems: Consultation Date/Type/Reason Admit Date/Time Apr 11, 2017 at 14:15 Initial Consult Date 04/12/17 Type of Consultation: ID Referring Provider: LUCIANO MAIER Exam/Review of Systems Vital Signs Vitals Vital Signs Date Time Temp Pulse Resp B/P Pulse Ox O2 Delivery O2 Flow Rate FiO2 04/19/17 12:00 97.6 75 18 188/103 96 Room Air Intake and Output 04/18/17 04/18/17 04/19/17 14:59 22:59 06:59 Intake Total 760 ml 650 ml Balance 760 ml 650 ml Results Result Diagram: 04/19/17 0443 04/19/17 0443 Results 24 hrs Laboratory Tests Test 04/19/17 04:43 White Blood Count 6.1 Red Blood Count 3.99 L Hemoglobin 11.4 L Hematocrit 33.7 L Mean Corpuscular Volume 84.5 Mean Corpuscular Hemoglobin 28.6 L Mean Corpuscular Hemoglobin Concent 33.8 Red Cell Distribution Width 16.5 H Platelet Count 289 Mean Platelet Volume 11.4 H Neutrophils % 50.4 Lymphocytes % 38.7 Monocytes % 8.6 Eosinophils % 1.2 Basophils % 0.8 Nucleated Red Blood Cells % 0.0 Neutrophils # (Manual) 3 Lymphocytes # 2.3 Monocytes # 0.5 Eosinophils # 0.1 Basophils # 0.1 Nucleated Red Blood Cells # 0.0 Sodium Level 136 Potassium Level 3.7 Chloride Level 102 Carbon Dioxide Level 28 Anion Gap 10 Blood Urea Nitrogen 7 Creatinine 0.71 Glucose Level 99 Calcium Level 8.6 Total Bilirubin 4.4 H Direct Bilirubin 3.30 H Indirect Bilirubin 1.1 Aspartate Amino Transf (AST/SGOT) 924 H Alanine Aminotransferase (ALT/SGPT) 967 H Alkaline Phosphatase 205 H Total Protein 6.5 Albumin 2.8 L Globulin 3.70 H Albumin/Globulin Ratio 0.75 Medications Medications Current Medications Acetaminophen (Tylenol Tab) 650 mg Q6H PRN PO PAIN LEVEL 1-3 OR FEVER; Start at 15:30 Docusate Sodium (Colace) 100 mg Q12H PRN PO CONSTIPATION; Start 04/11/17 at 15: 30 Magnesium Hydroxide (Milk Of Mag) 30 ml DAILY PRN PO CONSTIPATION; Start at 15:30 Sodium Biphosphate/ Sodium Phosphate (Fleet Enema) 133 ml DAILY PRN [place] CONSTIPATION; Start 04/11/17 at 15:30 Nitroglycerin (Nitroglycerin (Sl Tab) 0.4 Mg) 1 tab Q5M PRN SL ANGINA; Start at 15:30 Hydromorphone HCl (Dilaudid) 0.5 mg Q3H PRN IV PAIN Last administered on 11:58; Admin Dose 0.5 MG; Start 04/14/17 at 12:30 Levofloxacin (Levaquin) 500 mg DAILY@06 PO Last administered on 04/19/17 06:10 ; Admin Dose 500 MG; Start 04/17/17 at 06:00 Metronidazole (Flagyl) 500 mg Q8 PO Last administered on 04/19/17 06:10; Admin Dose 500 MG; Start 04/16/17 at 15:00 Alprazolam (Xanax) 0.25 mg Q8H PRN PO ANXIETY Last administered on 04/19/17 04 :51; Admin Dose 0.25 MG; Start 04/16/17 at 21:30 Hydralazine HCl (Apresoline) 10 mg Q6H PRN IV SBP >160 Last administered on 21:42; Admin Dose 10 MG; Start 04/16/17 at 23:30 Zolpidem Tartrate (Ambien) 10 mg HS PRN PO INSOMNIA Last administered on 22:13; Admin Dose 10 MG; Start 04/17/17 at 21:30 Acetaminophen/ Hydrocodone Bitart ([place] (7.5-325)) 1 tab Q6H PRN PO PAIN Last administered on 04/19/17 00:10; Admin Dose 1 TAB; Start 04/19/17 at 00:00 Prochlorperazine (Compazine Inj) 5 mg Q6H PRN IV NAUSEA AND/OR VOMITING; Start 04/19/17 at 11:59 Ondansetron HCl (Zofran Inj) 4 mg Q4H PRN IV NAUSEA AND/OR VOMITING; Start at 13:30 HORTENSIA RICO NP Apr 19, 2017 13:09
[2017-04-19 14:00] VITALS: BP 144/92; RESP 19
--- NOTE | 2017-04-19 14:05 | RADRPT ---
PROCEDURE: US Abdomen (right upper quadrant). CLINICAL INDICATION: Right upper quadrant abdomen pain. TECHNIQUE: Multiple real-time longitudinal and transverse images of the right upper quadrant of th e abdomen were acquired utilizing a curved array transducer. Images were reviewed on a high-resoluti on PACS workstation. COMPARISON: Nuclear medicine hepatobiliary scan dated 04/16/2017. MRCP dated 04/12/2017. FINDINGS: The liver is normal in size and normal in echogenicity. There is no focal hepatic lesion. Color Doppler and pulsed Doppler sonography demonstrate normal a ntegrade flow in the portal vein. Multiple gallstones are present in the gallbladder and there is gallbladder wall thickening measurin g 3.9 mm. There is no fluid around the gallbladder. The bile ducts are normal with the common bile duct measuring 4.1 mm in diameter. The visualized portions of the pancreas are unremarkable with obscuration of the tail of the pancrea s. No free fluid is present. The right kidney measures 11.3 x 5.7 cm. There is normal echogenicity of the right kidney. There is mild right hydronephrosis with no obstructing lesion visualized. There is no right renal mass or calculus IMPRESSION: 1. Gallstones in the gallbladder and gallbladder wall thickening. This may indicate cholecystitis. Clinical correlation is advised. 2. Mild right hydronephrosis with no obstructing lesion visualized. Clinical correlation is advise d. 3. Otherwise unremarkable study the RPTAT: QQ .Daljit Fonseca MD, Date Time Electronically viewed and signed by .Daljit Fonseca MD, MD on 04/19/2017 14:04 .R/
[2017-04-19 19:26] VITALS: BP 137/83
--- NOTE | 2017-04-19 19:58 | PN ---
Date/Time of Note Date/Time of Note DATE: 04/19/17 TIME: 19:55 Assessment/Plan VTE Prophylaxis VTE Prophylaxis Intervention: SCD's Lines/Catheters [facility]from [facility] Saline Lock Urinary Cath still in place: No Assessment/Plan Assessment/Plan Assessment * Right upper quadrant pain/abnormal liver function tests with hepatocellular pattern * Acute hepatitis B * Cholelithiasis, no evidence of choledocholithiasis * Polysubstance abuse/IV drug abuse * History of hypertension * Opiate seeking behavior * Anxiety Plan * Continue present regimen * Advance diet 2 g sodium low-fat * Monitor liver function tests * The for cholecystectomy until resolution of acute hepatitis * Consider tapering opioids or pain management consultation Subjective Subjective 24 Hr Interval Summary Free Text/Dictation * Course reviewed with RN * Patient seen and examined * Complaining of epigastric and right upper quadrant , "worse than ever" * Tolerating liquid diet * 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" as if they were using drugs * Hepatitis serologies consistent with acute hepatitis B * Suggest holding off on cholecystectomy until fully recovered from acute hepatitis Exam Constitutional: alert, frail, jaundiced, lethargic (received Ativan) Neck: non-tender, supple Respiratory: clear to auscultation, normal air movement Cardiovascular: nl pulses, regular rate and rhythm Gastrointestinal: soft, moderately tender epigastrium and right upper quadrant area No rebound or guarding Extremities: normal pulses Neurological: nl mental status, nl speech Skin: nl turgor, No rash or lesions Exam/Review of Systems Vital Signs Vitals Vital Signs Date Time Temp Pulse Resp B/P Pulse Ox O2 Delivery O2 Flow Rate FiO2 04/19/17 19:26 137/83 04/19/17 14:00 97.9 76 19 96 04/19/17 12:00 Room Air Intake and Output 04/18/17 04/18/17 04/19/17 15:00 23:00 07:00 Intake Total 760 ml 650 ml Balance 760 ml 650 ml Results Result Diagram: 04/19/17 0443 04/19/17 0443 Results 24 hrs Laboratory Tests Test 04/19/17 04:43 White Blood Count 6.1 Red Blood Count 3.99 L Hemoglobin 11.4 L Hematocrit 33.7 L Mean Corpuscular Volume 84.5 Mean Corpuscular Hemoglobin 28.6 L Mean Corpuscular Hemoglobin Concent 33.8 Red Cell Distribution Width 16.5 H Platelet Count 289 Mean Platelet Volume 11.4 H Neutrophils % 50.4 Lymphocytes % 38.7 Monocytes % 8.6 Eosinophils % 1.2 Basophils % 0.8 Nucleated Red Blood Cells % 0.0 Neutrophils # (Manual) 3 Lymphocytes # 2.3 Monocytes # 0.5 Eosinophils # 0.1 Basophils # 0.1 Nucleated Red Blood Cells # 0.0 Sodium Level 136 Potassium Level 3.7 Chloride Level 102 Carbon Dioxide Level 28 Anion Gap 10 Blood Urea Nitrogen 7 Creatinine 0.71 Glucose Level 99 Calcium Level 8.6 Total Bilirubin 4.4 H Direct Bilirubin 3.30 H Indirect Bilirubin 1.1 Aspartate Amino Transf (AST/SGOT) 924 H Alanine Aminotransferase (ALT/SGPT) 967 H Alkaline Phosphatase 205 H Total Protein 6.5 Albumin 2.8 L Globulin 3.70 H Albumin/Globulin Ratio 0.75 Medications Medications Current Medications Acetaminophen (Tylenol Tab) 650 mg Q6H PRN PO PAIN LEVEL 1-3 OR FEVER; Start at 15:30 Docusate Sodium (Colace) 100 mg Q12H PRN PO CONSTIPATION; Start 04/11/17 at 15: 30 Magnesium Hydroxide (Milk Of Mag) 30 ml DAILY PRN PO CONSTIPATION; Start at 15:30 Sodium Biphosphate/ Sodium Phosphate (Fleet Enema) 133 ml DAILY PRN [place] CONSTIPATION; Start 04/11/17 at 15:30 Nitroglycerin (Nitroglycerin (Sl Tab) 0.4 Mg) 1 tab Q5M PRN SL ANGINA; Start at 15:30 Hydromorphone HCl (Dilaudid) 0.5 mg Q3H PRN IV PAIN Last administered on 18:04; Admin Dose 0.5 MG; Start 04/14/17 at 12:30 Levofloxacin (Levaquin) 500 mg DAILY@06 PO Last administered on 04/19/17 06:10 ; Admin Dose 500 MG; Start 04/17/17 at 06:00 Metronidazole (Flagyl) 500 mg Q8 PO Last administered on 04/19/17 14:44; Admin Dose 500 MG; Start 04/16/17 at 15:00 Alprazolam (Xanax) 0.25 mg Q8H PRN PO ANXIETY Last administered on 04/19/17 04 :51; Admin Dose 0.25 MG; Start 04/16/17 at 21:30 Hydralazine HCl (Apresoline) 10 mg Q6H PRN IV SBP >160 Last administered on 21:42; Admin Dose 10 MG; Start 04/16/17 at 23:30 Zolpidem Tartrate (Ambien) 10 mg HS PRN PO INSOMNIA Last administered on 22:13; Admin Dose 10 MG; Start 04/17/17 at 21:30 Acetaminophen/ Hydrocodone Bitart ([place] (7.5-325)) 1 tab Q6H PRN PO PAIN Last administered on 04/19/17 00:10; Admin Dose 1 TAB; Start 04/19/17 at 00:00 Prochlorperazine (Compazine Inj) 5 mg Q6H PRN IV NAUSEA AND/OR VOMITING; Start 04/19/17 at 11:59 Ondansetron HCl (Zofran Inj) 4 mg Q4H PRN IV NAUSEA AND/OR VOMITING Last administered on 04/19/17 19:23; Admin Dose 4 MG; Start 04/19/17 at 13:30 Clonidine (Catapres) 0.1 mg Q6H PRN PO sbp>160; Start 04/19/17 at 13:30 DEEPAK SELLERS MD Apr 19, 2017 19:58
[2017-04-19 21:00] VITALS: BP 137/83; RESP 20
[2017-04-19] MEDS: NACL 0.9% 3 ML SYG IV SCH (21:21)
[2017-04-20] MEDS: PROCHLORPERAZINE 10 MG INJ IV PRN ×2 (00:07→19:38)
[2017-04-20] MEDS: HYDROmorphONE 1 MG/ML SYG IV PRN ×6 (00:08→21:01)
[2017-04-20] MEDS: ZOLPIDEM 5 MG TAB PO PRN ×2 (02:00→22:12)
[2017-04-20] MEDS: HYDROCODONE/APAP (7.5/325) TAB PO PRN ×3 (02:33→19:11)
[2017-04-20 03:51] VITALS: BP 130/73; RESP 20
[2017-04-20] MEDS: ONDANSETRON 4 MG INJ IV PRN ×3 (05:01→18:12)
[2017-04-20] MEDS: metroNIDAZOLE 500 MG TAB PO SCH ×3 (05:01→21:01)
[2017-04-20] MEDS: LEVOFLOXACIN 500 MG TAB PO SCH (05:01)
[2017-04-20 05:46] LABS: ALBUMIN 2.9 g/dl (3.3-4.9); ALBUMIN/GLOBULIN RATIO 0.7; BILIRUBIN,DIRECT 3.4 mg/dl (0.00-0.20); BILIRUBIN,TOTAL 4.4 mg/dl (0.2-1.3); CREATININE 0.71 mg/dl (0.44-1.00)
[2017-04-20 07:33] VITALS: BP 126/75; RESP 19
[2017-04-20] MEDS: ALPRAZOLAM 0.25 MG TAB PO PRN (12:48)
[2017-04-20 14:00] VITALS: BP 121/61; RESP 19
--- NOTE | 2017-04-20 14:19 | CONS ---
Date/Time of Note Date/Time of Note DATE: 04/20/17 TIME: 14:18 Assessment/Plan Assessment/Plan Chief Complaint/Hosp Course No acute changes. No acute changes, awake, looks comfortable, afebrile ANTIMICROBIAL: Filemonaqisa, Robin PHYSICAL EXAMINATION: GENERAL: This is a well-developed, well-nourished, middle-aged woman who is in no distress. HEENT: Head atraumatic, normocephalic. Sclerae anicteric. Buccal mucosa dry. NECK: Supple. CHEST: Rise symmetrical. Breath sounds diminished at the bases. ABDOMEN: Soft, bowel sounds hypoactive. EXTREMITIES: Without cyanosis. ASSESSMENT: 1. HBV 2. Cholecystitis 3. Hypertension. 4. Drug abuse. 5. Opiate and drug-seeking behavior. PLAN: Patient remains stable, continue abx, surgical/GI rec-s [facility] staff Problems: Consultation Date/Type/Reason Admit Date/Time Apr 11, 2017 at 14:15 Initial Consult Date 04/12/17 Type of Consultation: ID Referring Provider: LUCIANO MAIER Exam/Review of Systems Vital Signs Vitals Vital Signs Date Time Temp Pulse Resp B/P Pulse Ox O2 Delivery O2 Flow Rate FiO2 04/20/17 07:33 98.0 71 19 126/75 98 04/19/17 12:00 Room Air Results Result Diagram: 04/19/17 0443 04/20/17 0437 Results 24 hrs Laboratory Tests Test 04/20/17 04:37 Sodium Level 141 Potassium Level 4.0 Chloride Level 100 Carbon Dioxide Level 28 Anion Gap 17 #H Blood Urea Nitrogen 9 Creatinine 0.71 Glucose Level 89 Calcium Level 9.0 Total Bilirubin 4.4 H Direct Bilirubin 3.40 H Indirect Bilirubin 1.0 Aspartate Amino Transf (AST/SGOT) 726 H Alanine Aminotransferase (ALT/SGPT) 774 H Alkaline Phosphatase 216 H Total Protein 7.0 Albumin 2.9 L Globulin 4.10 H Albumin/Globulin Ratio 0.70 Medications Medications Current Medications Acetaminophen (Tylenol Tab) 650 mg Q6H PRN PO PAIN LEVEL 1-3 OR FEVER; Start at 15:30 Docusate Sodium (Colace) 100 mg Q12H PRN PO CONSTIPATION; Start 04/11/17 at 15: 30 Magnesium Hydroxide (Milk Of Mag) 30 ml DAILY PRN PO CONSTIPATION; Start at 15:30 Sodium Biphosphate/ Sodium Phosphate (Fleet Enema) 133 ml DAILY PRN [place] CONSTIPATION; Start 04/11/17 at 15:30 Nitroglycerin (Nitroglycerin (Sl Tab) 0.4 Mg) 1 tab Q5M PRN SL ANGINA; Start at 15:30 Hydromorphone HCl (Dilaudid) 0.5 mg Q3H PRN IV PAIN Last administered on 14:15; Admin Dose 0.5 MG; Start 04/14/17 at 12:30 Levofloxacin (Levaquin) 500 mg DAILY@06 PO Last administered on 04/20/17 05:01 ; Admin Dose 500 MG; Start 04/17/17 at 06:00 Metronidazole (Flagyl) 500 mg Q8 PO Last administered on 04/20/17 14:14; Admin Dose 500 MG; Start 04/16/17 at 15:00 Alprazolam (Xanax) 0.25 mg Q8H PRN PO ANXIETY Last administered on 04/20/17 12 :48; Admin Dose 0.25 MG; Start 04/16/17 at 21:30 Hydralazine HCl (Apresoline) 10 mg Q6H PRN IV SBP >160 Last administered on 21:42; Admin Dose 10 MG; Start 04/16/17 at 23:30 Zolpidem Tartrate (Ambien) 10 mg HS PRN PO INSOMNIA Last administered on 02:00; Admin Dose 10 MG; Start 04/17/17 at 21:30 Acetaminophen/ Hydrocodone Bitart ([place] (7.5-325)) 1 tab Q6H PRN PO PAIN Last administered on 04/20/17 12:21; Admin Dose 1 TAB; Start 04/19/17 at 00:00 Prochlorperazine (Compazine Inj) 5 mg Q6H PRN IV NAUSEA AND/OR VOMITING Last administered on 04/20/17 00:07; Admin Dose 5 MG; Start 04/19/17 at 11:59 Ondansetron HCl (Zofran Inj) 4 mg Q4H PRN IV NAUSEA AND/OR VOMITING Last administered on 04/20/17 12:21; Admin Dose 4 MG; Start 04/19/17 at 13:30 Clonidine (Catapres) 0.1 mg Q6H PRN PO sbp>160; Start 04/19/17 at 13:30 HORTENSIA RICO NP Apr 20, 2017 14:19
--- NOTE | 2017-04-20 15:04 | PN ---
Date/Time of Note Date/Time of Note DATE: 04/20/17 TIME: 14:37 Assessment/Plan VTE Prophylaxis VTE Prophylaxis Intervention: SCD's Lines/Catheters IV Catheter Type (from Nrsg): Saline Lock Urinary Cath still in place: No Assessment/Plan Assessment/Plan 1. Active hepatitis B infection, from IVDA, follow up with enzymes 2. Gallbladder wall thickening in the setting of #1 above, possibly indicating acute cholecystitis, on antibiotics 3. Polysubstance abuse with IVDA with heroin, amphetamines, alcohol, and others 4. Hypertension, stable 5. Urinary tract infection, on levaquin 6. 4 7. Mild right hydronephrosis, no obvious obstruction, prob UTI related 8. DVT prophylaxis: SCD Subjective 24 Hr Interval Summary Free Text/Dictation still complains of abdominal pain, but no nausea or vomiting, tolerates diet. afebrile Exam/Review of Systems Vital Signs Vitals Vital Signs Date Time Temp Pulse Resp B/P Pulse Ox O2 Delivery O2 Flow Rate FiO2 04/20/17 07:33 98.0 71 19 126/75 98 04/19/17 12:00 Room Air Exam Constitutional: alert, oriented, well developed Psych: nl mood/affect, no complaints Head: atraumatic, normocephalic Eyes: EOMI, PERRL, nl conjunctiva, nl lids ENMT: nl external ears & nose, nl lips & teeth, nl nasal mucosa & septum Neck: non-tender, supple Respiratory: clear to auscultation, normal air movement, No congested cough, No crackles/rales, No diminished breath sounds, No intercostal retraction, No labored breathing, No other, No respirations, No tactile fremitus, No wheezing Cardiovascular: nl pulses, regular rate and rhythm, No S3, No S4, No bruits, No diastolic murmur, No edema, No gallop, No irregular rhythm, No jugular venous distention (JVD), No murmurs/extra sounds, No other, No rub, No systolic murmur Gastrointestinal: hepatomegaly, soft, tender Musculoskeletal: nl extremities to inspection Extremities: normal pulses, No calf tenderness, No clubbing, No cyanosis, No edema, No other, No palpable cord, No pitting pedal edema, No tenderness Neurological: SUPERINTENDENT TESTS II-XII intact, nl mental status, nl speech, nl strength Skin: nl turgor Lymph: nl lymph nodes Results Result Diagram: 04/19/17 0443 04/20/17 0437 Results 24 hrs Laboratory Tests Test 04/20/17 04:37 Sodium Level 141 Potassium Level 4.0 Chloride Level 100 Carbon Dioxide Level 28 Anion Gap 17 #H Blood Urea Nitrogen 9 Creatinine 0.71 Glucose Level 89 Calcium Level 9.0 Total Bilirubin 4.4 H Direct Bilirubin 3.40 H Indirect Bilirubin 1.0 Aspartate Amino Transf (AST/SGOT) 726 H Alanine Aminotransferase (ALT/SGPT) 774 H Alkaline Phosphatase 216 H Total Protein 7.0 Albumin 2.9 L Globulin 4.10 H Albumin/Globulin Ratio 0.70 Medications Medications Current Medications Acetaminophen (Tylenol Tab) 650 mg Q6H PRN PO PAIN LEVEL 1-3 OR FEVER; Start at 15:30 Docusate Sodium (Colace) 100 mg Q12H PRN PO CONSTIPATION; Start 04/11/17 at 15: 30 Magnesium Hydroxide (Milk Of Mag) 30 ml DAILY PRN PO CONSTIPATION; Start at 15:30 Sodium Biphosphate/ Sodium Phosphate (Fleet Enema) 133 ml DAILY PRN [place] CONSTIPATION; Start 04/11/17 at 15:30 Nitroglycerin (Nitroglycerin (Sl Tab) 0.4 Mg) 1 tab Q5M PRN SL ANGINA; Start at 15:30 Hydromorphone HCl (Dilaudid) 0.5 mg Q3H PRN IV PAIN Last administered on 14:15; Admin Dose 0.5 MG; Start 04/14/17 at 12:30 Levofloxacin (Levaquin) 500 mg DAILY@06 PO Last administered on 04/20/17 05:01 ; Admin Dose 500 MG; Start 04/17/17 at 06:00 Metronidazole (Flagyl) 500 mg Q8 PO Last administered on 04/20/17 14:14; Admin Dose 500 MG; Start 04/16/17 at 15:00 Alprazolam (Xanax) 0.25 mg Q8H PRN PO ANXIETY Last administered on 04/20/17 12 :48; Admin Dose 0.25 MG; Start 04/16/17 at 21:30 Hydralazine HCl (Apresoline) 10 mg Q6H PRN IV SBP >160 Last administered on 21:42; Admin Dose 10 MG; Start 04/16/17 at 23:30 Zolpidem Tartrate (Ambien) 10 mg HS PRN PO INSOMNIA Last administered on 02:00; Admin Dose 10 MG; Start 04/17/17 at 21:30 Acetaminophen/ Hydrocodone Bitart ([place] (7.5-325)) 1 tab Q6H PRN PO PAIN Last administered on 04/20/17 12:21; Admin Dose 1 TAB; Start 04/19/17 at 00:00 Prochlorperazine (Compazine Inj) 5 mg Q6H PRN IV NAUSEA AND/OR VOMITING Last administered on 04/20/17 00:07; Admin Dose 5 MG; Start 04/19/17 at 11:59 Ondansetron HCl (Zofran Inj) 4 mg Q4H PRN IV NAUSEA AND/OR VOMITING Last administered on 04/20/17 12:21; Admin Dose 4 MG; Start 04/19/17 at 13:30 Clonidine (Catapres) 0.1 mg Q6H PRN PO sbp>160; Start 04/19/17 at 13:30 NIRU WRIGHT MD Apr 20, 2017 14:47
--- NOTE | 2017-04-20 18:33 | PN ---
Date/Time of Note Date/Time of Note DATE: 04/20/17 TIME: 18:28 Assessment/Plan VTE Prophylaxis VTE Prophylaxis Intervention: SCD's Lines/Catheters IV Catheter Type (from Nrs): Saline Lock Urinary Cath still in place: No Assessment/Plan Assessment/Plan Assessment * Right upper quadrant pain/abnormal liver function tests with hepatocellular pattern * Acute hepatitis B * Cholelithiasis, no evidence of choledocholithiasis * Polysubstance abuse/IV drug abuse * History of hypertension * Opiate seeking behavior * Anxiety Plan * Continue present regimen * Monitor liver function tests * Defer cholecystectomy until resolution of acute hepatitis * Consider tapering opioids or pain management consultation Subjective Subjective 24 Hr Interval Summary Free Text/Dictation * Course reviewed with RN * Patient seen and examined * Complaining of epigastric and right upper quadrant * Tolerating diet Exam Constitutional: alert, frail, jaundiced, lethargic (received Ativan) Neck: non-tender, supple Respiratory: clear to auscultation, normal air movement Cardiovascular: nl pulses, regular rate and rhythm Gastrointestinal: soft, moderately tender epigastrium and right upper quadrant area No rebound or guarding Extremities: normal pulses Neurological: nl mental status, nl speech Skin: nl turgor, No rash or lesions Exam/Review of Systems Vital Signs Vitals Vital Signs Date Time Temp Pulse Resp B/P Pulse Ox O2 Delivery O2 Flow Rate FiO2 04/20/17 14:00 98.0 78 19 121/61 98 04/19/17 12:00 Room Air Results Result Diagram: 04/19/17 0443 04/20/17 0437 Results 24 hrs Laboratory Tests Test 04/20/17 04:37 Sodium Level 141 Potassium Level 4.0 Chloride Level 100 Carbon Dioxide Level 28 Anion Gap 17 #H Blood Urea Nitrogen 9 Creatinine 0.71 Glucose Level 89 Calcium Level 9.0 Total Bilirubin 4.4 H Direct Bilirubin 3.40 H Indirect Bilirubin 1.0 Aspartate Amino Transf (AST/SGOT) 726 H Alanine Aminotransferase (ALT/SGPT) 774 H Alkaline Phosphatase 216 H Total Protein 7.0 Albumin 2.9 L Globulin 4.10 H Albumin/Globulin Ratio 0.70 Medications Medications Current Medications Acetaminophen (Tylenol Tab) 650 mg Q6H PRN PO PAIN LEVEL 1-3 OR FEVER; Start at 15:30 Docusate Sodium (Colace) 100 mg Q12H PRN PO CONSTIPATION; Start 04/11/17 at 15: 30 Magnesium Hydroxide (Milk Of Mag) 30 ml DAILY PRN PO CONSTIPATION; Start at 15:30 Sodium Biphosphate/ Sodium Phosphate (Fleet Enema) 133 ml DAILY PRN [place] CONSTIPATION; Start 04/11/17 at 15:30 Nitroglycerin (Nitroglycerin (Sl Tab) 0.4 Mg) 1 tab Q5M PRN SL ANGINA; Start at 15:30 Hydromorphone HCl (Dilaudid) 0.5 mg Q3H PRN IV PAIN Last administered on 17:14; Admin Dose 0.5 MG; Start 04/14/17 at 12:30 Levofloxacin (Levaquin) 500 mg DAILY@06 PO Last administered on 04/20/17 05:01 ; Admin Dose 500 MG; Start 04/17/17 at 06:00 Metronidazole (Flagyl) 500 mg Q8 PO Last administered on 04/20/17 14:14; Admin Dose 500 MG; Start 04/16/17 at 15:00 Alprazolam (Xanax) 0.25 mg Q8H PRN PO ANXIETY Last administered on 04/20/17 12 :48; Admin Dose 0.25 MG; Start 04/16/17 at 21:30 Hydralazine HCl (Apresoline) 10 mg Q6H PRN IV SBP >160 Last administered on 21:42; Admin Dose 10 MG; Start 04/16/17 at 23:30 Zolpidem Tartrate (Ambien) 10 mg HS PRN PO INSOMNIA Last administered on 02:00; Admin Dose 10 MG; Start 04/17/17 at 21:30 Acetaminophen/ Hydrocodone Bitart ([place] (7.5-325)) 1 tab Q6H PRN PO PAIN Last administered on 04/20/17 12:21; Admin Dose 1 TAB; Start 04/19/17 at 00:00 Prochlorperazine (Compazine Inj) 5 mg Q6H PRN IV NAUSEA AND/OR VOMITING Last administered on 04/20/17 00:07; Admin Dose 5 MG; Start 04/19/17 at 11:59 Ondansetron HCl (Zofran Inj) 4 mg Q4H PRN IV NAUSEA AND/OR VOMITING Last administered on 04/20/17 18:12; Admin Dose 4 MG; Start 04/19/17 at 13:30 Clonidine (Catapres) 0.1 mg Q6H PRN PO sbp>160; Start 04/19/17 at 13:30 DEEPAK SELLERS MD Apr 20, 2017 18:32
[2017-04-21] MEDS: HYDROmorphONE 1 MG/ML SYG IV PRN ×7 (00:45→23:11)
[2017-04-21] MEDS: ONDANSETRON 4 MG INJ IV PRN ×3 (00:45→18:43)
[2017-04-21] MEDS: NACL 0.9% 3 ML SYG IV SCH ×2 (00:45→04:10)
[2017-04-21] MEDS: PROCHLORPERAZINE 10 MG INJ IV PRN ×2 (04:40→21:37)
[2017-04-21 05:33] LABS: ALBUMIN/GLOBULIN RATIO 0.73; BILIRUBIN,DIRECT 2.5 mg/dl (0.00-0.20); BILIRUBIN,INDIRECT 0.9 mg/dl (0-1.1); BILIRUBIN,TOTAL 3.4 mg/dl (0.2-1.3); CALCIUM 9.2 mg/dl (8.4-10.2); CREATININE 0.82 mg/dl (0.44-1.00); POTASSIUM 4.2 mmol/L (3.5-5.1); TOTAL PROTEIN 7.1 g/dl (6.1-8.1)
[2017-04-21] MEDS: LEVOFLOXACIN 500 MG TAB PO SCH (05:55)
[2017-04-21] MEDS: metroNIDAZOLE 500 MG TAB PO SCH ×3 (05:55→21:34)
[2017-04-21 08:00] VITALS: BP 140/89; RESP 20
--- NOTE | 2017-04-21 15:45 | PN ---
Date/Time of Note Date/Time of Note DATE: 04/21/17 TIME: 15:22 Assessment/Plan VTE Prophylaxis VTE Prophylaxis Intervention: SCD's Lines/Catheters IV Catheter Type (from Nrs): Saline Lock Urinary Cath still in place: No Assessment/Plan Assessment/Plan 46-year-old female presented with abdominal pain and transaminitis of unclear etiology. Also cholecystitis on imaging. GI, gen surg already on consult. New hepatitis B (unlikely given + sAg and cAb) v other PLAN ID following abx as per ID gen surg following, surgical planning for lap charles in process cont to trend LFTs Subjective 24 Hr Interval Summary Free Text/Dictation Pt sleeping this AM Exam/Review of Systems Vital Signs Vitals Vital Signs Date Time Temp Pulse Resp B/P Pulse Ox O2 Delivery O2 Flow Rate FiO2 04/21/17 08:00 97.7 80 20 140/89 98 04/19/17 12:00 Room Air Intake and Output 04/20/17 04/20/17 04/21/17 15:00 23:00 07:00 Intake Total 400 ml 1380 ml 480 ml Output Total 600 ml Balance 400 ml 1380 ml -120 ml Exam nad resp nonlabored no abd distension no rashes no edema Results Result Diagram: 04/19/17 0443 04/21/17 0500 Results 24 hrs Laboratory Tests Test 04/21/17 05:00 Sodium Level 136 Potassium Level 4.2 Chloride Level 99 Carbon Dioxide Level 28 Anion Gap 13 Blood Urea Nitrogen 14 Creatinine 0.82 Glucose Level 108 Calcium Level 9.2 Total Bilirubin 3.4 H Direct Bilirubin 2.50 H Indirect Bilirubin 0.9 Aspartate Amino Transf (AST/SGOT) 694 H Alanine Aminotransferase (ALT/SGPT) 622 H Alkaline Phosphatase 200 H Total Protein 7.1 Albumin 3.0 L Globulin 4.10 H Albumin/Globulin Ratio 0.73 Medications Medications Current Medications Acetaminophen (Tylenol Tab) 650 mg Q6H PRN PO PAIN LEVEL 1-3 OR FEVER; Start at 15:30 Docusate Sodium (Colace) 100 mg Q12H PRN PO CONSTIPATION; Start 04/11/17 at 15: 30 Magnesium Hydroxide (Milk Of Mag) 30 ml DAILY PRN PO CONSTIPATION; Start at 15:30 Sodium Biphosphate/ Sodium Phosphate (Fleet Enema) 133 ml DAILY PRN [place] CONSTIPATION; Start 04/11/17 at 15:30 Nitroglycerin (Nitroglycerin (Sl Tab) 0.4 Mg) 1 tab Q5M PRN SL ANGINA; Start at 15:30 Hydromorphone HCl (Dilaudid) 0.5 mg Q3H PRN IV PAIN Last administered on 12:28; Admin Dose 0.5 MG; Start 04/14/17 at 12:30 Levofloxacin (Levaquin) 500 mg DAILY@06 PO Last administered on 04/21/17 05:55 ; Admin Dose 500 MG; Start 04/17/17 at 06:00 Metronidazole (Flagyl) 500 mg Q8 PO Last administered on 04/21/17 13:54; Admin Dose 500 MG; Start 04/16/17 at 15:00 Alprazolam (Xanax) 0.25 mg Q8H PRN PO ANXIETY Last administered on 04/20/17 12 :48; Admin Dose 0.25 MG; Start 04/16/17 at 21:30 Hydralazine HCl (Apresoline) 10 mg Q6H PRN IV SBP >160 Last administered on 21:42; Admin Dose 10 MG; Start 04/16/17 at 23:30 Zolpidem Tartrate (Ambien) 10 mg HS PRN PO INSOMNIA Last administered on 22:12; Admin Dose 10 MG; Start 04/17/17 at 21:30 Acetaminophen/ Hydrocodone Bitart ([place] (7.5-325)) 1 tab Q6H PRN PO PAIN Last administered on 04/20/17 19:11; Admin Dose 1 TAB; Start 04/19/17 at 00:00 Prochlorperazine (Compazine Inj) 5 mg Q6H PRN IV NAUSEA AND/OR VOMITING Last administered on 04/21/17 04:40; Admin Dose 5 MG; Start 04/19/17 at 11:59 Ondansetron HCl (Zofran Inj) 4 mg Q4H PRN IV NAUSEA AND/OR VOMITING Last administered on 04/21/17 12:28; Admin Dose 4 MG; Start 04/19/17 at 13:30 Clonidine (Catapres) 0.1 mg Q6H PRN PO sbp>160; Start 04/19/17 at 13:30 EZRA WATTS MD Apr 21, 2017 15:32
--- NOTE | 2017-04-21 18:14 | PN ---
Date/Time of Note Date/Time of Note DATE: 04/21/17 TIME: 18:11 Assessment/Plan VTE Prophylaxis VTE Prophylaxis Intervention: SCD's Lines/Catheters [facility] Saline Lock Urinary Cath still in place: No Assessment/Plan Assessment/Plan Assessment * Right upper quadrant pain/abnormal liver function tests with hepatocellular pattern * Acute hepatitis B * Cholelithiasis, no evidence of choledocholithiasis * Polysubstance abuse/IV drug abuse * History of hypertension * Opiate seeking behavior * Anxiety Plan * Continue present regimen * Monitor liver function tests * Defer cholecystectomy until resolution of acute hepatitis * Consider tapering opioids or pain management consultation * case discussed with Dr Arora * Further orders will depend clinical course Subjective 24 Hr Interval Summary Free Text/Dictation * course reviewed with RN * Patient seen and examined * No untoward incident overnight Exam/Review of Systems Vital Signs Vitals Vital Signs Date Time Temp Pulse Resp B/P Pulse Ox O2 Delivery O2 Flow Rate FiO2 04/21/17 08:00 97.7 80 20 140/89 98 04/19/17 12:00 Room Air Intake and Output 04/20/17 04/20/17 04/21/17 15:00 23:00 07:00 Intake Total 400 ml 1380 ml 480 ml Output Total 600 ml Balance 400 ml 1380 ml -120 ml Exam Constitutional: frail Head: normocephalic Eyes: nl conjunctiva Neck: non-tender, supple Respiratory: clear to auscultation, normal air movement Cardiovascular: nl pulses, regular rate and rhythm Gastrointestinal: non-tender, soft, No rebound or guarding Extremities: normal pulses Lymph: nl lymph nodes Results Result Diagram: 04/19/17 0443 04/21/17 0500 Results 24 hrs Laboratory Tests Test 04/21/17 05:00 Sodium Level 136 Potassium Level 4.2 Chloride Level 99 Carbon Dioxide Level 28 Anion Gap 13 Blood Urea Nitrogen 14 Creatinine 0.82 Glucose Level 108 Calcium Level 9.2 Total Bilirubin 3.4 H Direct Bilirubin 2.50 H Indirect Bilirubin 0.9 Aspartate Amino Transf (AST/SGOT) 694 H Alanine Aminotransferase (ALT/SGPT) 622 H Alkaline Phosphatase 200 H Total Protein 7.1 Albumin 3.0 L Globulin 4.10 H Albumin/Globulin Ratio 0.73 Medications Medications Current Medications Acetaminophen (Tylenol Tab) 650 mg Q6H PRN PO PAIN LEVEL 1-3 OR FEVER; Start at 15:30 Docusate Sodium (Colace) 100 mg Q12H PRN PO CONSTIPATION; Start 04/11/17 at 15: 30 Magnesium Hydroxide (Milk Of Mag) 30 ml DAILY PRN PO CONSTIPATION; Start at 15:30 Sodium Biphosphate/ Sodium Phosphate (Fleet Enema) 133 ml DAILY PRN [place] CONSTIPATION; Start 04/11/17 at 15:30 Nitroglycerin (Nitroglycerin (Sl Tab) 0.4 Mg) 1 tab Q5M PRN SL ANGINA; Start at 15:30 Hydromorphone HCl (Dilaudid) 0.5 mg Q3H PRN IV PAIN Last administered on 15:43; Admin Dose 0.5 MG; Start 04/14/17 at 12:30 Levofloxacin (Levaquin) 500 mg DAILY@06 PO Last administered on 04/21/17 05:55 ; Admin Dose 500 MG; Start 04/17/17 at 06:00 Metronidazole (Flagyl) 500 mg Q8 PO Last administered on 04/21/17 13:54; Admin Dose 500 MG; Start 04/16/17 at 15:00 Alprazolam (Xanax) 0.25 mg Q8H PRN PO ANXIETY Last administered on 04/20/17 12 :48; Admin Dose 0.25 MG; Start 04/16/17 at 21:30 Zolpidem Tartrate (Ambien) 10 mg HS PRN PO INSOMNIA Last administered on 22:12; Admin Dose 10 MG; Start 04/17/17 at 21:30 Acetaminophen/ Hydrocodone Bitart ([place] (7.5-325)) 1 tab Q6H PRN PO PAIN Last administered on 04/20/17 19:11; Admin Dose 1 TAB; Start 04/19/17 at 00:00 Prochlorperazine (Compazine Inj) 5 mg Q6H PRN IV NAUSEA AND/OR VOMITING Last administered on 04/21/17 04:40; Admin Dose 5 MG; Start 04/19/17 at 11:59 Ondansetron HCl (Zofran Inj) 4 mg Q4H PRN IV NAUSEA AND/OR VOMITING Last administered on 04/21/17 12:28; Admin Dose 4 MG; Start 04/19/17 at 13:30 NAVEED IRIZARRY NP Apr 21, 2017 18:14
[2017-04-21] MEDS: HYDROCODONE/APAP (7.5/325) TAB PO PRN (18:30)
[2017-04-21] MEDS: ALPRAZOLAM 0.25 MG TAB PO PRN (19:53)
[2017-04-21 20:13] VITALS: BP 153/79; RESP 20
[2017-04-22] MEDS: HYDROmorphONE 1 MG/ML SYG IV PRN ×7 (01:59→21:50)
[2017-04-22] MEDS: ONDANSETRON 4 MG INJ IV PRN ×5 (02:22→23:22)
[2017-04-22] MEDS: ZOLPIDEM 5 MG TAB PO PRN ×2 (02:50→21:07)
[2017-04-22 02:52] VITALS: BP 117/65; RESP 19
[2017-04-22] MEDS: LEVOFLOXACIN 500 MG TAB PO SCH (05:15)
[2017-04-22] MEDS: metroNIDAZOLE 500 MG TAB PO SCH ×3 (05:15→21:07)
[2017-04-22 07:17] LABS: ALBUMIN 3.3 g/dl (3.3-4.9); ALBUMIN/GLOBULIN RATIO 0.73; BILIRUBIN,DIRECT 1.7 mg/dl (0.00-0.20); BILIRUBIN,TOTAL 2.7 mg/dl (0.2-1.3); CALCIUM 9.5 mg/dl (8.4-10.2); CREATININE 0.7 mg/dl (0.44-1.00); POTASSIUM 4.3 mmol/L (3.5-5.1); TOTAL PROTEIN 7.8 g/dl (6.1-8.1)
[2017-04-22 07:57] VITALS: BP 129/70; RESP 22
[2017-04-22] MEDS: HYDROCODONE/APAP (7.5/325) TAB PO PRN ×2 (11:39→17:59)
--- NOTE | 2017-04-22 11:48 | PN ---
Date/Time of Note Date/Time of Note DATE: 04/22/17 TIME: 11:46 Assessment/Plan VTE Prophylaxis VTE Prophylaxis Intervention: ambulation Lines/Catheters IV Catheter Type (from Nrs): Saline Lock Urinary Cath still in place: No Assessment/Plan Assessment/Plan ssessment * Right upper quadrant pain/abnormal liver function tests with hepatocellular pattern * Acute hepatitis B * Cholelithiasis, no evidence of choledocholithiasis * Polysubstance abuse/IV drug abuse * History of hypertension * Opiate seeking behavior * Anxiety Plan * Continue present regimen * Monitor liver function tests * Defer cholecystectomy until resolution of acute hepatitis * Consider tapering opioids or pain management consultation * case discussed with Dr Arora * Further orders will depend clinical course Subjective 24 Hr Interval Summary Free Text/Dictation * Course reviewed with RN * Patient seen and examined * No untoward events overnight Exam/Review of Systems Vital Signs Vitals Vital Signs Date Time Temp Pulse Resp B/P Pulse Ox O2 Delivery O2 Flow Rate FiO2 04/22/17 07:57 97.7 97 22 129/70 100 04/19/17 12:00 Room Air Intake and Output 04/21/17 04/21/17 04/22/17 15:00 23:00 07:00 Intake Total 1200 ml 700 ml Balance 1200 ml 700 ml Exam Constitutional: alert, oriented, well developed Neck: non-tender, supple Respiratory: clear to auscultation, normal air movement Cardiovascular: nl pulses, regular rate and rhythm Gastrointestinal: bowel sounds, non-tender, soft Musculoskeletal: nl extremities to inspection, nl gait and stance Extremities: normal pulses Results Result Diagram: 04/19/17 0443 04/22/17 0515 Results 24 hrs Laboratory Tests Test 04/22/17 05:15 Sodium Level 135 Potassium Level 4.3 Chloride Level 95 L Carbon Dioxide Level 30 Anion Gap 14 Blood Urea Nitrogen 14 Creatinine 0.70 Glucose Level 92 Calcium Level 9.5 Total Bilirubin 2.7 H Direct Bilirubin 1.70 #H Indirect Bilirubin 1.0 Aspartate Amino Transf (AST/SGOT) 656 H Alanine Aminotransferase (ALT/SGPT) 524 H Alkaline Phosphatase 241 H Total Protein 7.8 Albumin 3.3 Globulin 4.50 H Albumin/Globulin Ratio 0.73 Medications Medications Current Medications Acetaminophen (Tylenol Tab) 650 mg Q6H PRN PO PAIN LEVEL 1-3 OR FEVER; Start at 15:30 Docusate Sodium (Colace) 100 mg Q12H PRN PO CONSTIPATION; Start 04/11/17 at 15: 30 Magnesium Hydroxide (Milk Of Mag) 30 ml DAILY PRN PO CONSTIPATION Last administered on 04/22/17 01:56; Admin Dose 30 ML; Start 04/11/17 at 15:30 Sodium Biphosphate/ Sodium Phosphate (Fleet Enema) 133 ml DAILY PRN [place] CONSTIPATION; Start 04/11/17 at 15:30 Nitroglycerin (Nitroglycerin (Sl Tab) 0.4 Mg) 1 tab Q5M PRN SL ANGINA; Start at 15:30 Hydromorphone HCl (Dilaudid) 0.5 mg Q3H PRN IV PAIN Last administered on 09:42; Admin Dose 0.5 MG; Start 04/14/17 at 12:30 Levofloxacin (Levaquin) 500 mg DAILY@06 PO Last administered on 04/22/17 05:15 ; Admin Dose 500 MG; Start 04/17/17 at 06:00 Metronidazole (Flagyl) 500 mg Q8 PO Last administered on 04/22/17 05:15; Admin Dose 500 MG; Start 04/16/17 at 15:00 Alprazolam (Xanax) 0.25 mg Q8H PRN PO ANXIETY Last administered on 04/21/17 19 :53; Admin Dose 0.25 MG; Start 04/16/17 at 21:30 Zolpidem Tartrate (Ambien) 10 mg HS PRN PO INSOMNIA Last administered on 02:50; Admin Dose 10 MG; Start 04/17/17 at 21:30 Acetaminophen/ Hydrocodone Bitart ([place] (7.5-325)) 1 tab Q6H PRN PO PAIN Last administered on 04/22/17 11:39; Admin Dose 1 TAB; Start 04/19/17 at 00:00 Prochlorperazine (Compazine Inj) 5 mg Q6H PRN IV NAUSEA AND/OR VOMITING Last administered on 04/21/17 21:37; Admin Dose 5 MG; Start 04/19/17 at 11:59 Ondansetron HCl (Zofran Inj) 4 mg Q4H PRN IV NAUSEA AND/OR VOMITING Last administered on 8/27/17at 10:01; Admin Dose 4 MG; Start 04/19/17 at 13:30 NAVEED IRIZARRY NP Apr 22, 2017 11:48
--- NOTE | 2017-04-22 12:15 | PN ---
Date/Time of Note Date/Time of Note DATE: 04/22/17 TIME: 12:14 Assessment/Plan VTE Prophylaxis VTE Prophylaxis Intervention: SCD's Lines/Catheters IV Catheter Type (from Nrs): Saline Lock Urinary Cath still in place: No Assessment/Plan Assessment/Plan 46-year-old female presented with abdominal pain and transaminitis of unclear etiology. Also cholecystitis on imaging. GI, gen surg already on consult. New hepatitis B (unlikely given + sAg and cAb) v other PLAN ID following abx as per ID gen surg following, surgical planning for lap charles in process cont to trend LFTs Subjective 24 Hr Interval Summary Free Text/Dictation Pt sharing hospital bed with significant other this AM Exam/Review of Systems Vital Signs Vitals Vital Signs Date Time Temp Pulse Resp B/P Pulse Ox O2 Delivery O2 Flow Rate FiO2 04/22/17 07:57 97.7 97 22 129/70 100 04/19/17 12:00 Room Air Intake and Output 04/21/17 04/21/17 04/22/17 15:00 23:00 07:00 Intake Total 1200 ml 700 ml Balance 1200 ml 700 ml Exam nad EOMI lungs clear no rashes no edema LFTs mildly improved Results Result Diagram: 04/19/17 0443 04/22/17 0515 Results 24 hrs Laboratory Tests Test 04/22/17 05:15 Sodium Level 135 Potassium Level 4.3 Chloride Level 95 L Carbon Dioxide Level 30 Anion Gap 14 Blood Urea Nitrogen 14 Creatinine 0.70 Glucose Level 92 Calcium Level 9.5 Total Bilirubin 2.7 H Direct Bilirubin 1.70 #H Indirect Bilirubin 1.0 Aspartate Amino Transf (AST/SGOT) 656 H Alanine Aminotransferase (ALT/SGPT) 524 H Alkaline Phosphatase 241 H Total Protein 7.8 Albumin 3.3 Globulin 4.50 H Albumin/Globulin Ratio 0.73 Medications Medications Current Medications Acetaminophen (Tylenol Tab) 650 mg Q6H PRN PO PAIN LEVEL 1-3 OR FEVER; Start at 15:30 Docusate Sodium (Colace) 100 mg Q12H PRN PO CONSTIPATION; Start 04/11/17 at 15: 30 Magnesium Hydroxide (Milk Of Mag) 30 ml DAILY PRN PO CONSTIPATION Last administered on 04/22/17t 01:56; Admin Dose 30 ML; Start 04/11/17 at 15:30 Sodium Biphosphate/ Sodium Phosphate (Fleet Enema) 133 ml DAILY PRN [place] CONSTIPATION; Start 04/11/17 at 15:30 Nitroglycerin (Nitroglycerin (Sl Tab) 0.4 Mg) 1 tab Q5M PRN SL ANGINA; Start at 15:30 Hydromorphone HCl (Dilaudid) 0.5 mg Q3H PRN IV PAIN Last administered on 09:42; Admin Dose 0.5 MG; Start 04/14/17 at 12:30 Levofloxacin (Levaquin) 500 mg DAILY@06 PO Last administered on 04/22/17 05:15 ; Admin Dose 500 MG; Start 04/17/17 at 06:00 Metronidazole (Flagyl) 500 mg Q8 PO Last administered on 04/22/17 05:15; Admin Dose 500 MG; Start 04/16/17 at 15:00 Alprazolam (Xanax) 0.25 mg Q8H PRN PO ANXIETY Last administered on 04/21/17 19 :53; Admin Dose 0.25 MG; Start 04/16/17 at 21:30 Zolpidem Tartrate (Ambien) 10 mg HS PRN PO INSOMNIA Last administered on 02:50; Admin Dose 10 MG; Start 04/17/17 at 21:30 Acetaminophen/ Hydrocodone Bitart ([place] (7.5-325)) 1 tab Q6H PRN PO PAIN Last administered on 04/22/17 11:39; Admin Dose 1 TAB; Start 04/19/17 at 00:00 Prochlorperazine (Compazine Inj) 5 mg Q6H PRN IV NAUSEA AND/OR VOMITING Last administered on 04/21/17 21:37; Admin Dose 5 MG; Start 04/19/17 at 11:59 Ondansetron HCl (Zofran Inj) 4 mg Q4H PRN IV NAUSEA AND/OR VOMITING Last administered on 04/22/17 10:01; Admin Dose 4 MG; Start 04/19/17 at 13:30 EZRA WATTS MD Apr 22, 2017 12:15
[2017-04-22] MEDS: ALPRAZOLAM 0.25 MG TAB PO PRN (15:23)
[2017-04-22 15:25] VITALS: BP 140/85; RESP 20
[2017-04-22] MEDS: PROCHLORPERAZINE 10 MG INJ IV PRN (16:54)
[2017-04-22 19:05] VITALS: BP 143/89; RESP 20
[2017-04-23] MEDS: HYDROmorphONE 1 MG/ML SYG IV PRN ×6 (01:02→21:23)
[2017-04-23 02:08] VITALS: BP 137/83; RESP 19
[2017-04-23] MEDS: PROCHLORPERAZINE 10 MG INJ IV PRN ×4 (02:25→21:02)
[2017-04-23] MEDS: HYDROCODONE/APAP (7.5/325) TAB PO PRN ×3 (02:26→19:28)
[2017-04-23] MEDS: LEVOFLOXACIN 500 MG TAB PO SCH (06:13)
[2017-04-23] MEDS: metroNIDAZOLE 500 MG TAB PO SCH ×3 (06:13→21:01)
[2017-04-23] MEDS: ONDANSETRON 4 MG INJ IV PRN ×3 (06:14→19:28)
[2017-04-23 06:52] LABS: ALBUMIN 3.3 g/dl (3.3-4.9); ALBUMIN/GLOBULIN RATIO 0.84; BILIRUBIN,INDIRECT 0.8 mg/dl (0-1.1); BILIRUBIN,TOTAL 1.8 mg/dl (0.2-1.3); CALCIUM 9.1 mg/dl (8.4-10.2); CREATININE 0.74 mg/dl (0.44-1.00); POTASSIUM 4.1 mmol/L (3.5-5.1); TOTAL PROTEIN 7.2 g/dl (6.1-8.1)
[2017-04-23 07:56] VITALS: BP 131/79; RESP 19
--- NOTE | 2017-04-23 12:56 | PN ---
Date/Time of Note Date/Time of Note DATE: 04/23/17 TIME: 12:52 Assessment/Plan Lines/Catheters IV Catheter Type (from Nrsg): Saline Lock Liriano in Place (from Nrsg): No Assessment/Plan Assessment/Plan [facility] Progress Note Date of Service: 04/23/2017 Place of service: [facility] fourth floor Today's Assessment & Plan: Overall stable and continues to slowly improve clinically including her LFT's. Concentric gallbladder noted on the MRCP. Still with fair amount of reported pain; unclear as to how much is from active hepatitis, GB issues and possible drug seeking behavior. No indication for acute surgical intervention until hepatitis has improved. RUQ US showed evidence for possible chronic cholecystitis with cholelithiasis. Even though the patient still reports abdominal pain, she does appear to be improved over the last week clinically. Plan remains lap charles after significant resolution of hepatitis. Discussed with the patient and the team (much appreciate Dr. Arora's input) and answered questions. With above assessment, I've recommended the followin. Continue current management 2. Adequate pain control (patient likely has low threshold for pain and will require larger than normal doses) 3. Multidisciplinary discussion 4. If no surgery or endoscopic intervention planned, the patient may be able to take orals until procedure is planned 5. Likely will need laparoscopic cholecystectomy in a few weeks when hepatitis is improved 6. Monitor LFTs Thank you very much for having me involved in the care of this very pleasant patient and wonderful family. If you have any questions, please feel free to contact me at [phone]. Nature of presenting problem: High severity Please note that, given the extensive number of diagnoses or management options , the extensive amount and/or complexity of data needed to be reviewed ( including more than 50 pages of outside records and outside ultrasound, chest x- ray and CT scan of the abdomen and pelvis), and high risk of complications and/ or morbidity or mortality, this qualifies as high complexity type of decision- making. Disclaimer: Inadvertent spelling and grammatical errors are likely due to EHR/ dictation software use and do not reflect on the quality of delivered patient care. Also, please note that the electronic time recorded on this node does not necessarily reflect the actual time of the visit. Updated clinical summary: A very-pleasant but unfortunate 46-year-old lady with multiple comorbidities, admitted with active hepatitis B infection and possible acute cholecystitis. Comorbidities: 1. Active hepatitis B infection 2. Gallbladder wall thickening in the setting of #1 above, possibly indicating acute cholecystitis 3. Intravenous drug abuse (drug screen positive for opiates, amphetamines at [facility] March 2017) 4. Hypertension 5. Urinary tract infection 6. 4 Subjective: No major events or complaints; still with abd pain and under semi-adequate control with medications; feeling the same than the last few days and still fairly emotional during the discussions; no n/v/d; no sob or cp; + flatus; + BM ; minimal activity Objective: Vitals: See below I's & O's: See below Exam: GENERAL: On exam, the patient was lying in bed and appeared to be comfortable and in no acute distress. Today she was still emotional during the conversation. ABDOMEN: Soft, minimally to no tenderness to palpation in the right upper quadrant and no tenderness in the rest of the abdominal cavity, and nondistended. There are no peritoneal signs or guarding. SKIN: Skin appears to be pink and feels warm to touch. NEUROLOGIC: Patient is awake, alert, and follows commands appropriately. Labs: See below Exam/Review of Systems Vital Signs Vitals Vital Signs Date Time Temp Pulse Resp B/P Pulse Ox O2 Delivery O2 Flow Rate FiO2 04/23/17 07:56 97.1 71 19 131/79 98 04/19/17 12:00 Room Air Intake and Output 04/22/17 04/22/17 04/23/17 15:00 23:00 07:00 Intake Total 460 ml 960 ml Balance 460 ml 960 ml Results Result Diagram: 04/19/17 0443 04/23/17 0420 MILI MORELAND M.D. Apr 23, 2017 12:56
[2017-04-23 15:22] VITALS: BP 119/72; RESP 18
--- NOTE | 2017-04-23 17:17 | PN ---
Date/Time of Note Date/Time of Note DATE: 04/23/17 TIME: 17:02 Assessment/Plan VTE Prophylaxis VTE Prophylaxis Intervention: SCD's Lines[facility] Urinary Cath still in place: No Assessment/Plan Chief Complaint/Hosp Course Assessment and plan: 46-year-old female with abdominal pain, with signs of cholecystitis, elevated LFTs, pancreatitis, positive drug screen, with positive hepatitis B antigen and antibody findings. 1. Abdominal pain: Secondary to combination of possible cholecystitis, UTI, and likely hepatitis B inflammation/infection as again hepatitis panel showed positive hepatitis B core antibody. Also positive hepatitis B surface antigen, and hepatitis B DNA viral load very elevated 24 million IU/mL. AST and ALT were significantly elevated in [id number] range on admission, but trending down to the mid 100 range. total bilirubin and direct bilirubin levels also trending down. MRCP results noted -Continue to trend her LFTs. -Follow-up GI and surgery consult rec's, current diet per surgery team will likely need laparoscopic cholecystectomy when patient is more clinically stable , likely in a few weeks when her liver enzymes and likely hepatitis symptoms have improved. -Continue IV fluids, antiemetics -Hepatitis B total core antibody levels are elevated -will go ahead and order for hepatitis e antigen levels, as well as IgM and IgG hepatitis B core antibody levels. However, per discussion with GI team today, unless patient is showing signs of severe liver failure in the acute setting, treatment of this either chronic or acute hepatitis B not indicated at this time. -Follow-up ID Recs 2. UTI: Diagnosed at outside hospital -completed broad-spectrum antibiotics - follow final culture results, Tylenol as needed pain fever 3. Positive drug screen: Again positive for lead, opiates, amphetamines on admission. Prior history of heroin abuse -Monitor for withdrawal 4. Hypertension: Blood pressure presently stable, hydralazine as needed 5. Dispo: Hopefully home in 24 hours if LFTs continue to trend down. 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 Problems: Subjective 24 Hr Interval Summary Free Text/Dictation Patient still with occasional right upper quadrant pain, seen by general surgery team today. Found with very very elevated hepatitis B DNA levels from send out labs Exam/Review of Systems Vital Signs Vitals Vital Signs Date Time Temp Pulse Resp B/P Pulse Ox O2 Delivery O2 Flow Rate FiO2 04/23/17 15:22 97.8 78 18 119/72 100 04/19/17 12:00 Room Air Intake and Output 04/22/17 04/22/17 04/23/17 15:00 23:00 07:00 Intake Total 460 ml 960 ml Balance 460 ml 960 ml Exam nad, sleeping EOMI S1, S2 heard lungs clear no rashes no edema Results Result Diagram: 04/19/17 0443 04/23/17 0420 Results 24 hrs Laboratory Tests Test 04/23/17 04:20 Sodium Level 139 Potassium Level 4.1 Chloride Level 100 Carbon Dioxide Level 25 Anion Gap 18 H Blood Urea Nitrogen 14 Creatinine 0.74 Glucose Level 114 Calcium Level 9.1 Total Bilirubin 1.8 H Direct Bilirubin 1.00 #H Indirect Bilirubin 0.8 Aspartate Amino Transf (AST/SGOT) 554 H Alanine Aminotransferase (ALT/SGPT) 422 H Alkaline Phosphatase 238 H Total Protein 7.2 Albumin 3.3 Globulin 3.90 H Albumin/Globulin Ratio 0.84 Medications Medications Current Medications Acetaminophen (Tylenol Tab) 650 mg Q6H PRN PO PAIN LEVEL 1-3 OR FEVER; Start at 15:30 Docusate Sodium (Colace) 100 mg Q12H PRN PO CONSTIPATION; Start 04/11/17 at 15: 30 Magnesium Hydroxide (Milk Of Mag) 30 ml DAILY PRN PO CONSTIPATION Last administered on 04/22/17 01:56; Admin Dose 30 ML; Start 04/11/17 at 15:30 Sodium Biphosphate/ Sodium Phosphate (Fleet Enema) 133 ml DAILY PRN [place] CONSTIPATION; Start 04/11/17 at 15:30 Nitroglycerin (Nitroglycerin (Sl Tab) 0.4 Mg) 1 tab Q5M PRN SL ANGINA; Start at 15:30 Levofloxacin (Levaquin) 500 mg DAILY@06 PO Last administered on 04/23/17 06:13 ; Admin Dose 500 MG; Start 04/17/17 at 06:00 Metronidazole (Flagyl) 500 mg Q8 PO Last administered on 04/23/17 13:10; Admin Dose 500 MG; Start 04/16/17 at 15:00 Alprazolam (Xanax) 0.25 mg Q8H PRN PO ANXIETY Last administered on 04/22/17 15 :23; Admin Dose 0.25 MG; Start 04/16/17 at 21:30 Zolpidem Tartrate (Ambien) 10 mg HS PRN PO INSOMNIA Last administered on 21:07; Admin Dose 10 MG; Start 04/17/17 at 21:30 Acetaminophen/ Hydrocodone Bitart ([place] (7.5-325)) 1 tab Q6H PRN PO PAIN Last administered on 04/23/17 11:09; Admin Dose 1 TAB; Start 04/19/17 at 00:00 Prochlorperazine (Compazine Inj) 5 mg Q6H PRN IV NAUSEA AND/OR VOMITING Last administered on 04/23/17 15:09; Admin Dose 5 MG; Start 04/19/17 at 11:59 Ondansetron HCl (Zofran Inj) 4 mg Q4H PRN IV NAUSEA AND/OR VOMITING Last administered on 04/23/17 13:10; Admin Dose 4 MG; Start 04/19/17 at 13:30 Hydromorphone HCl (Dilaudid) 0.5 mg Q6H PRN IV PAIN; Start 04/23/17 at 21:30 LUCIANO MAIER Apr 23, 2017 17:12
--- NOTE | 2017-04-23 19:07 | PN ---
Date/Time of Note Date/Time of Note DATE: 04/23/17 TIME: 19:05 Assessment/Plan VTE Prophylaxis VTE Prophylaxis Intervention: SCD's Lines/Catheters IV Catheter Type (from Nrs): Saline Lock Urinary Cath still in place: No Assessment/Plan Assessment/Plan ssessment * Right upper quadrant pain/abnormal liver function tests with hepatocellular pattern * Acute hepatitis B * Cholelithiasis, no evidence of choledocholithiasis * Polysubstance abuse/IV drug abuse * History of hypertension * Opiate seeking behavior * Anxiety Plan * Patient appears safe for outpatient management * Continue present regimen * Monitor liver function tests * Defer cholecystectomy until resolution of acute hepatitis * Allow up with hepatology clinic Subjective Subjective 24 Hr Interval Summary Free Text/Dictation * Course reviewed with RN * Patient seen and examined * Still complaining of pain * Pain management switch to oral * She states she has no place to go Exam Constitutional: alert, oriented, well developed Neck: non-tender, supple Respiratory: clear to auscultation, normal air movement Cardiovascular: nl pulses, regular rate and rhythm Gastrointestinal: bowel sounds, non-tender, soft Musculoskeletal: nl extremities to inspection, nl gait and stance Extremities: normal pulses Exam/Review of Systems Vital Signs Vitals Vital Signs Date Time Temp Pulse Resp B/P Pulse Ox O2 Delivery O2 Flow Rate FiO2 04/23/17 15:22 97.8 78 18 119/72 100 04/19/17 12:00 Room Air Intake and Output 04/22/17 04/22/17 04/23/17 15:00 23:00 07:00 Intake Total 460 ml 960 ml Balance 460 ml 960 ml Results Result Diagram: 04/19/17 0443 04/23/17 0420 Results 24 hrs Laboratory Tests Test 04/23/17 04:20 Sodium Level 139 Potassium Level 4.1 Chloride Level 100 Carbon Dioxide Level 25 Anion Gap 18 H Blood Urea Nitrogen 14 Creatinine 0.74 Glucose Level 114 Calcium Level 9.1 Total Bilirubin 1.8 H Direct Bilirubin 1.00 #H Indirect Bilirubin 0.8 Aspartate Amino Transf (AST/SGOT) 554 H Alanine Aminotransferase (ALT/SGPT) 422 H Alkaline Phosphatase 238 H Total Protein 7.2 Albumin 3.3 Globulin 3.90 H Albumin/Globulin Ratio 0.84 Medications Medications Current Medications Acetaminophen (Tylenol Tab) 650 mg Q6H PRN PO PAIN LEVEL 1-3 OR FEVER; Start at 15:30 Docusate Sodium (Colace) 100 mg Q12H PRN PO CONSTIPATION; Start 04/11/17 at 15: 30 Magnesium Hydroxide (Milk Of Mag) 30 ml DAILY PRN PO CONSTIPATION Last administered on 04/22/17 01:56; Admin Dose 30 ML; Start 04/11/17 at 15:30 Sodium Biphosphate/ Sodium Phosphate (Fleet Enema) 133 ml DAILY PRN [place] CONSTIPATION; Start 04/11/17 at 15:30 Nitroglycerin (Nitroglycerin (Sl Tab) 0.4 Mg) 1 tab Q5M PRN SL ANGINA; Start at 15:30 Levofloxacin (Levaquin) 500 mg DAILY@06 PO Last administered on 04/23/17 06:13 ; Admin Dose 500 MG; Start 04/17/17 at 06:00 Metronidazole (Flagyl) 500 mg Q8 PO Last administered on 04/23/17 13:10; Admin Dose 500 MG; Start 04/16/17 at 15:00 Alprazolam (Xanax) 0.25 mg Q8H PRN PO ANXIETY Last administered on 04/22/17 15 :23; Admin Dose 0.25 MG; Start 04/16/17 at 21:30 Zolpidem Tartrate (Ambien) 10 mg HS PRN PO INSOMNIA Last administered on 21:07; Admin Dose 10 MG; Start 04/17/17 at 21:30 Acetaminophen/ Hydrocodone Bitart ([place] (7.5-325)) 1 tab Q6H PRN PO PAIN Last administered on 04/23/17 11:09; Admin Dose 1 TAB; Start 04/19/17 at 00:00 Prochlorperazine (Compazine Inj) 5 mg Q6H PRN IV NAUSEA AND/OR VOMITING Last administered on 04/23/17 15:09; Admin Dose 5 MG; Start 04/19/17 at 11:59 Ondansetron HCl (Zofran Inj) 4 mg Q4H PRN IV NAUSEA AND/OR VOMITING Last administered on 04/23/17 13:10; Admin Dose 4 MG; Start 04/19/17 at 13:30 Hydromorphone HCl (Dilaudid) 0.5 mg Q6H PRN IV PAIN; Start 04/23/17 at 21:30 DEEPAK SELLERS MD Apr 23, 2017 19:07
[2017-04-23 19:08] VITALS: BP 123/75; RESP 16
[2017-04-23 19:10] VITALS: BP 128/76; RESP 18
[2017-04-23] MEDS: ZOLPIDEM 5 MG TAB PO PRN (21:01)
--- NOTE | 2017-04-24 04:00 | PN ---
DATE: 04/23/2017 SUBJECTIVE DATA: No acute changes. Patient looks comfortable. No fevers. No vomiting or diarrhea. No labs this morning. ANTIMICROBIALS: Patient remains on Levaquin and Flagyl. Total antibiotics day number 13. PHYSICAL EXAMINATION: GENERAL: Well-developed, middle-aged white woman, who is in no distress. HEENT: Head atraumatic, normocephalic. Sclerae anicteric. Buccal mucosa dry. NECK: Supple. CHEST: Rise symmetrical. Breath sounds diminished at the bases. HEART: S1, S2. ABDOMEN: Soft, bowel sounds present. EXTREMITIES: Without cyanosis. ASSESSMENT: 1. Acute hepatitis B virus infection. 2. Acute cholecystitis. 3. Status post systemic inflammatory response syndrome. 4. History of drug abuse. 5. Hypertension. PLAN: Patient remains stable. She is being seen by multiple consultants. White blood cell count normalized. Liver function tests slowly tracing down. We will continue her on current antibiotics for a couple more days. Dictated By: Jocelyn Morse NP /savannah/lizz /Document#: [id number]
[2017-04-24] MEDS: ONDANSETRON 4 MG INJ IV PRN (05:00)
[2017-04-24] MEDS: HYDROmorphONE 1 MG/ML SYG IV PRN ×3 (05:00→17:03)
[2017-04-24] MEDS: LEVOFLOXACIN 500 MG TAB PO SCH (05:41)
[2017-04-24] MEDS: metroNIDAZOLE 500 MG TAB PO SCH (05:42)
[2017-04-24] MEDS: HYDROCODONE/APAP (7.5/325) TAB PO PRN ×3 (05:42→17:39)
[2017-04-24 06:03] LABS: ALBUMIN 3.3 g/dl (3.3-4.9); BILIRUBIN,DIRECT 0.2 mg/dl (0.00-0.20); BILIRUBIN,INDIRECT 0.7 mg/dl (0-1.1); BILIRUBIN,TOTAL 0.9 mg/dl (0.2-1.3); TOTAL PROTEIN 7.4 g/dl (6.1-8.1)
[2017-04-24] MEDS: ALPRAZOLAM 0.25 MG TAB PO PRN (07:03)
[2017-04-24 07:54] VITALS: BP 176/96; RESP 18
[2017-04-24] MEDS ORDERED: hydrALAzine 20 MG INJ IV PRN (08:00)
[2017-04-24] MEDS: PROCHLORPERAZINE 10 MG INJ IV PRN (08:12)
[2017-04-24 12:35] VITALS: BP 149/82; RESP 18
--- NOTE | 2017-04-24 12:42 | CONS ---
Date/Time of Note Date/Time of Note DATE: 04/24/17 TIME: 12:41 Assessment/Plan Assessment/Plan Chief Complaint/Hosp Course No acute changes, awake, looks comfortable, afebrile ANTIMICROBIAL: Filemonaqisa, Robin PHYSICAL EXAMINATION: GENERAL: This is a well-developed, well-nourished, middle-aged woman who is in no distress. HEENT: Head atraumatic, normocephalic. Sclerae anicteric. Buccal mucosa dry. NECK: Supple. CHEST: Rise symmetrical. Breath sounds diminished at the bases. ABDOMEN: Soft, bowel sounds hypoactive. EXTREMITIES: Without cyanosis. ASSESSMENT: 1. HBV 2. Cholecystitis 3. Hypertension. 4. Drug abuse. 5. Opiate and drug-seeking behavior. PLAN: Patient remains stable, completed two weeks abx, will dc and observe, f/u surgical/GI rec-s [facility] staff Problems: Consultation Date/Type/Reason Admit Date/Time Apr 11, 2017 at 14:15 Initial Consult Date 04/12/17 Type of Consultation: ID Referring Provider: LUCIANO MAIER Exam/Review of Systems Vital Signs Vitals Vital Signs Date Time Temp Pulse Resp B/P Pulse Ox O2 Delivery O2 Flow Rate FiO2 04/24/17 12:35 98.3 121 18 149/82 100 Intake and Output 04/23/17 04/23/17 04/24/17 15:00 23:00 07:00 Intake Total 900 ml 320 ml Output Total 1200 ml Balance -300 ml 320 ml Results Result Diagram: 04/23/17 0420 Results 24 hrs Laboratory Tests Test 04/24/17 05:00 Total Bilirubin 0.9 Direct Bilirubin 0.20 # Indirect Bilirubin 0.7 Aspartate Amino Transf (AST/SGOT) 469 H Alanine Aminotransferase (ALT/SGPT) 369 H Alkaline Phosphatase 225 H Total Protein 7.4 Albumin 3.3 Medications Medications Current Medications Acetaminophen (Tylenol Tab) 650 mg Q6H PRN PO PAIN LEVEL 1-3 OR FEVER; Start at 15:30 Docusate Sodium (Colace) 100 mg Q12H PRN PO CONSTIPATION; Start 04/11/17 at 15: 30 Magnesium Hydroxide (Milk Of Mag) 30 ml DAILY PRN PO CONSTIPATION Last administered on 04/22/17t 01:56; Admin Dose 30 ML; Start 04/11/17 at 15:30 Sodium Biphosphate/ Sodium Phosphate (Fleet Enema) 133 ml DAILY PRN [place] CONSTIPATION; Start 04/11/17 at 15:30 Nitroglycerin (Nitroglycerin (Sl Tab) 0.4 Mg) 1 tab Q5M PRN SL ANGINA; Start at 15:30 Alprazolam (Xanax) 0.25 mg Q8H PRN PO ANXIETY Last administered on 04/24/17 07 :03; Admin Dose 0.25 MG; Start 04/16/17 at 21:30 Zolpidem Tartrate (Ambien) 10 mg HS PRN PO INSOMNIA Last administered on 21:01; Admin Dose 10 MG; Start 04/17/17 at 21:30 Acetaminophen/ Hydrocodone Bitart ([place] (7.5-325)) 1 tab Q6H PRN PO PAIN Last administered on 04/24/17 05:42; Admin Dose 1 TAB; Start 04/19/17 at 00:00 Prochlorperazine (Compazine Inj) 5 mg Q6H PRN IV NAUSEA AND/OR VOMITING Last administered on 04/24/17 08:12; Admin Dose 5 MG; Start 04/19/17 at 11:59 Ondansetron HCl (Zofran Inj) 4 mg Q4H PRN IV NAUSEA AND/OR VOMITING Last administered on 04/24/17 05:00; Admin Dose 4 MG; Start 04/19/17 at 13:30 Hydromorphone HCl (Dilaudid) 0.5 mg Q6H PRN IV PAIN Last administered on 10:54; Admin Dose 0.5 MG; Start 04/23/17 at 21:30 Hydralazine HCl (Apresoline) 10 mg Q6H PRN IV ELEVATED SYSTOLIC BP Last administered on 04/24/17 08:12; Admin Dose 10 MG; Start 04/24/17 at 08:00 HORTENSIA RICO NP Apr 24, 2017 12:42
--- NOTE | 2017-04-24 13:21 | PDOCDIS ---
Discharge Instructions CONDITION Patient Condition: Stable HOME CARE INSTRUCTIONS: Special Diet: low fat low NA ACTIVITY: Activity Restrictions: Slowly Increase Activity FOLLOW UP/APPOINTMENTS Follow-up Plan Please take your medications as prescribed. Please follow-up with your primary care doctor in the next few days. Please set up appointment with your loan specialist as well given your liver issues. LUCIANO MAIER Apr 24, 2017 13:21
[2017-04-24] MEDS ORDERED: ZOLP5TAB PO (13:36)
[2017-04-24] MEDS ORDERED: ALPR0.254 PO (13:36)
[2017-04-24] MEDS ORDERED: UDMOM PO (13:36)
[2017-04-24] MEDS ORDERED: ALBU8.5H3 INH (13:36)
[2017-04-24] MEDS ORDERED: ONDA-43 PO (13:36)
--- NOTE | 2017-04-24 14:42 | DS ---
DATE OF ADMISSION: 04/11/2017 DATE OF DISCHARGE: 04/24/2017 HOSPITAL COURSE: This is a 46-year-old female originally admitted on and being discharged home on 04/24/2017. The patient came in with significant abdominal pain. She was transferred from an outside hospital. She had abdominal pain with signs of acute cholecystitis as well as pancreatitis and positive drug screen. She was admitted, and seen by multiple specialists during this hospital stay. She was also noted with very elevated liver function tests as well. The patient was admitted as mentioned, seen by General surgery team, GI team, Infectious Disease team. Her pancreatitis resolved. She was also diagnosed with a urinary tract infection. She was placed on antibiotics for that. Her drug screen did show positive opiates and amphetamine and she has a prior history of heroin abuse in the past. She was monitored for signs of withdrawal and detoxified for that. Regarding her elevated liver function tests, because of the acute cholecystitis surgery team, as mentioned above, monitored the patient. Although, they deferred any kind of surgery including laparoscopic cholecystectomy until after her liver function tests resolved. She was diagnosed with likely hepatitis B inflammation and infection. Whether this is acute or chronic was still to be determined. As we are still missing some final serology tests regarding the hepatitis-B infection. In any event, she did not show any signs of any overt liver failure and as her liver function tests were monitored during her in 2 week stay, they slowly trended down to close to normal levels. By the time of discharge, her abdominal pain symptoms improved. She was counseled on drug cessation as well. She was able to ambulate and tolerate an oral diet. She completed antibiotic treatment for the urinary tract infection as well. After discussion with the consulting teams, she will need outpatient motorcycle fabricator for further evaluation and possible treatment of her acute hepatitis, but again her liver function tests are trending down. Her abdominal pain has improved. She able to ambulate and tolerate an oral diet. She will be discharged home today in improved condition. She has a followup appointment with her primary care doctor in the next few days as well. DISCHARGE MEDICATIONS: She will be discharged home with the following medications at home. She will get an Ambien 5 mg orally every night at bedtime as needed. Xanax 0.25 mg orally every 12 h as needed. [place] 5/325, 1 tablet orally every 6 h as needed. ProAir HFA 1-2 puffs inhaled every 4 hours as needed. Milk of magnesia 30 mL orally daily as needed. Zofran 4 mg orally every 4 h as needed. FOLLOWUP: Continue to followup again with primary care doctor and hepatology as an outpatient in the next 1-2 weeks. FINAL DIAGNOSES: 1. Abdominal pain, secondary to combination of acute cholecystitis, pancreatitis, and looks like hepatitis-B infection, with elevated LFTs, now slowly improving. 2. Positive drug screen for lead, opiates and amphetamines counts on drug cessation. 3. Hypertension. Of note, primary care doctor will need to follow up her remaining hepatitis serology, including hepatitis C antigen as well as hepatitis core antibody IgM, and IgG levels. Her viral load was very elevated at 24,000,000 units. But again, clinically she is improving. TIME SPENT ON DISCHARGE: 45 minutes. Dictated By: Juan Naik MD /savannah/hansa /Document#: [id number]
== END 2017-04-24 18:30 | disposition home or self-care (01) | DRG 441 ==
LOC: MS4 14:15 → MS1 04-13 13:47
PROVIDERS: ADMIT Internal Medicine; ATTEND Internal Medicine
DX: B16.9 Acute hepatitis B without delta-agent and without hepatic coma (principal); K85.90 Acute pancreatitis without necrosis or infection, unspecified; K81.0 Acute cholecystitis; N39.0 Urinary tract infection, site not specified; I10 Essential (primary) hypertension; F15.90 Other stimulant use, unspecified, uncomplicated; F11.10 Opioid abuse, uncomplicated; Z72.0 Tobacco use; F12.90 Cannabis use, unspecified, uncomplicated; Z76.5 Malingerer [conscious simulation]; F41.9 Anxiety disorder, unspecified
CPT/HCPCS: 74181; 76705; 78226; 80048; 80053; 80061; 80076; 82103; 82390; 82728; 82962; 83036; 83690; 83735; 84100; 84439; 84443; 85025; 85610; 86021; 86038; 86692; 86703; 86704; 86706; 86709; 86803; 87040; 87086; 87340; A9537; J0360; J0780; J1170; J1644; J1885; J2060; J2270; J2405; J2543; J2765; J7030; J7042